=== PATIENT | female | born 1960 | race Caucasian/White ===

== ENCOUNTER → 2016-09-04 | Outpatient (CLI) | payer BC, MEDICARE ==
[2016-09-04 11:37] LABS: Blood Urea Nitrogen 16 mg/dL (7-17); Non-African American GFR(MDRD) >60 (>60 ml/min/1.73 sqM)
--- NOTE | 2016-09-04 12:42 | CT ---
EXAMINATION TYPE: CT abdomen wo/w con DATE OF EXAM: 09/04/2016 12:28 PM HISTORY: Epigastric pain and nausea per brewing technician. Acute pancreatitis per order. CT DLP: 1607.8mGycm Automated Exposure Control for Dose Reduction was Utilized. CONTRAST: CT scan of the abdomen is performed with oral and without and with IV Contrast, patient injected with 100 mL of Omnipaque 300. COMPARISON: CT abdomen pelvis January 27, 2016.. FINDINGS: LUNG BASES: No significant abnormality is appreciated. LIVER/GB: No significant abnormality is appreciated. PANCREAS: Pancreas is normal in size. No ductal dilatation is seen. No suspicious solid or cystic mas ses identified. No calcifications are noted. Homogeneous postcontrast enhancement is present without surrounding fat stranding seen. SPLEEN: No significant abnormality is seen. ADRENALS: No significant abnormality is seen. KIDNEYS: No renal calculi identified on today's noncontrast study. BOWEL: Sutures from appendectomy are seen at base of cecum. There is no suspicious small or large bow el dilatation. LYMPH NODES: No greater than 1cm abdominal lymph nodes are appreciated. Some scattered subcentimeter retroperitoneal lymph nodes along course of aorta and IVC are identified. OSSEOUS STRUCTURES: Some spurring in the lower thoracic spine is present. OTHER: There is fairly moderate aftereffect change of distal abdominal aorta and iliac branch vessels . Small caliber vessels distally are noted. IMPRESSION: No CT finding for complication related to acute pancreatitis. Pancreas appears unremarkab le. No bowel obstruction is seen. No significant finding is seen to account for patient's symptoms on this exam.
== END | disposition home or self-care (01) ==
LOC: RADCTMAIN 10:56
PROVIDERS: ATTEND Family Medicine
DX: K85.90 Acute pancreatitis without necrosis or infection, unspecified (principal)
CPT/HCPCS: 82565; 84520; 74170; 36415; Q9967

== ENCOUNTER 2016-10-11 19:58 | Emergency (ER) | payer BC, MEDICARE ==
[2016-10-11] MEDS ORDERED: PANTOPRAZOLE 40 MG/10 ML VIAL IVP STA (20:43)
[2016-10-11] MEDS ORDERED: SODIUM CHLORIDE 0.9% 1,000 ML IV STA (20:43)
--- NOTE | 2016-10-11 20:49 | ED ---
General Adult HPI - General Source: patient, family, RN notes reviewed, old records reviewed Mode of arrival: ambulatory Limitations: no limitations <Sandeep Magdaleno - Last Filed: 10/11/16 20:44> <Rafael Cervantes - Last Filed: 10/11/16 23:45> - General Chief complaint: Abdominal Pain Stated complaint: Abd Pain Time Seen by Provider: 10/11/16 20:28 - History of Present Illness Initial comments: Chief complaint history of present illness this is a 56-year-old female here with family. The patient reports for the past 2 weeks she been having epigastric radiating around to the right upper quadrant around to the right flank area. Everything causes pain even drinking water. Patient had this pain several different times over the past several years no specific diagnosis made though on old chart does speak of pancreatitis at one time. Patient denies any change in the color of her stool or urine. (Sandeep Magdaleno) - Related Data Home Medications Medication Instructions Recorded Confirmed Aspirin 325 mg PO HS 09/26/14 10/11/16 Atorvastatin [Lipitor] 80 mg PO HS 09/26/14 10/11/16 Gabapentin [Neurontin] 100 mg PO HS 09/26/14 10/11/16 Gemfibrozil [Lopid] 600 mg PO AC-BID 09/26/14 10/11/16 Ipratropium/Albuterol Sulfate 1 puff INHALATION RT-QID PRN 09/26/14 10/11/16 [Combivent Respimat Inhaler] Nitroglycerin 1 spray SL ONCE PRN 09/26/14 10/11/16 Omeprazole 40 mg PO DAILY 09/26/14 10/11/16 metFORMIN HCL [Metformin HCl ER] 500 mg PO DAILY 09/26/14 10/11/16 Ranitidine HCl [Zantac] 150 mg PO BID 03/05/15 10/11/16 Insulin Aspart [NovoLOG] See Protocol SQ CONTINUOUS 03/06/15 10/11/16 Liraglutide [Victoza 3-Alexandro] 1.8 mg SQ DAILY 01/27/16 10/11/16 Metoclopramide [Reglan] 10 mg PO ACHS 01/27/16 10/11/16 Previous Rx's Medication Instructions Recorded Atenolol [Tenormin] 25 mg PO DAILY #0 tab 01/29/16 Docusate [Colace] 100 mg PO BID cap 01/29/16 Lisinopril [Zestril] 40 mg PO DAILY #60 tab 01/29/16 Hydrocodone/Acetaminophen [Marblemount 1 each PO Q6HR PRN #20 tab 10/11/16 5-325] Allergies Allergy/AdvReac Type Severity Reaction Status Date / Time No Known Allergies Allergy Verified 10/11/16 20:18 Review of Systems ROS Other: All systems not noted in ROS Statement are negative. <Sandeep Magdaleno - Last Filed: 10/11/16 20:44> ROS Other: All systems not noted in ROS Statement are negative. <Rafael Cervantes - Last Filed: 10/11/16 23:45> ROS Statement: Those systems with pertinent positive or pertinent negative responses have been documented in the HPI. Review of systems no visual acuity changes no headache no stiff neck no chest pain or shortness of breath the patient's pain radiates from the epigastric region to the right upper quadrant to the right flank area. No nausea no vomiting. Anything she eats or drinks causes pain. No problems, no neuro deficits. All systems are reviewed. Past medical problems significant for angina and chest pain with an [place]. Insulin-dependent diabetes mellitus she has a pump. Patient also history of pancreatitis. Surgeries carpal tunnel, bilateral. Open-heart surgery approximately 10 years ago. And previous appendectomy. Family history no cancers. Patient denies any ALLERGIES. She does smoke strongly encouraged to stop denies alcohol use. (Sandeep Magdaleno) Past Medical History Past Medical History: Chest Pain / Angina, Diabetes Mellitus, Myocardial Infarction ([place]) Additional Past Medical History / Comment(s): Pancreatitis Last Myocardial Infarction Date:: 2002 History of Any Multi-Drug Resistant Organisms: None Reported Past Surgical History: Appendectomy Additional Past Surgical History / Comment(s): Open heart in 2002. bilateral carpal tunnel sx Past Anesthesia/Blood Transfusion Reactions: No Reported Reaction Past Psychological History: No Psychological Hx Reported Smoking Status: Current every day smoker Past Alcohol Use History: None Reported Past Drug Use History: None Reported - Past Family History Mother History Unknown: Yes <Sandeep Magdaleno - Last Filed: 10/11/16 20:44> General Exam Limitations: no limitations <Sandeep Magdaleno - Last Filed: 10/11/16 20:44> <Rafael Cervantes - Last Filed: 10/11/16 23:45> - General Exam Comments Initial Comments: General: The patient is awake and alert, complains of a two-week history of pain from the epigastric region to the right upper quadrant. Anything I would think she eats or drinks increases the pain. Vital signs show temperature 98.2 pulse 88 respiratory rate 20 pulse ox 96% room air initial blood pressure 181/80. This be repeated. A she will be following up with her family physician this week. Eye: Pupils are equal, round and reactive to light, extra-ocular movements are intact ; there is normal conjunctiva bilaterally. No signs of icterus. Ears, nose, mouth and throat: There are moist mucous membranes and no oral lesions. The patient's edentulous Neck: The neck is supple, there is no tenderness , no anterior cervical lymphadenopathy. Cardiovascular: There is a regular rate and rhythm. No murmur, rub or gallop is appreciated. Respiratory: Lungs are clear to auscultation, respirations are non-labored, breath sounds are equal. No wheezes, stridor, rales, or rhonchi. Gastrointestinal: Pain with even mild palpation from the epigastric region to the right upper quadrant. Positive Carbajal sign. No organomegaly. Patient states she feels bloated. Back: The pain starts in the epigastric to right upper quadrant goes sometimes into the right flank and the right shoulder area. Musculoskeletal: Normal ROM, no tenderness, There is no pedal edema. There is no calf tenderness or swelling. Sensation intact. Pulses equal bilaterally 2+. Neurological: No evidence of a neuro deficits. No complaints of weakness or balance problems. Skin: Skin is warm and dry and no rashes or lesions are noted. Dry skin wrists feet. (Sandeep Magdaleno) Medical Decision Making <Sandeep Magdaleno - Last Filed: 10/11/16 20:44> - Lab Data Result diagrams: 10/11/16 21:08 10/11/16 21:08 <Rafael Cervantes - Last Filed: 10/11/16 23:45> - Medical Decision Making I receive this patient has a sign out, pending the lab studies. Following the medications and the studies I reevaluated the patient. She is feeling much better and requests to go home. We discussed appropriate further care and follow-up for pancreatitis as well as return criteria. I did review her computed tomography scan from last year which does not show any concerning mass. I did discuss recommendation to have GI follow-up and discuss possibility of ERCP versus MRCP, though she has had previous pancreatitis and it sounds like this may be related to hyperlipidemia. Again the patient did decline admission (Rafael Cervantes) - Lab Data Lab Results 10/11/16 10/11/16 10/11/16 Range/Units 21:08 21:08 21:08 WBC 9.3 (3.8-10.6) k/uL RBC 4.70 (3.80-5.40) m/uL Hgb 14.1 (11.4-16.0) gm/dL Hct 42.6 (34.0-46.0) % MCV 90.6 (80.0-100.0) fL MCH 30.0 (25.0-35.0) pg MCHC 33.1 (31.0-37.0) g/dL RDW 13.2 (11.5-15.5) % Plt Count 234 (150-450) k/uL Neutrophils % 52 % Lymphocytes % 38 % Monocytes % 5 % Eosinophils % 2 % Basophils % 1 % Neutrophils # 4.8 (1.3-7.7) k/uL Lymphocytes # 3.5 (1.0-4.8) k/uL Monocytes # 0.5 (0-1.0) k/uL Eosinophils # 0.2 (0-0.7) k/uL Basophils # 0.1 (0-0.2) k/uL Sodium 140 (137-145) mmol/L Potassium 4.3 (3.5-5.1) mmol/L Chloride 103 (98-107) mmol/L Carbon Dioxide 25 (22-30) mmol/L Anion Gap 12 mmol/L BUN 15 (7-17) mg/dL Creatinine 0.55 (0.52-1.04) mg/dL Est GFR (MDRD) Af Amer >60 (>60 ml/min/1.73 sqM) Est GFR (MDRD) Non-Af >60 (>60 ml/min/1.73 sqM) Glucose 317 H (74-99) mg/dL Plasma Lactic Acid Fabrizio 1.8 (0.7-2.0) mmol/L Calcium 9.4 (8.4-10.2) mg/dL Total Bilirubin 0.5 (0.2-1.3) mg/dL AST 18 (14-36) U/L ALT 27 (9-52) U/L Alkaline Phosphatase 148 H (38-126) U/L Total Protein 7.2 (6.3-8.2) g/dL Albumin 4.2 (3.5-5.0) g/dL Amylase 255 H (30-110) U/L Lipase 3281 H (23-300) U/L Urine Color Urine Appearance (Clear) Urine pH (5.0-8.0) Ur Specific Lane (1.001-1.035) Urine Protein (Negative) Urine Glucose (UA) (Negative) Urine Ketones (Negative) Urine Blood (Negative) Urine Nitrite (Negative) Urine Bilirubin (Negative) Urine Urobilinogen (<2.0) mg/dL Ur Leukocyte Esterase (Negative) 10/11/16 Range/Units 21:08 WBC (3.8-10.6) k/uL RBC (3.80-5.40) m/uL Hgb (11.4-16.0) gm/dL Hct (34.0-46.0) % MCV (80.0-100.0) fL MCH (25.0-35.0) pg MCHC (31.0-37.0) g/dL RDW (11.5-15.5) % Plt Count (150-450) k/uL Neutrophils % % Lymphocytes % % Monocytes % % Eosinophils % % Basophils % % Neutrophils # (1.3-7.7) k/uL Lymphocytes # (1.0-4.8) k/uL Monocytes # (0-1.0) k/uL Eosinophils # (0-0.7) k/uL Basophils # (0-0.2) k/uL Sodium (137-145) mmol/L Potassium (3.5-5.1) mmol/L Chloride (98-107) mmol/L Carbon Dioxide (22-30) mmol/L Anion Gap mmol/L BUN (7-17) mg/dL Creatinine (0.52-1.04) mg/dL Est GFR (MDRD) Af Amer (>60 ml/min/1.73 sqM) Est GFR (MDRD) Non-Af (>60 ml/min/1.73 sqM) Glucose (74-99) mg/dL Plasma Lactic Acid Fabrizio (0.7-2.0) mmol/L Calcium (8.4-10.2) mg/dL Total Bilirubin (0.2-1.3) mg/dL AST (14-36) U/L ALT (9-52) U/L Alkaline Phosphatase (38-126) U/L Total Protein (6.3-8.2) g/dL Albumin (3.5-5.0) g/dL Amylase (30-110) U/L Lipase (23-300) U/L Urine Color Yellow Urine Appearance Clear (Clear) Urine pH 6.0 (5.0-8.0) Ur Specific Lane 1.013 (1.001-1.035) Urine Protein Negative (Negative) Urine Glucose (UA) 3+ H (Negative) Urine Ketones Negative (Negative) Urine Blood Negative (Negative) Urine Nitrite Negative (Negative) Urine Bilirubin Negative (Negative) Urine Urobilinogen <2.0 (<2.0) mg/dL Ur Leukocyte Esterase Negative (Negative) Disposition <Sandeep Magdaleno - Last Filed: 10/11/16 20:44> <Rafael Cervantes - Last Filed: 10/11/16 23:45> Clinical Impression: Acute pancreatitis Disposition: HOME SELF-CARE Condition: Good Instructions: Pancreatitis (ED) Additional Instructions: As we discussed, follow-up with the combat systems operator mine warfare to discuss having a possible ERCP versus MRCP. As we discussed if things are worsening return to be admitted to the hospital. Prescriptions: Hydrocodone/Acetaminophen [Marblemount 5-325] 1 each PO Q6HR PRN #20 tab PRN Reason: Pain Referrals: Cedrick Flores MD [Primary Care Provider] - 1-2 days Alex Martinez MD [STAFF PHYSICIAN] - 1-2 days
[2016-10-11 21:23] LABS: Appearance,Urine Clear (Clear); Bilirubin,Urine Negative (Negative); Glucose,Urine (UA) 3+ (Negative); Ketones,Urine Negative (Negative); Leukocyte Esterase,Urine Negative (Negative); Nitrite,Urine Negative (Negative); Protein,Urine Negative (Negative); Specific Gravity,Urine 1.013 (1.001-1.035); UA Billing (MACRO vs. MICRO) CHEM; Urobilinogen,Urine <2.0 mg/dL (<2.0)
[2016-10-11 21:27] LABS: Basophils # (A) 0.1 k/uL (0-0.2); Basophils % (A) 1 %; CH 29.9; CHCM 33.1; Eosinophils # (A) 0.2 k/uL (0-0.7); Eosinophils % (A) 2 %; HCT 42.6 % (34.0-46.0); HDW 2.52; HGB 14.1 gm/dL (11.4-16.0); Luc # (Auto) 0.24; Luc % (Auto) 3; Lymphocytes # (A) 3.5 k/uL (1.0-4.8); Lymphocytes % (A) 38 %; MCHC 33.1 g/dL (31.0-37.0); MCV 90.6 fL (80.0-100.0); Mean Platelet Volume 7.3; Monocytes # (A) 0.5 k/uL (0-1.0); Monocytes % (A) 5 %; Neutrophils # (A) 4.8 k/uL (1.3-7.7); Neutrophils % (A) 52 %; RDW 13.2 % (11.5-15.5); WBC 9.3 k/uL (3.8-10.6); WBC (Perox) 9.44
[2016-10-11 21:32] LABS: ALT 27 U/L (9-52); AST 18 U/L (14-36); Alkaline Phosphatase 148 U/L (38-126); Amylase 255 U/L (30-110); Anion Gap 12 mmol/L; Blood Urea Nitrogen 15 mg/dL (7-17); Calcium 9.4 mg/dL (8.4-10.2); Carbon Dioxide 25 mmol/L (22-30); Chloride 103 mmol/L (98-107); Glucose 317 mg/dL (74-99); Non-African American GFR(MDRD) >60 (>60 ml/min/1.73 sqM); Potassium 4.3 mmol/L (3.5-5.1); Sodium 140 mmol/L (137-145); Total Bilirubin 0.5 mg/dL (0.2-1.3); Total Protein 7.2 g/dL (6.3-8.2)
[2016-10-11] MEDS ORDERED: MAG HYDROX/AL HYDROX/SIMETH 30 ML, HYOSCYAMINE ELIXIR 10 ML, CIMETIDINE HCL 300 MG, LID... PO STA ×4 (21:39)
--- NOTE | 2016-10-11 21:39 | XR ---
EXAMINATION TYPE: XR abdomen 2V DATE OF EXAM: 10/11/2016 9:19 PM COMPARISON: CT abdomen dated 09/04/2016. HISTORY: Abdominal pain with history of pancreatitis. TECHNIQUE: Supine and upright abdominal radiographs were obtained. FINDINGS: Partially visualized sternotomy wires are evident within the lower thorax. Bowel gas patter n is nonobstructive. No dilated loops of bowel are seen. No abnormal calcifications are seen within t he abdomen or pelvis. Multiple phleboliths are seen within the low true pelvis. No evidence of organo megaly. Soft tissues are grossly unremarkable. IMPRESSION: Nonobstructive bowel gas pattern. No acute intra-abdominal process.
[2016-10-11 21:54] VITALS: RESP 17
[2016-10-11] MEDS ORDERED: HYDROmorphone 1 MG/ML 1 ML SYRINGE IVP STA (22:38)
[2016-10-11 23:57] VITALS: BP 162/76; PULSE 84; TEMP 98.7
== END 2016-10-11 23:56 | disposition home or self-care (01) ==
LOC: EC 19:58
DX: K85.90 Acute pancreatitis without necrosis or infection, unspecified (principal); E11.9 Type 2 diabetes mellitus without complications; I25.2 Old myocardial infarction; F17.200 Nicotine dependence, unspecified, uncomplicated; Z90.49 Acquired absence of other specified parts of digestive tract; Z79.4 Long term (current) use of insulin; Z79.82 Long term (current) use of aspirin; Z79.899 Other long term (current) drug therapy
CPT/HCPCS: 99284 ×2; 96374 ×2; 96375 ×2; 96361 ×4; 36415; 80053; 82150; 83605; 83690; 85025; 81003; 87086; 74020; J1170; C9113

== ENCOUNTER → 2017-11-13 | Outpatient (CLI) | payer BC, MEDICARE ==
[2017-11-13 06:58] LABS: Blood Urea Nitrogen 15 mg/dL (7-17)
--- NOTE | 2017-11-13 08:40 | CT ---
EXAMINATION TYPE: CT abdomen w con DATE OF EXAM: 11/13/2017 COMPARISON: September 04, 2016 HISTORY: Epigastric pain CT DLP: 1111.9 mGycm Automated exposure control for dose reduction was used. TECHNIQUE: Helical acquisition of images was performed from the lung bases through the top of iliac crest to include entire abdomen. CONTRAST: Performed with Oral Contrast and with IV Contrast, patient injected with 100 mL of Isovue 300. FINDINGS: LUNG BASES: No significant abnormality is appreciated. LIVER/GB: No significant abnormality is appreciated. Minimal hepatic steatosis. Gallbladder is unrema rkable. PANCREAS: No significant abnormality is seen. SPLEEN: No significant abnormality is seen. ADRENALS: No significant abnormality is seen. No solid masses seen. No evidence for hydronephrosis or nephrolithiasis. KIDNEYS: No significant abnormality is seen. BOWEL: No significant abnormality is seen. LYMPH NODES: No significant abnormality is seen. OSSEOUS STRUCTURES: No significant abnormality is seen. FREE AIR: No free air is visualized. OTHER: IMPRESSION: No significant abnormality to account for the patient's symptoms.
== END | disposition home or self-care (01) ==
LOC: RADCTMAIN 06:22
DX: R10.13 Epigastric pain (principal)
CPT/HCPCS: 82565; 84520; 74160; 36415; Q9967

== ENCOUNTER → 2018-07-16 | Outpatient (CLI) | payer BC, MEDICARE ==
--- NOTE | 2018-07-16 12:37 | US ---
EXAMINATION TYPE: US venous doppler duplex LE LT DATE OF EXAM: 07/16/2018 12:12 PM COMPARISON: NONE CLINICAL HISTORY: I82.402 ACUTE EMBOLISM AND THROMBOSIS OF DEEP VEINS. Vein stripping for heart. Ant erior calf pain. Aspirin. SIDE PERFORMED: Left TECHNIQUE: The lower extremity deep venous system is examined utilizing real time linear array sonog epi with graded compression, doppler sonography and color-flow sonography. VESSELS IMAGED: External Iliac Vein (EIV) Common Femoral Vein Deep Femoral Vein Greater Saphenous Vein * Femoral Vein Popliteal Vein Small Saphenous Vein *--limited visualization Proximal Calf Veins (* superficial vessels) Left Leg: Negative for DVT IMPRESSION: No evidence for DVT.
== END ==
LOC: RADUSWWP 11:40
PROVIDERS: ATTEND Family Medicine
DX: I82.402 Acute embolism and thrombosis of unspecified deep veins of left lower extremity (principal)

== ENCOUNTER → 2018-12-13 | Outpatient (CLI) | payer BC, MEDICARE ==
--- NOTE | 2018-12-14 11:49 | MM ---
Reason for exam: additional evaluation requested from prior study. Last mammogram was performed 2 years and 6 months ago. History: Patient is postmenopausal. Physical Findings: Nurse did not find any significant physical abnormalities on exam. MG Diagnostic Mammo w CAD FORREST Bilateral CC and MLO view(s) were taken. Prior study comparison: June 19, 2016, bilateral MG screening mammo w CAD. July 31, 2014, bilateral MG diagnostic mammo w CAD FORREST. The breast tissue is heterogeneously dense. This may lower the sensitivity of mammography. No suspicious abnormality. These results were verbally communicated with the patient and result sheet given to the patient on 12/13/18. ASSESSMENT: Incomplete: need additional imaging evaluation, BI-RAD 0 RECOMMENDATION: Ultrasound of the left breast. (pain)
--- NOTE | 2018-12-14 11:51 | USB ---
Reason for exam: additional evaluation requested from abnormal screening. History: Patient is postmenopausal. US Breast Limited LT Left limited breast ultrasound including focal area of concern, retroareolar and axilla demonstrates no cystic or solid lesion seen. No suspicious finding. These results were verbally communicated with the patient and result sheet given to the patient on 12/13/18. ASSESSMENT: Negative, BI-RAD 1 RECOMMENDATION: Routine screening mammogram of both breasts in 1 year.
== END | disposition home or self-care (01) ==
LOC: RADMAMWWP 07:02
PROVIDERS: ATTEND Family Medicine
DX: N63.0 Unspecified lump in unspecified breast (principal); R92.8 Other abnormal and inconclusive findings on diagnostic imaging of breast
CPT/HCPCS: 77066

== ENCOUNTER → 2020-03-16 | Outpatient (CLI) | payer BC, MEDICARE ==
--- NOTE | 2020-03-16 12:51 | US ---
EXAMINATION TYPE: US pelvis complete transvag DATE OF EXAM: 03/16/2020 COMPARISON: 06/18/2016 CLINICAL HISTORY: 52-year-old female R10.12 pelvic pain. Intermittent pelvic pain, 2, para 2, post menopausal TECHNIQUE: Transabdominal sonographic images of the pelvis were acquired. Transvaginal sonographic i mages were medically necessary to better assess the following anatomy: ovaries Date of LMP: 23 years ago FINDINGS: EXAM MEASUREMENTS: Uterus: 6.6 x 3.4 x 4.4 cm Endometrial Stripe: 0.6 cm Right Ovary: 1.2 x 0.7 x 1.1 cm Left Ovary: not seen 1. Uterus: anteverted, heterogeneous, tiny 0.3cm anechoic area in NIMO, unchanged from 06/18/2016 2. Endometrium: Borderline for a postmenopausal female without bleeding. 3. Right Ovary: 0.9cm cystic area 4. Left Ovary: not seen 5. Bilateral Adnexa: wnl 6. Posterior cul-de-sac: wnl IMPRESSION: 1. Endometrial stripe is borderline in thickness at 6 mm for a postmenopausal female. Consider follow -up in 3-6 months to reassess. 2. A 9 mm cystic area of the right ovary. This should also be reassessed at the patient's follow-up g iven postmenopausal status. 3. The left ovary could not be visualized.
== END | disposition home or self-care (01) ==
LOC: RADUSWWP 09:26
PROVIDERS: ATTEND Family Medicine
DX: N85.8 Other specified noninflammatory disorders of uterus (principal); N83.201 Unspecified ovarian cyst, right side; Z78.0 Asymptomatic menopausal state
CPT/HCPCS: 76830; 76856

== ENCOUNTER → 2020-03-30 | Outpatient (CLI) | payer BC, MEDICARE ==
--- NOTE | 2020-04-02 11:54 | MM ---
Reason for exam: screening (asymptomatic). Last mammogram was performed 1 year and 3 months ago. History: Patient is postmenopausal. Physical Findings: A clinical breast exam by your physician is recommended on an annual basis and results should be correlated with mammographic findings. MG Screening Mammo w CAD Bilateral CC and MLO view(s) were taken. Prior study comparison: December 13, 2018, bilateral MG diagnostic mammo w CAD FORREST. June 19, 2016, bilateral MG screening mammo w CAD. There are scattered fibroglandular densities. No significant changes when compared with prior studies. ASSESSMENT: Benign, BI-RAD 2 RECOMMENDATION: Routine screening mammogram of both breasts in 1 year.
== END | disposition home or self-care (01) ==
LOC: RADMAMWWP 08:22
PROVIDERS: ATTEND Family Medicine
DX: Z12.31 Encounter for screening mammogram for malignant neoplasm of breast (principal)
CPT/HCPCS: 77067

== ENCOUNTER 2021-05-15 11:05 | Inpatient (IN) | payer BC, MEDICARE ==
[2021-05-15] MEDS ORDERED: SODIUM CHLORIDE 0.9% 1,000 ML IV STA ×3 (11:16→13:44)
[2021-05-15] MEDS ORDERED: ASPIRIN 81 MG PO STA (11:16)
[2021-05-15] MEDS ORDERED: ONDANSETRON 4 MG/2 ML VIAL IVP STA (11:17)
--- NOTE | 2021-05-15 11:44 | ED ---
Chest Pain HPI - General Chief Complaint: Chest Pain Stated Complaint: Chest Pain Time Seen by Provider: 05/15/21 11:05 Source: patient, EMS, RN notes reviewed Mode of arrival: EMS Limitations: no limitations - History of Present Illness Initial Comments: 61-year-old female who states for past several weeks to having intermittent chest pain sharp stabbing pain in the right mid chest radiating around to the left right side. Also complains of shortness of breath exertional dyspnea. She was brought in by EMS she was found to be hypotensive 71/60 was the best pressure-like again and she did receive a 500 mL normal saline bolus. She also had been eating and drinking much she's been eating soup mainly. She also found have a high blood sugar per paramedics. No fevers or chills she has been nauseated. She was given aspirin but she threw up in the ambulance. She finally decided to call 911 can she wasn't get better. MD Complaint: chest pain, other - Related Data Home Medications Medication Instructions Recorded Confirmed Aspirin 325 mg PO HS 09/26/14 05/15/21 Atorvastatin [Lipitor] 80 mg PO HS 09/26/14 05/15/21 Gabapentin [Neurontin] 100 mg PO HS 09/26/14 05/15/21 Ipratropium/Albuterol Sulfate 1 puff INHALATION RT-QID PRN 09/26/14 05/15/21 [Combivent Respimat Inhaler] gemfibroziL [Lopid] 600 mg PO AC-BID 09/26/14 05/15/21 metFORMIN HCL [Metformin HCl ER] 500 mg PO DAILY 09/26/14 05/15/21 Enalapril Maleate 10 mg PO DAILY 05/15/21 05/15/21 Escitalopram [Lexapro] 10 mg PO DAILY 05/15/21 05/15/21 Insulin Aspart [NovoLOG] 20 units SQ AC-TID 05/15/21 05/15/21 Insulin Detemir [Levemir Flextouch 80 units SQ HS 05/15/21 05/15/21 Pen] Isosorbide Mononitrate ER [Imdur] 30 mg PO DAILY 05/15/21 05/15/21 Ondansetron Odt [Zofran Odt] 4 mg PO Q12HR PRN 05/15/21 05/15/21 Previous Rx's Medication Instructions Recorded atenoloL [Tenormin] 25 mg PO DAILY #0 tab 01/29/16 Allergies Allergy/AdvReac Type Severity Reaction Status Date / Time No Known Allergies Allergy Verified 05/15/21 12:23 Review of Systems ROS Statement: Those systems with pertinent positive or pertinent negative responses have been documented in the HPI. ROS Other: All systems not noted in ROS Statement are negative. EKG Findings - EKG Results: EKG: interpreted by SONIDO, sinus rhythm (Sinus rhythm with sinus arrhythmia rate 64 ME interval 156 QRS 86 QT/ QTC of 466/480 right word axis nonspecific ST-T wave configuration) Past Medical History Past Medical History: Chest Pain / Angina, Diabetes Mellitus, GERD/Reflux, Myocardial Infarction ([place]) Additional Past Medical History / Comment(s): Pancreatitis Last Myocardial Infarction Date:: 2002 History of Any Multi-Drug Resistant Organisms: None Reported Past Surgical History: Appendectomy Additional Past Surgical History / Comment(s): Open heart in 2002. bilateral carpal tunnel sx Past Anesthesia/Blood Transfusion Reactions: No Reported Reaction Past Psychological History: No Psychological Hx Reported Smoking Status: Current every day smoker Past Alcohol Use History: None Reported Past Drug Use History: None Reported - Past Family History Mother History Unknown: Yes General Exam - General Exam Comments Initial Comments: This is a well-developed well-nourished awake alert oriented 3 female Limitations: no limitations General appearance: alert, anxious Head exam: Present: atraumatic, normocephalic, normal inspection Eye exam: Present: normal appearance, PERRL, EOMI. Absent: scleral icterus, conjunctival injection, periorbital swelling ENT exam: Present: mucous membranes dry Neck exam: Present: normal inspection. Absent: tenderness, meningismus, lymphadenopathy Respiratory exam: Present: chest wall tenderness (Tenderness palpation of the right side of the chest wall with diminished breath sounds more so on the right than the left no step-off or crepitation no rashes or bruising seen), decreased breath sounds. Absent: respiratory distress, wheezes, rales, rhonchi, stridor Cardiovascular Exam: Present: regular rate, normal rhythm, normal heart sounds. Absent: systolic murmur, diastolic murmur, rubs, gallop, clicks GI/Abdominal exam: Present: soft, normal bowel sounds. Absent: distended, tenderness, guarding, rebound, rigid Extremities exam: Present: normal inspection, full ROM, normal capillary refill. Absent: tenderness, pedal edema, joint swelling, calf tenderness Back exam: Present: normal inspection Neurological exam: Present: alert, oriented X3, CN II-XII intact Psychiatric exam: Present: normal affect, normal mood Skin exam: Present: warm, dry, intact, normal color. Absent: rash Course Vital Signs 05/15/21 05/15/21 05/15/21 11:15 13:40 14:16 Temperature 97.8 F Pulse Rate 71 73 74 Respiratory 18 18 18 Rate Blood Pressure 85/48 75/46 76/46 O2 Sat by Pulse 100 98 99 Oximetry 05/15/21 05/15/21 14:21 15:11 Temperature Pulse Rate 75 76 Respiratory 18 18 Rate Blood Pressure 90/42 84/41 O2 Sat by Pulse 98 Oximetry - Reevaluation(s) Reevaluation #1: 05/15/21 15:32 I did reevaluate the patient multiple occasions her blood pressure does show evidence of improvement and trending upward. This is after IV fluids. Chest Pain MDM - MDM Imaging reviewed evidence of a right lower lobe infiltrate. I did discuss findings with the patient as well as with Dr. Carmona who did come the emergency department see the patient as well as with Dr. Capps for intensive care management patient be admitted for inpatient evaluation treatment of DKA pancreatitis and pneumonia as well as dehydration and hypotensive episode Critical Care Time Critical Care Time: Yes Total Critical Care Time: 39 Critical Care Time: Critical care time includes initial presentation with history physical labs x- rays multiple reevaluation patient responsive therapy discuss with the beta physician and weigh box tender initial orders documentation of the above Disposition Clinical Impression: Diabetic ketoacidosis, Hypotensive episode, Right lower lobe pneumonia, Dehydration, Pancreatitis Disposition: ADMITTED IP TO THIS [facility] Condition: Serious Referrals: Cedrick Flores MD [Primary Care Provider] - 1-2 days
--- NOTE | 2021-05-15 12:15 | XR ---
EXAMINATION TYPE: XR chest 2V DATE OF EXAM: 05/15/2021 COMPARISON: Chest x-ray 01/27/2016 HISTORY: Chest pain TECHNIQUE: Frontal and lateral views of the chest are obtained. FINDINGS: Patient is post median sternotomy, superior sternal wire is fractured as on prior exam. Ca rdiac mediastinal silhouette shows a similar appearance, heart is enlarged. No evident pneumothorax o r pleural effusion. There are overlying leads. Some minimal patchy densities questioned at the right lung base, right lower lobe. Exam somewhat compromised by patient body habitus. IMPRESSION: Correlate for possible right lower lobe pneumonia. Stable cardiomegaly.
[2021-05-15 12:18] LABS: ALT 14 U/L (4-34); African American GFR (CKD) 78 (>60 ml/min/1.73 sqM); Albumin 3.7 g/dL (3.5-5.0); Anion Gap 22 mmol/L; Blood Urea Nitrogen 26 mg/dL (7-17); Chloride 98 mmol/L (98-107); Lipase 1951 U/L (23-300); Non-African American GFR(CKD) 68 (>60 ml/min/1.73 sqM); Sodium 127 mmol/L (137-145); Total Bilirubin 0.7 mg/dL (0.2-1.3); Total Protein 6.5 g/dL (6.3-8.2)
[2021-05-15 12:22] LABS: Basophils % (A) 0 %; Eosinophils % (A) 0 %; HCT 44.8 % (34.0-46.0); HGB 14.2 gm/dL (11.4-16.0); Lymphocytes # (A) 2.5 k/uL (1.0-4.8); Lymphocytes % (A) 15 %; MCH 32.5 pg (25.0-35.0); MCHC 31.7 g/dL (31.0-37.0); MCV 102.2 fL (80.0-100.0); Macrocytosis Slight; Mean Platelet Volume 10.6; Monocytes # (A) 0.9 k/uL (0-1.0); Monocytes % (A) 6 %; Neutrophils # (A) 12.7 k/uL (1.3-7.7); Neutrophils % (A) 77 %; Platelet Count 219 k/uL (150-450); RBC 4.38 m/uL (3.80-5.40); RDW 12.8 % (11.5-15.5); WBC 16.5 k/uL (3.8-10.6)
[2021-05-15 12:26] LABS: AST 18 U/L (14-36); Alkaline Phosphatase 83 U/L (38-126); Carbon Dioxide 7 mmol/L (22-30); Glucose 620 mg/dL (74-99); Magnesium 1.9 mg/dL (1.6-2.3); Potassium 5.5 mmol/L (3.5-5.1)
[2021-05-15 12:27] LABS: INR 1.1 (<1.2); Partial Thromboplastin Time 23.8 sec (22.0-30.0); Prothrombin Time 11.6 sec (9.0-12.0)
[2021-05-15] MEDS ORDERED: cefTRIAXone IN SWFI 1,000 MG/10 ML SYRINGE IVP STA (12:47)
[2021-05-15] MEDS ORDERED: INSULIN REGULAR BOLUS (FROM DRIP BAG) IV ONE (13:15)
[2021-05-15] MEDS ORDERED: Potassium Replacement Protocol 1 EACH MISC MISCELLANE PRN (13:15)
[2021-05-15] MEDS ORDERED: Magnesium Replacement Protocol 1 EACH MISC MISCELLANE PRN (13:15)
[2021-05-15 14:06] LABS: VBG PH 7.12 (7.31-7.41)
[2021-05-15] MEDS: SODIUM CHLORIDE 0.9% 1,000 ML IV SCH ×3 (14:24→23:03)
[2021-05-15] MEDS: INSULIN REGULAR 100 UNIT in SODIUM CHLORIDE 0.9% 100 ML IV SCH (14:48)
[2021-05-15 14:58] LABS: Glucose,Whole Blood >600 mg/dL (75-99)
[2021-05-15] MEDS ORDERED: fentaNYL (PF) 50 MCG/ML 2 ML AMP IVP PRN (15:34)
[2021-05-15] MEDS ORDERED: ACETAMINOPHEN TAB 325 MG TAB PO PRN (15:35)
[2021-05-15] MEDS ORDERED: NALOXONE 0.4 MG/ML 1 ML VIAL IV PRN (15:35)
[2021-05-15] MEDS ORDERED: AZITHROMYCIN 500 MG in SODIUM CHLORIDE 0.9% 250 ML IVPB STA (15:38)
[2021-05-15 15:53] LABS: Glucose,Whole Blood 505 mg/dL (75-99)
[2021-05-15 16:19] LABS: Chloride 108 mmol/L (98-107)
[2021-05-15 16:22] LABS: African American GFR (CKD) >90 (>60 ml/min/1.73 sqM); Anion Gap 16 mmol/L; Blood Urea Nitrogen 29 mg/dL (7-17); Glucose 495 mg/dL (74-99); Non-African American GFR(CKD) 79 (>60 ml/min/1.73 sqM); Phosphorus 3.5 mg/dL (2.5-4.5); Potassium 4.1 mmol/L (3.5-5.1); Sodium 132 mmol/L (137-145)
[2021-05-15 16:25] LABS: Carbon Dioxide 8 mmol/L (22-30)
[2021-05-15 16:54] LABS: Glucose,Whole Blood 491 mg/dL (75-99)
[2021-05-15] MEDS ORDERED: ALPRAZolam 0.25 MG TAB PO PRN (16:56)
[2021-05-15] MEDS ORDERED: ONDANSETRON 4 MG/2 ML VIAL IVP PRN (16:56)
--- NOTE | 2021-05-15 16:58 | CT ---
CT CHEST FOR PULMONARY EMBOLISM. EXAMINATION TYPE: CT chest angio for PE DATE OF EXAM: 05/15/2021 INDICATION: Patient poor historian. CT DLP: 1329.7 mGycm, Automated exposure control for dose reduction was used. CONTRAST: Patient injected with 100 mL of Isovue 300. COMPARISON: None TECHNIQUE: CT of the chest is performed on a spiral scan at 2 mm thick sections. Study is performed with intravenous contrast timed for evaluation for pulmonary embolism. This will limit additional po rtions of the evaluation. 3-D MIP images reconstructed by the technologist are reviewed on the compu ter in the coronal and sagittal planes. FINDINGS: No persistent filling defects are evident to suggest an acute pulmonary embolism. No mediastinal or hilar adenopathy enlarged by CT criteria is evident. The ascending aorta diameter at the level of the main pulmonary artery is 3.0 cm. The main pulmonary artery diameter at the bifur cation is 2.6 cm. There is a posterior right consolidation at the lung base. This measures approximately 6.9 x 3.8 cm t hey correlate for pneumonia. Underlying mass is not excluded and this should be followed to clearing. Small right pleural effusion appears to be present. IMPRESSIONS: 1. No acute pulmonary embolism. 2. Consolidation costing manager lateral right lung base. Correlate for pneumonia. This should be followed to clearing. Underlying mass is not excluded
--- NOTE | 2021-05-15 17:02 | CT ---
EXAMINATION TYPE: CT abdomen pelvis w con DATE OF EXAM: 05/15/2021 COMPARISON: 11/13/2017, CTA chest same date INDICATION: Patient poor historian. DLP: 1329.7 mGycm, Automated exposure control for dose reduction was used. CONTRAST: 100 mL of Isovue 370. Study performed without Oral Contrast TECHNIQUE: Axial images were obtained from above the diaphragm to the pubic rami in the axial plane a t 5 mm thick sections. Reconstructed images are reviewed on the computer in the coronal plane. FINDINGS: Limited CT sections are obtained the lung bases. Consolidation at the posterior lateral right lung b ase is again evident. This should be followed to clearing. Pneumonia should be considered. Underlying mass is not excluded and follow-up is recommended. Small right pleural effusion is present. Note is made of a nodular density within the major fissure on the right measuring 0.5 cm. Series [address] ABDOMEN: Liver: Normal Spleen: Normal Pancreas: Normal Adrenal glands: The adrenal glands are normal. Gallbladder: Normal Kidneys: No masses are evident. No hydronephrosis is present. No cysts are present. Delayed images were obtained through the kidneys. Note is made of a couple of punctate high density areas within th e upper pole right kidney may represent some tiny nonobstructing renal stones. Aorta: Vascular calcification is within the aorta. Inferior vena cava: Normal. CT PELVIS: Loops of bowel within the abdomen and pelvis are normal. Study is lateral contrast limiting bowel evaluation. Appendix: Surgical clips are present. There may be prior appendectomy. Correlate with surgical histor y. No suspicious dilated tubular structure or inflammatory changes are. Urinary bladder: Normal. Genitourinary structures: Uterus and adnexa appear normal Osseous structures: No suspicious lytic or sclerotic lesions. IMPRESSIONS: 1. Right lower lobe pneumonia or mass. Follow-up to clearing is recommended. 2. 0.5 cm nodule within the major fissure near the lung base. This can be followed. 3. Small right pleural effusion. 4. Nonobstructing punctate right renal stones.
[2021-05-15] MEDS ORDERED: NOREPINEPHRIN 4 MG-0.9% NS PMX 4 MG/250 ML ML IV ONE (17:51)
[2021-05-15 18:00] LABS: Glucose,Whole Blood 380 mg/dL (75-99)
[2021-05-15] MEDS: NOREPINEPHRINE 4 MG in SODIUM CHLORIDE 0.9% 250 ML IV SCH (18:00)
[2021-05-15 18:09] LABS: Appearance,Urine Cloudy (Clear); Bacteria,Urine Rare /hpf; Bilirubin,Urine Negative (Negative); Blood,Urine Trace (Negative); Color,Urine Yellow; Glucose,Urine (UA) 4+ (Negative); Hyaline Casts,Urine 26 /lpf (0-2); Leukocyte Esterase,Urine Negative (Negative); Mucus,Urine Few /hpf; Nitrite,Urine Negative (Negative); PH, Urine 5.5 (5.0-8.0); Protein,Urine 1+ (Negative); RBC,Urine 2 /hpf (0-5); Specific Gravity,Urine 1.043 (1.001-1.035); Squamous Epithelial Cell,Urine 1 /hpf (0-4); Urobilinogen,Urine <2.0 mg/dL (<2.0); WBC,Urine 3 /hpf (0-5)
[2021-05-15 18:15] LABS: Ketones,Urine 2+ (Negative)
[2021-05-15 19:00] LABS: Glucose,Whole Blood 388 mg/dL (75-99)
[2021-05-15 19:56] LABS: Glucose,Whole Blood 354 mg/dL (75-99)
[2021-05-15 21:13] LABS: Glucose,Whole Blood 288 mg/dL (75-99)
[2021-05-15 21:21] LABS: African American GFR (CKD) >90 (>60 ml/min/1.73 sqM); Anion Gap 8 mmol/L; Blood Urea Nitrogen 27 mg/dL (7-17); Carbon Dioxide 10 mmol/L (22-30); Chloride 118 mmol/L (98-107); Glucose 327 mg/dL (74-99); Non-African American GFR(CKD) >90 (>60 ml/min/1.73 sqM); Phosphorus 2.8 mg/dL (2.5-4.5); Sodium 136 mmol/L (137-145)
[2021-05-15 21:28] LABS: Potassium 5.3 mmol/L (3.5-5.1)
[2021-05-15 22:02] LABS: Glucose,Whole Blood 306 mg/dL (75-99)
[2021-05-15] MEDS: D5-0.45% NACL WITH KCL 20MEQ/L 1,000 ML IV SCH (22:10)
--- NOTE | 2021-05-15 22:22 | P.HPIM ---
History of Present Illness H&P Date: 05/15/21 Patient is a 61-year-old female with a history of insulin-dependent diabetes, angina, coronary artery disease, and GERD who presented with intermittent start stabbing chest pain and shortness of breath. In the ER she underwent extensive evaluation. She was found to have pancreatitis, DKA, and hypotension. She was started on IV fluids and made nothing by mouth. She underwent a chest x-ray showed which showed right lower lobe pneumonia and she was subsequently started on Rocephin and Zithromax. Arrangements were made for admission she was started on DKA protocol. Patient seen and examined in the ED. SHe complains fo pain everywhere her bones and her chest (yet gestures to upper abdomen).Pain started 3 weeks ago. Tried edifferent things that did not help and has been getting more frequent. No n/v, no diarrhea, no problem urinating, + SOB, no cough, + stuffy nose, No fevers. Has been laying around a lot at home and has not been very active. No sick contacts. Has been check BS 4 times daily and taking all of her insulin. Unsure why her blood sugars are high. Has been running high for a few days at home. weakness in both legs and numbness in her legs. Sees Dr. Flores once monthly. Pertinent positives and negatives as discussed in HPI, a complete review of systems was performed and all other systems are negative. General: ill appearing, no distress, appears at stated age Derm: warm, dry Head: atraumatic, normocephalic, symmetric Eyes: EOMI, no lid lag, anicteric sclera, pupils equal round reactive to light ENT: Nose and ears atraumatic, no thrush, no pharyngeal erythema Neck: No thyromegaly, no cervical lymphadenopathy, trachea midline, supple Mouth: no lip lesion, mucus membranes dry Cardiovascular: S1S2 reg, no murmur, positive posterior tibial pulse bilateral, no edema, capillary refill less than 2 seconds Lungs: decreased bs bilateral, no ronchi, no rales, no wheeze, no accessory muscle use Abdominal: soft, +tender to palpation LUQ, + guarding, no appreciable organomegaly, normal bowel sounds Ext: no gross muscle atrophy, muscle strength muscle strength 5 out of 5 in all 4 extremities, no contractures Neuro: CN II-XI grossly intact, light touch intact all 4 extremities, finger to nose within normal limits, Psych: Alert, oriented, appropriate affect Severe DKA Dehydration - insulin gtt - Accucheck q1 h - Check A1V -IV fluids - Lytes q4 h - ICU consult Pancreatitis - CT abd/pelvis to confirm - NPO - pain control - IV fluids Elevated d-dimer - aptient has been sediatiary chat CT PE Right lower lobe pneumonia - Rocephin and zithromax - IVF - sputum cultures - needs follow-up till resolution - pulm consult Pseudohyponatremia Hyperkalemia, due to extracellular shift - IVF fluids - treatment of DKA Tobacco abuse 1/2 ppd - tobcco cessation CHronic: HTN HLD CAD s/p CABG Asthma The patient is admitted with an anticipated greater than 2 midnight stay for evaluation of []. Surrogate decision-maker: Daughter in law CODE STATUS:full DVT prophylaxis: lovenox Discussed with: patient, ed physician, nursing Anticipated discharge date: 4-[address]: home A total of 35 minutes was spent on the care of this complex patient more than 50% of the time was spent in counseling and care coordination. Past Medical History Past Medical History: Chest Pain / Angina, Diabetes Mellitus, GERD/Reflux, Myocardial Infarction ([place]) Additional Past Medical History / Comment(s): Pancreatitis Last Myocardial Infarction Date:: 2002 History of Any Multi-Drug Resistant Organisms: None Reported Past Surgical History: Appendectomy Additional Past Surgical History / Comment(s): Open heart in 2002. bilateral carpal tunnel sx Past Anesthesia/Blood Transfusion Reactions: No Reported Reaction Past Psychological History: No Psychological Hx Reported Smoking Status: Current every day smoker Past Alcohol Use History: None Reported Past Drug Use History: None Reported - Past Family History Mother History Unknown: Yes Medications and Allergies Home Medications Medication Instructions Recorded Confirmed Type Aspirin 325 mg PO HS 09/26/14 05/15/21 History Atorvastatin [Lipitor] 80 mg PO HS 09/26/14 05/15/21 History Gabapentin [Neurontin] 100 mg PO HS 09/26/14 05/15/21 History Ipratropium/Albuterol Sulfate 1 puff INHALATION RT-QID PRN 09/26/14 05/15/21 Hi story [Combivent Respimat Inhaler] gemfibroziL [Lopid] 600 mg PO AC-BID 09/26/14 05/15/21 History metFORMIN HCL [Metformin HCl ER] 500 mg PO DAILY 09/26/14 05/15/21 History atenoloL [Tenormin] 25 mg PO DAILY #0 tab 01/29/16 05/15/21 Rx Enalapril Maleate 10 mg PO DAILY 05/15/21 05/15/21 History Escitalopram [Lexapro] 10 mg PO DAILY 05/15/21 05/15/21 History Insulin Aspart [NovoLOG] 20 units SQ AC-TID 05/15/21 05/15/21 History Insulin Detemir [Levemir Flextouch 80 units SQ HS 05/15/21 05/15/21 History Pen] Isosorbide Mononitrate ER [Imdur] 30 mg PO DAILY 05/15/21 05/15/21 History Ondansetron Odt [Zofran Odt] 4 mg PO Q12HR PRN 05/15/21 05/15/21 History Allergies Allergy/AdvReac Type Severity Reaction Status Date / Time No Known Allergies Allergy Verified 05/15/21 12:23 Physical Exam Osteopathic Statement: *. No significant issues noted on an osteopathic structural exam other than those noted in the History and Physical/Consult. Vitals: Vital Signs Temp Pulse Resp BP Pulse Ox 05/15/21 15:44 77 18 86/44 98 05/15/21 15:11 76 18 84/41 05/15/21 14:21 75 18 90/42 98 05/15/21 14:16 74 18 76/46 99 05/15/21 13:40 73 18 75/46 98 05/15/21 11:15 97.8 F 71 18 85/48 100 Intake and Output 05/15/21 05/15/21 05/15/21 06:59 14:59 22:59 Other: Weight 63.503 kg Results CBC & Chem 7: 05/15/21 11:27 05/15/21 20:54 Labs: Abnormal Lab Results - Last 24 Hours (Table) 05/15/21 05/15/21 05/15/21 Range/Units 11:27 11: 11: WBC 16.5 H (3.8-10.6) k/uL MCV 102.2 H (80.0-100.0) fL Neutrophils # 12.7 H (1.3-7.7) k/uL D-Dimer 0.97 H (<0.60) mg/L FEU VBG pH (7.31-7.41) VBG pCO2 (37-51) mmHg VBG HCO3 (24-28) mmol/L Sodium 127 L (137-145) mmol/L Potassium 5.5 H (3.5-5.1) mmol/L Carbon Dioxide 7 L* (22-30) mmol/L BUN 26 H (7-17) mg/dL Glucose 620 H* (74-99) mg/dL POC Glucose (mg/dL) (75-99) mg/dL Lipase 1951 H (23-300) U/L 05/15/21 05/15/21 Range/Units 13:40 14:51 WBC (3.8-10.6) k/uL MCV (80.0-100.0) fL Neutrophils # (1.3-7.7) k/uL D-Dimer (<0.60) mg/L FEU VBG pH 7.12 L* (7.31-7.41) VBG pCO2 23 L (37-51) mmHg VBG HCO3 7 L* (24-28) mmol/L Sodium (137-145) mmol/L Potassium (3.5-5.1) mmol/L Carbon Dioxide (22-30) mmol/L BUN (7-17) mg/dL Glucose (74-99) mg/dL POC Glucose (mg/dL) >600 H (75-99) mg/dL Lipase (23-300) U/L
[2021-05-15 22:56] LABS: Glucose,Whole Blood 265 mg/dL (75-99)
[2021-05-16 00:06] LABS: Glucose,Whole Blood 263 mg/dL (75-99)
[2021-05-16 00:50] LABS: African American GFR (CKD) >90 (>60 ml/min/1.73 sqM); Anion Gap 5 mmol/L; Blood Urea Nitrogen 20 mg/dL (7-17); Carbon Dioxide 15 mmol/L (22-30); Chloride 113 mmol/L (98-107); Glucose 273 mg/dL (74-99); Non-African American GFR(CKD) >90 (>60 ml/min/1.73 sqM); Potassium 3.4 mmol/L (3.5-5.1); Sodium 133 mmol/L (137-145)
[2021-05-16 01:03] LABS: Glucose,Whole Blood 247 mg/dL (75-99)
[2021-05-16 02:01] LABS: Glucose,Whole Blood 235 mg/dL (75-99)
[2021-05-16] MEDS: INSULIN REGULAR 100 UNIT in SODIUM CHLORIDE 0.9% 100 ML IV SCH (02:02)
[2021-05-16 03:04] LABS: Glucose,Whole Blood 235 mg/dL (75-99)
[2021-05-16 03:57] LABS: Glucose,Whole Blood 228 mg/dL (75-99)
[2021-05-16] MEDS: D5-0.45% NACL WITH KCL 20MEQ/L 1,000 ML IV SCH (03:59)
[2021-05-16 05:12] LABS: Glucose,Whole Blood 224 mg/dL (75-99)
[2021-05-16 05:41] LABS: HCT 36.3 % (34.0-46.0); HGB 12.3 gm/dL (11.4-16.0); MCH 32.1 pg (25.0-35.0); Mean Platelet Volume 8.4; Platelet Count 169 k/uL (150-450); RBC 3.83 m/uL (3.80-5.40); RDW 13.1 % (11.5-15.5); WBC 9.2 k/uL (3.8-10.6)
[2021-05-16 05:48] LABS: MCV 94.6 fL (80.0-100.0)
[2021-05-16 05:59] LABS: African American GFR (CKD) >90 (>60 ml/min/1.73 sqM); Anion Gap 5 mmol/L; Blood Urea Nitrogen 14 mg/dL (7-17); Calcium 7.7 mg/dL (8.4-10.2); Carbon Dioxide 16 mmol/L (22-30); Chloride 113 mmol/L (98-107); Glucose 234 mg/dL (74-99); Non-African American GFR(CKD) >90 (>60 ml/min/1.73 sqM); Potassium 3.2 mmol/L (3.5-5.1); Sodium 134 mmol/L (137-145)
[2021-05-16 06:13] LABS: Glucose,Whole Blood 212 mg/dL (75-99)
[2021-05-16] MEDS: POTASSIUM CHLORIDE 10 MEQ in WATER FOR INJECTION 1 100ML.BAG IVPB SCH ×4 (06:15→12:47)
[2021-05-16 06:59] LABS: Glucose,Whole Blood 214 mg/dL (75-99)
[2021-05-16] MEDS ORDERED: cefTRIAXone IN SWFI 1,000 MG/10 ML SYRINGE IVP SCH (09:00)
[2021-05-16] MEDS ORDERED: INSULIN DETEMIR (LEVEMIR) 100 UNIT/ML SYR SQ SCH ×4 (09:00→21:00)
[2021-05-16] MEDS: ISOSORBIDE MONONITRATE ER 30 MG TAB.ER.24H PO SCH (09:46)
[2021-05-16] MEDS: LACTATED RINGERS 1,000 ML IV SCH ×2 (09:46→22:30)
[2021-05-16] MEDS: ESCITALOPRAM 10 MG TAB PO SCH (09:47)
[2021-05-16] MEDS: FENOFIBRATE 160 MG TAB PO SCH (09:47)
[2021-05-16] MEDS: AZITHROMYCIN 500 MG TAB PO SCH (09:50)
--- NOTE | 2021-05-16 10:50 | P.CNPUL ---
History of Present Illness Consult date: 05/16/21 Requesting physician: Yvette Pereira Reason for consult: pneumonia, other Chief complaint: DKA History of present illness: Pulmonary/critical care consultation dated 05/16/2021. 61-year-old female, who was seen in the emergency room yesterday by Dr. Robinson Hopkins. The patient presented with a number of complaints, and was found to be in diabetic ketoacidosis, had a low blood pressure, and had pneumonia, as well as pancreatitis. The patient apparently told Dr. Hopkins that she was having sharp chest pain. In addition, she apparently had shortness of breath on exertion. Her blood pressure in the emergency department was 71/60. She received some saline fluid. Also, she not been eating particularly well. I was called by him, and the patient was a good candidate for the intensive care unit. The patient was given fluid administration, vasopressors, insulin, and other medications. In addition, the patient received some antibiotics in the form of Rocephin, and azithromycin. Currently, the patient's on 2 L nasal cannula. The patient is no longer on norepinephrine. The patient's getting D5.45 with 20 mg a potassium at 50 mL an hour. Insulin drip is running at 8.4 units an hour. The chest x-ray shows a patchy infiltrate in the right lower lobe. The patient is not a particularly good historian at this time. White count 9.2, hemoglobin 12.3, hematocrit 36.3, platelet count 169,000. D-dimer was 0.97. A venous blood gas showed a pH is 7.12. Sodium 134, potassium 3.2, chlorides 113, CO2 16, anion gap 5, BUN 14, creatinine 0.41, and most recent glucose 214. Phosphorus is 1.7. Urine is cloudy. Leukocyte esterase and nitrite were both negative. Testing for felix virus was negative. Chest x-ray shows a patchy infiltrate right lower lobe, which is better seen on the computed tomography scan. The computed tomography scan was negative for pulmonary embolism. Review of Systems REVIEW OF SYSTEMS: CONSTITUTIONAL: Weakness. NEUROLOGIC: [ Negative.] HEENT: [ Negative.] CARDIAC: Chest pain. PULMONARY: Shortness of breath. GI: Abdominal discomfort. : [Negative.] RHEUMATOLOGIC: [ Negative.] IMMUNOLOGIC: [ Negative.] ENDOCRINE: [Negative. ] DERMATOLOGIC: [Negative.] Past Medical History Past Medical History: Chest Pain / Angina, Diabetes Mellitus, GERD/Reflux, Myocardial Infarction ([place]) Additional Past Medical History / Comment(s): Pancreatitis Last Myocardial Infarction Date:: 2002 History of Any Multi-Drug Resistant Organisms: None Reported Past Surgical History: Appendectomy Additional Past Surgical History / Comment(s): Open heart in 2002. bilateral carpal tunnel sx Past Anesthesia/Blood Transfusion Reactions: No Reported Reaction Past Psychological History: No Psychological Hx Reported Smoking Status: Current every day smoker Past Alcohol Use History: None Reported Past Drug Use History: None Reported - Past Family History Mother History Unknown: Yes Medications and Allergies Home Medications Medication Instructions Recorded Confirmed Type Aspirin 325 mg PO HS 09/26/14 05/15/21 History Atorvastatin [Lipitor] 80 mg PO HS 09/26/14 05/15/21 History Gabapentin [Neurontin] 100 mg PO HS 09/26/14 05/15/21 History Ipratropium/Albuterol Sulfate 1 puff INHALATION RT-QID PRN 09/26/14 05/15/21 History [Combivent Respimat Inhaler] gemfibroziL [Lopid] 600 mg PO AC-BID 09/26/14 05/15/21 History metFORMIN HCL [Metformin HCl ER] 500 mg PO DAILY 09/26/14 05/15/21 History atenoloL [Tenormin] 25 mg PO DAILY #0 tab 01/29/16 05/15/21 Rx Enalapril Maleate 10 mg PO DAILY 05/15/21 05/15/21 History Escitalopram [Lexapro] 10 mg PO DAILY 05/15/21 05/15/21 History Insulin Aspart [NovoLOG] 20 units SQ AC-TID 05/15/21 05/15/21 History Insulin Detemir [Levemir Flextouch 80 units SQ HS 05/15/21 05/15/21 History Pen] Isosorbide Mononitrate ER [Imdur] 30 mg PO DAILY 05/15/21 05/15/21 History Ondansetron Odt [Zofran Odt] 4 mg PO Q12HR PRN 05/15/21 05/15/21 History Allergies Allergy/AdvReac Type Severity Reaction Status Date / Time No Known Allergies Allergy Verified 05/15/21 12:23 Physical Exam Osteopathic Statement: *. No significant issues noted on an osteopathic structural exam other than those noted in the History and Physical/Consult. Vitals: Vital Signs Temp Pulse Resp BP Pulse Ox 05/16/21 10:00 82 20 105/60 05/16/21 09:30 82 25 H 116/61 95 05/16/21 09:00 80 35 H 106/60 05/16/21 08:30 82 39 H 109/47 95 05/16/21 08:00 80 20 115/57 98 05/16/21 07:30 80 14 111/60 05/16/21 07:00 78 30 H 105/56 93 L 05/16/21 06:30 76 28 H 107/59 94 L 05/16/21 06:00 83 24 113/58 94 L 05/16/21 05:30 83 28 H 103/49 92 L 05/16/21 05:00 79 26 H 105/53 05/16/21 04:30 80 24 103/51 94 L 05/16/21 04:00 98.8 F 80 32 H 104/50 94 L 05/16/21 03:30 78 36 H 103/51 05/16/21 03:00 79 37 H 106/53 05/16/21 02:30 79 35 H 96/48 05/16/21 02:00 69 30 H 101/55 05/16/21 01:30 75 28 H 97/52 05/16/21 01:00 79 35 H 106/57 92 L 05/16/21 00:30 73 25 H 114/53 05/16/21 00:00 98.2 F 78 22 93/50 93 L 05/15/21 23:30 72 24 109/50 05/15/21 23:00 75 33 H 112/52 05/15/21 22:30 71 24 116/56 05/15/21 22:00 67 24 109/43 94 L 05/15/21 21:30 77 28 H 103/55 95 05/15/21 21:00 70 20 111/54 94 L 05/15/21 20:30 82 22 105/52 95 05/15/21 20:00 97.9 F 70 20 89/44 94 L 05/15/21 19:29 94 L 05/15/21 19:00 70 17 83/36 94 L 05/15/21 18:45 53 L 14 86/39 94 L 05/15/21 18:30 71 19 90/43 93 L 05/15/21 18:15 71 16 75/38 90 L 05/15/21 18:00 71 18 68/37 91 L 05/15/21 17:50 62 23 68/37 92 L 05/15/21 17:40 72 14 83/40 94 L 05/15/21 17:35 70 19 75/41 95 05/15/21 16:56 77 18 82/44 99 05/15/21 16:26 78 18 81/48 98 05/15/21 15:44 77 18 86/44 98 05/15/21 15:11 76 18 84/41 05/15/21 14:21 75 18 90/42 98 05/15/21 14:16 74 18 76/46 99 05/15/21 13:40 73 18 75/46 98 05/15/21 11:15 97.8 F 71 18 85/48 100 Intake and Output 05/15/21 05/16/21 05/16/21 22:59 06:59 14:59 Intake Total 1510.147 7174.991 625 Output Total 900 1025 575 Balance 815.975 721.991 50 Intake: IV 550 1710 550 Azithromycin 500 mg In 250 Sodium Chloride 0.9% 250 ml @ 250 mls/hr IVPB ONCE STA Rx#:[id number] D5-0.45% NaCl with KCl 150 1200 300 20Meq/l 1,000 ml @ 150 mls/hr IV .[id number] [facility] Rx# :[id number] Potassium Chloride 10 meq 100 200 In Water For Injection 1 100ml.bag @ 100 mls/hr IVPB Q1HR [facility] Rx#: [id number] Sodium Chloride 0.9% 1, 400 160 50 000 ml @ 200 mls/hr IV . Q5H [facility] Rx#:[id number] Intake, IV Titration 1165.975 36.991 75 Amount Insulin Regular 100 unit 48.105 29.612 In Sodium Chloride 0.9% 100 ml @ 0.1 UNITS/KG/HR 6.414 mls/hr IV .[id number] [facility] Rx#:[id number] Lactated Ringers 1,000 ml 75 @ 75 mls/hr IV .[id number] [facility] Rx#:[id number] Norepinephrine 4 mg In 117.870 7.379 Sodium Chloride 0.9% 250 ml @ 0.05 MCG/KG/MIN 12. 097 mls/hr IV .Q21H [facility] Rx#:[id number] Sodium Chloride 0.9% 1, 1000 000 ml @ 999 mls/hr IV . Q1H1M [facility] Rx#:[id number] Output: Urine 900 1025 575 Other: Voiding Method Indwelling Catheter Indwelling Catheter Indwelling Catheter Weight 63.503 kg 68 kg No acute distress, oriented 3. 2 L saturation is 98%. HEENT examination is grossly unremarkable. Neck supple. Full range of motion. No adenopathy thyromegaly or neck vein distention. Cardiovascular examination reveals regular rhythm rate. S1-S2 normal. No S3 or S4. No discernible murmur noted. Heart rate 82 bpm. Lungs reveal clear breath sounds. Breath sounds are equal bilaterally. No adventitious lung sounds including wheezes rhonchi or crackles. Abdomen soft bowel sounds are heard. No masses or tenderness. Extremities are intact. No cyanosis clubbing or edema. Skin is without rash or lesion. Neurologic examination is brief but nonfocal. Results - Laboratory Findings CBC and BMP: 05/16/21 05:13 05/16/21 05:13 PT/INR, D-dimer PT 11.6 sec (9.0-12.0) 05/15/21 11:27 INR 1.1 (<1.2) 05/15/21 11:27 D-Dimer 0.97 mg/L FEU (<0.60) H 05/15/21 11:27 Abnormal lab findings: Abnormal Labs 05/15/21 05/15/21 05/15/21 11:27 11:27 11:27 WBC 16.5 H MCV 102.2 H Neutrophils # 12.7 H D-Dimer 0.97 H VBG pH VBG pCO2 VBG HCO3 Sodium 127 L Potassium 5.5 H Chloride Carbon Dioxide 7 L* BUN 26 H Creatinine Glucose 620 H* POC Glucose (mg/dL) Calcium Phosphorus Lipase 1951 H Urine Appearance Ur Specific [place] Urine Protein Urine Glucose (UA) Urine Ketones Urine Blood Urine Bacteria Hyaline Casts Urine Mucus 05/15/21 05/15/21 05/15/21 13:40 14:51 15:51 WBC MCV Neutrophils # D-Dimer VBG pH 7.12 L* VBG pCO2 23 L VBG HCO3 7 L* Sodium Potassium Chloride Carbon Dioxide BUN Creatinine Glucose POC Glucose (mg/dL) >600 H 505 H Calcium Phosphorus Lipase Urine Appearance Ur Specific [place] Urine Protein Urine Glucose (UA) Urine Ketones Urine Blood Urine Bacteria Hyaline Casts Urine Mucus 05/15/21 05/15/21 05/15/21 15:56 16:53 17:58 WBC MCV Neutrophils # D-Dimer VBG pH VBG pCO2 VBG HCO3 Sodium 132 L Potassium Chloride 108 H Carbon Dioxide 8 L* BUN 29 H Creatinine Glucose 495 H POC Glucose (mg/dL) 491 H 380 H Calcium Phosphorus Lipase Urine Appearance Ur Specific [place] Urine Protein Urine Glucose (UA) Urine Ketones Urine Blood Urine Bacteria Hyaline Casts Urine Mucus 05/15/21 05/15/21 05/15/21 18:00 18:59 19:55 WBC MCV Neutrophils # D-Dimer VBG pH VBG pCO2 VBG HCO3 Sodium Potassium Chloride Carbon Dioxide BUN Creatinine Glucose POC Glucose (mg/dL) 388 H 354 H Calcium Phosphorus Lipase Urine Appearance Cloudy H Ur Specific [place] 1.043 H Urine Protein 1+ H Urine Glucose (UA) 4+ H Urine Ketones 2+ H Urine Blood Trace H Urine Bacteria Rare H Hyaline Casts 26 H Urine Mucus Few H 05/15/21 05/15/21 05/15/21 20:54 21:12 22:01 WBC MCV Neutrophils # D-Dimer VBG pH VBG pCO2 VBG HCO3 Sodium 136 L Potassium 5.3 H Chloride 118 H Carbon Dioxide 10 L BUN 27 H Creatinine Glucose 327 H POC Glucose (mg/dL) 288 H 306 H Calcium Phosphorus Lipase Urine Appearance Ur Specific [place] Urine Protein Urine Glucose (UA) Urine Ketones Urine Blood Urine Bacteria Hyaline Casts Urine Mucus 05/15/21 05/16/21 05/16/21 22:55 00:05 00:19 WBC MCV Neutrophils # D-Dimer VBG pH VBG pCO2 VBG HCO3 Sodium Potassium Chloride Carbon Dioxide BUN Creatinine Glucose POC Glucose (mg/dL) 265 H 263 H Calcium Phosphorus 1.7 L Lipase Urine Appearance Ur Specific [place] Urine Protein Urine Glucose (UA) Urine Ketones Urine Blood Urine Bacteria Hyaline Casts Urine Mucus 05/16/21 05/16/21 05/16/21 00:19 01:01 02:00 WBC MCV Neutrophils # D-Dimer VBG pH VBG pCO2 VBG HCO3 Sodium 133 L Potassium 3.4 L Chloride 113 H Carbon Dioxide 15 L BUN 20 H Creatinine Glucose 273 H POC Glucose (mg/dL) 247 H 235 H Calcium Phosphorus Lipase Urine Appearance Ur Specific [place] Urine Protein Urine Glucose (UA) Urine Ketones Urine Blood Urine Bacteria Hyaline Casts Urine Mucus 05/16/21 05/16/21 05/16/21 03:03 03:55 05:10 WBC MCV Neutrophils # D-Dimer VBG pH VBG pCO2 VBG HCO3 Sodium Potassium Chloride Carbon Dioxide BUN Creatinine Glucose POC Glucose (mg/dL) 235 H 228 H 224 H Calcium Phosphorus Lipase Urine Appearance Ur Specific [place] Urine Protein Urine Glucose (UA) Urine Ketones Urine Blood Urine Bacteria Hyaline Casts Urine Mucus 05/16/21 05/16/21 05/16/21 05:13 06:11 06:58 WBC MCV Neutrophils # D-Dimer VBG pH VBG pCO2 VBG HCO3 Sodium 134 L Potassium 3.2 L Chloride 113 H Carbon Dioxide 16 L BUN Creatinine 0.41 L Glucose 234 H POC Glucose (mg/dL) 212 H 214 H Calcium 7.7 L Phosphorus Lipase Urine Appearance Ur Specific [place] Urine Protein Urine Glucose (UA) Urine Ketones Urine Blood Urine Bacteria Hyaline Casts Urine Mucus - Diagnostic Findings Chest x-ray: image reviewed CT scan - chest: image reviewed Assessment and Plan Assessment: Acute diabetic ketoacidosis. Acute right lower lobe pneumonia. Hypotension, likely multifactorial, and related to underlying hypovolemia/dehyd ration, as well as possible sepsis. History of pancreatitis. History of hyperlipidemia. History of angina pectoris. Prior history of myocardial infarction. History of gastroesophageal reflux disease. Status post open heart surgery, 2002. Ongoing tobacco use/nicotine addiction. Plan: Plan dated 05/16/2021. The patient is given azithromycin and ceftriaxone for pneumonia, right lower lobe. The patient's on 2 L nasal cannula. Her respiratory status is stable. Computed tomography scan did not reveal pulmonary embolism but did show a pneumonic infiltrate in the right lower lobe. It was also seen on chest x-ray. Additional recommendations and suggestions are forthcoming. Prognosis is guarded. We'll continue to follow make recommendations where appropriate. The patient is possibly a candidate to move out of the ICU, later today. Time with Patient: Greater than 30
[2021-05-16 11:27] LABS: Glucose,Whole Blood 80 mg/dL (75-99)
[2021-05-16 12:21] LABS: African American GFR (CKD) >90 (>60 ml/min/1.73 sqM); Anion Gap 6 mmol/L; Blood Urea Nitrogen 8 mg/dL (7-17); Calcium 8.3 mg/dL (8.4-10.2); Carbon Dioxide 19 mmol/L (22-30); Chloride 110 mmol/L (98-107); Glucose 77 mg/dL (74-99); Non-African American GFR(CKD) >90 (>60 ml/min/1.73 sqM); Potassium 3.5 mmol/L (3.5-5.1); Sodium 135 mmol/L (137-145)
[2021-05-16] MEDS: INSULIN ASPART (NovoLOG) 100 UNIT/ML VIAL SQ SCH ×3 (12:47→20:19)
[2021-05-16 13:21] VITALS: BMI 30.2
[2021-05-16] MEDS: NOREPINEPHRINE 4 MG in SODIUM CHLORIDE 0.9% 250 ML IV SCH (16:15)
[2021-05-16 17:33] LABS: Glucose,Whole Blood 220 mg/dL (75-99)
[2021-05-16 20:15] LABS: Glucose,Whole Blood 338 mg/dL (75-99)
--- NOTE | 2021-05-16 20:47 | P.PN ---
Subjective Progress Note Date: 05/16/21 (delayed charting seen at 1530) Patient is a 61-year-old female with a history of insulin-dependent diabetes, angina, coronary artery disease, and GERD who presented with intermittent start stabbing chest pain and shortness of breath. In the ER she underwent extensive evaluation. She was found to have pancreatitis, DKA, and hypotension. She was started on IV fluids and made nothing by mouth. She underwent a chest x-ray showed which showed right lower lobe pneumonia and she was subsequently started on Rocephin and Zithromax. Arrangements were made for admission she was started on DKA protocol. She had elevated d-dimer and computed tomography scan of the chest which is negative for PE but did redemonstrated right-sided pneumonia. Her DKA resolved and she was transitioned to sliding scale insulin and fixed dose Levemir. She was seen by pulmonary who agreed with continuing antibiotics. 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 Patient seen and examined at bedside. She reports that her pain all over is better, her nausea has resolved. She is feeling very tired but better than yesterday. She reports that she is having issues obtaining her insulin pump supplies, when I state that she has not had her insulin pump supplies filled quite some time she becomes defensive. We discussed that we'll send her home on injectable insulin. I highly suspect that she is not following up appropriately. General: non toxic, no distress, appears older than stated age Derm: warm, dry Head: atraumatic, normocephalic, symmetric Eyes: EOMI, no lid lag, anicteric sclera Mouth: no lip lesion, mucus membranes moist Cardiovascular: S1S2 reg, no murmur, positive posterior tibial pulse bilateral, Lungs: Decreased breath sounds bilateral, no rhonchi, no rales , no accessory muscle use Abdominal: soft, nontender to palpation, no guarding, no appreciable organomegaly Ext: no gross muscle atrophy, no edema, no contractures Neuro: CN II-XI grossly intact, no focal neuro deficits Psych: Alert, oriented, appropriate affect Severe DKA Dehydration - insulin gtt discontinued and transitioned to sc insulin - Accucheck - A1C 14 - CM called PCP patient has been missing appointment and is supposed to follow wtih their chronic disease CM and does not. Pancreatitis - CT abd/pelvis to confirm without signs of inflammation but meets 2/3 diagnositic criteria - pain control - regular diet ordered by CC - IVF Right lower lobe pneumonia with probable hypotension - Rocephin and zithromax - IVF - sputum culture if able - needs follow-up till resolution - pulm recs apprecaited Tobacco abuse 1/2 ppd - tobcco cessation Pseudohyponatremia, resolved Hyperkalemia, due to extracellular shift, resolved CHronic: HTN HLD CAD s/p CABG Asthma DVT prophylaxis: lovenox Discussed with: patient nursing Anticipated discharge date: 1-[address]: home A total of 37 minutes was spent on the care of this complex patient more than 50% of the time was spent in counseling and care coordination. Objective - Vital Signs Vital signs: Vital Signs Temp 98.6 F 05/16/21 20:00 Pulse 98 05/16/21 20:00 Resp 14 05/16/21 20:00 BP 105/63 05/16/21 20:00 Pulse Ox 92 L 05/16/21 20:00 Intake & Output 05/16/21 05/16/21 05/17/21 06:59 18:59 06:59 Intake Total 3450.264 1755 150 Output Total 1925 1975 350 Balance 1525.264 -220 -200 Weight 68 kg 68 kg Intake: IV 2260 720 Azithromycin 500 mg In 250 Sodium Chloride 0.9% 250 ml @ 250 mls/hr IVPB ONCE [facility] Rx#:[id number] D5-0.45% NaCl with KCl 1350 300 20Meq/l 1,000 ml @ 150 mls/hr IV .Q6H40M [facility] Rx# :[id number] Potassium Chloride 10 meq 100 300 In Water For Injection 1 100ml.bag @ 100 mls/hr IVPB Q1HR [facility] Rx#: [id number] Sodium Chloride 0.9% 1, 560 120 000 ml @ 200 mls/hr IV . Q5H [facility] Rx#:[id number] Intake, IV Titration 1190.264 675 150 Amount Insulin Regular 100 unit 77.717 In Sodium Chloride 0.9% 100 ml @ 0.1 UNITS/KG/HR 6.414 mls/hr IV .[id number] [facility] Rx#:[id number] Lactated Ringers 1,000 ml 675 150 @ 75 mls/hr IV .[id number] [facility] Rx#:[id number] Norepinephrine 4 mg In 112.547 Sodium Chloride 0.9% 250 ml @ 0.05 MCG/KG/MIN 12. 097 mls/hr IV .Q21H [facility] Rx#:[id number] Sodium Chloride 0.9% 1, 1000 000 ml @ 999 mls/hr IV . Q1H1M [facility] Rx#:[id number] Oral 360 Output: Urine 1925 1975 350 Other: Voiding Method Indwelling Catheter Indwelling Catheter Bedside Commode - Labs CBC & Chem 7: 05/16/21 05:13 05/16/21 11:32 Labs: Abnormal Lab Results - Last 24 Hours (Table) 05/15/21 05/15/21 05/15/21 Range/Units 20:54 21:12 22:01 Sodium 136 L (137-145) mmol/L Potassium 5.3 H (3.5-5.1) mmol/L Chloride 118 H (98-107) mmol/L Carbon Dioxide 10 L (22-30) mmol/L BUN 27 H (7-17) mg/dL Creatinine (0.52-1.04) mg/dL Glucose 327 H (74-99) mg/dL POC Glucose (mg/dL) 288 H 306 H (75-99) mg/dL Hemoglobin A1c (4.0-6.0) % Calcium (8.4-10.2) mg/dL Phosphorus (2.5-4.5) mg/dL 05/15/21 05/16/21 05/16/21 Range/Units 22:55 00:05 00:19 Sodium (137-145) mmol/L Potassium (3.5-5.1) mmol/L Chloride (98-107) mmol/L Carbon Dioxide (22-30) mmol/L BUN (7-17) mg/dL Creatinine (0.52-1.04) mg/dL Glucose (74-99) mg/dL POC Glucose (mg/dL) 265 H 263 H (75-99) mg/dL Hemoglobin A1c (4.0-6.0) % Calcium (8.4-10.2) mg/dL Phosphorus 1.7 L (2.5-4.5) mg/dL 05/16/21 05/16/21 05/16/21 Range/Units 00:19 01:01 02:00 Sodium 133 L (137-145) mmol/L Potassium 3.4 L (3.5-5.1) mmol/L Chloride 113 H (98-107) mmol/L Carbon Dioxide 15 L (22-30) mmol/L BUN 20 H (7-17) mg/dL Creatinine (0.52-1.04) mg/dL Glucose 273 H (74-99) mg/dL POC Glucose (mg/dL) 247 H 235 H (75-99) mg/dL Hemoglobin A1c (4.0-6.0) % Calcium (8.4-10.2) mg/dL Phosphorus (2.5-4.5) mg/dL 05/16/21 05/16/21 05/16/21 Range/Units 03:03 03:55 05:10 Sodium (137-145) mmol/L Potassium (3.5-5.1) mmol/L Chloride (98-107) mmol/L Carbon Dioxide (22-30) mmol/L BUN (7-17) mg/dL Creatinine (0.52-1.04) mg/dL Glucose (74-99) mg/dL POC Glucose (mg/dL) 235 H 228 H 224 H (75-99) mg/dL Hemoglobin A1c (4.0-6.0) % Calcium (8.4-10.2) mg/dL Phosphorus (2.5-4.5) mg/dL 05/16/21 05/16/21 05/16/21 Range/Units 05:13 05:13 06:11 Sodium 134 L (137-145) mmol/L Potassium 3.2 L (3.5-5.1) mmol/L Chloride 113 H (98-107) mmol/L Carbon Dioxide 16 L (22-30) mmol/L BUN (7-17) mg/dL Creatinine 0.41 L (0.52-1.04) mg/dL Glucose 234 H (74-99) mg/dL POC Glucose (mg/dL) 212 H (75-99) mg/dL Hemoglobin A1c 14.4 H (4.0-6.0) % Calcium 7.7 L (8.4-10.2) mg/dL Phosphorus (2.5-4.5) mg/dL 05/16/21 05/16/21 05/16/21 Range/Units 06:58 11:32 17:31 Sodium 135 L (137-145) mmol/L Potassium (3.5-5.1) mmol/L Chloride 110 H (98-107) mmol/L Carbon Dioxide 19 L (22-30) mmol/L BUN (7-17) mg/dL Creatinine 0.34 L (0.52-1.04) mg/dL Glucose (74-99) mg/dL POC Glucose (mg/dL) 214 H 220 H (75-99) mg/dL Hemoglobin A1c (4.0-6.0) % Calcium 8.3 L (8.4-10.2) mg/dL Phosphorus (2.5-4.5) mg/dL 05/16/21 Range/Units 20:13 Sodium (137-145) mmol/L Potassium (3.5-5.1) mmol/L Chloride (98-107) mmol/L Carbon Dioxide (22-30) mmol/L BUN (7-17) mg/dL Creatinine (0.52-1.04) mg/dL Glucose (74-99) mg/dL POC Glucose (mg/dL) 338 H (75-99) mg/dL Hemoglobin A1c (4.0-6.0) % Calcium (8.4-10.2) mg/dL Phosphorus (2.5-4.5) mg/dL Microbiology - Last 24 Hours (Table) 05/15/21 13:23 Blood Culture - Preliminary Blood No Growth after 24 hours 05/15/21 13:40 Blood Culture - Preliminary Blood No Growth after 24 hours
[2021-05-16] MEDS ORDERED: GABAPENTIN 100 MG CAP PO SCH (21:00)
[2021-05-16] MEDS ORDERED: ATORVASTATIN 80 MG TAB PO SCH (21:00)
[2021-05-16 23:20] LABS: Glucose,Whole Blood 256 mg/dL (75-99)
[2021-05-17 02:05] LABS: Glucose,Whole Blood 171 mg/dL (75-99)
[2021-05-17 06:13] LABS: HCT 37.9 % (34.0-46.0); HGB 13.2 gm/dL (11.4-16.0); MCH 31.7 pg (25.0-35.0); MCHC 34.7 g/dL (31.0-37.0); MCV 91.5 fL (80.0-100.0); Mean Platelet Volume 8.2; Platelet Count 154 k/uL (150-450); RBC 4.15 m/uL (3.80-5.40); RDW 12.7 % (11.5-15.5); WBC 7.8 k/uL (3.8-10.6)
[2021-05-17 06:29] LABS: African American GFR (CKD) >90 (>60 ml/min/1.73 sqM); Anion Gap 6 mmol/L; Blood Urea Nitrogen 3 mg/dL (7-17); Calcium 8.8 mg/dL (8.4-10.2); Carbon Dioxide 27 mmol/L (22-30); Chloride 104 mmol/L (98-107); Glucose 104 mg/dL (74-99); Magnesium 1.7 mg/dL (1.6-2.3); Non-African American GFR(CKD) >90 (>60 ml/min/1.73 sqM); Potassium 2.8 mmol/L (3.5-5.1); Sodium 137 mmol/L (137-145)
[2021-05-17] MEDS: POTASSIUM CHLORIDE ER 20 MEQ TAB.ER PO SCH ×3 (06:44→09:25)
[2021-05-17] MEDS: INSULIN DETEMIR (LEVEMIR) 100 UNIT/ML SYR SQ SCH ×2 (06:44→07:59)
[2021-05-17 06:50] LABS: Glucose,Whole Blood 85 mg/dL (75-99)
[2021-05-17] MEDS: INSULIN ASPART (NovoLOG) 100 UNIT/ML VIAL SQ SCH ×2 (06:50→12:14)
[2021-05-17] MEDS ORDERED: INSULIN DETEMIR (LEVEMIR) 100 UNIT/ML SYR SQ SCH ×2 (07:00→21:00)
[2021-05-17] MEDS: ESCITALOPRAM 10 MG TAB PO SCH (07:59)
[2021-05-17] MEDS: AZITHROMYCIN 500 MG TAB PO SCH (07:59)
[2021-05-17] MEDS: ISOSORBIDE MONONITRATE ER 30 MG TAB.ER.24H PO SCH (07:59)
[2021-05-17] MEDS: FENOFIBRATE 160 MG TAB PO SCH (07:59)
[2021-05-17 10:07] VITALS: BP 127/57; PULSE 96; RESP 41; TEMP 98
--- NOTE | 2021-05-17 10:38 | P.PN ---
Subjective Progress Note Date: 05/17/21 Principal diagnosis: Diabetic ketoacidosis, pneumonia. Pulmonary/critical care consultation dated 05/16/2021. 61-year-old female, who was seen in the emergency room yesterday by Dr. Robinson Hopkins. The patient presented with a number of complaints, and was found to be in diabetic ketoacidosis, had a low blood pressure, and had pneumonia, as well as pancreatitis. The patient apparently told Dr. Hopkins that she was having sharp chest pain. In addition, she apparently had shortness of breath on exertion. Her blood pressure in the emergency department was 71/60. She received some saline fluid. Also, she not been eating particularly well. I was called by him, and the patient was a good candidate for the intensive care unit. The patient was given fluid administration, vasopressors, insulin, and other medications. In addition, the patient received some antibiotics in the form of Rocephin, and azithromycin. Currently, the patient's on 2 L nasal cannula. The patient is no longer on norepinephrine. The patient's getting D5.45 with 20 mg a potassium at 50 mL an hour. Insulin drip is running at 8.4 units an hour. The chest x-ray shows a patchy infiltrate in the right lower lobe. The patient is not a particularly good historian at this time. White count 9.2, hemoglobin 12.3, hematocrit 36.3, platelet count 169,000. D-dimer was 0.97. A venous blood gas showed a pH is 7.12. Sodium 134, potassium 3.2, chlorides 113, CO2 16, anion gap 5, BUN 14, creatinine 0.41, and most recent glucose 214. Phosphorus is 1.7. Urine is cloudy. Leukocyte esterase and nitrite were both negative. Testing for felix virus was negative. Chest x-ray shows a patchy infiltrate right lower lobe, which is better seen on the computed tomography scan. The computed tomography scan was negative for pulmonary embolism. Progress note dated 05/17/2021. 61-year-old female seen in the emergency room initially, who presented with complaints of shortness of breath, low blood pressure, pneumonia, and diabetic ketoacidosis. She came in complaining of sharp chest pain, but currently is doing much better. She's currently on room air. Her lactated Ringer's is running at 75 mL an hour. She is no longer on an insulin drip. She has been getting antibiotics for possible right lower lobe pneumonia. Labs include a white count 7.8, hemoglobin 13.2, hematocrit 37.9, and platelet count 154,000. Sodium 137, potassium 2.8, chlorides 104, CO2 27, anion gap 6, BUN 3, creatinine 0.28. Chest x-ray and CAT scan dated May 15, have been reviewed. Objective - Vital Signs Vital signs: Vital Signs Temp 98.0 F 05/17/21 08:00 Pulse 96 05/17/21 10:00 Resp 41 H 05/17/21 10:00 BP 127/57 05/17/21 10:00 Pulse Ox 92 L 05/17/21 08:00 Intake & Output 05/16/21 05/17/21 05/17/21 18:59 06:59 18:59 Intake Total 1755 750 460 Output Total 1974 1025 Balance -220 -275 460 Weight 68 kg 68.2 kg Intake: IV 720 D5-0.45% NaCl with KCl 300 20Meq/l 1,000 ml @ 150 mls/hr IV .Q6H40M [facility] Rx# :[id number] Potassium Chloride 10 meq 300 In Water For Injection 1 100ml.bag @ 100 mls/hr IVPB Q1HR [facility] Rx#: [id number] Sodium Chloride 0.9% 1, 120 000 ml @ 200 mls/hr IV . Q5H [facility] Rx#:[id number] Intake, IV Titration 675 750 100 Amount Lactated Ringers 1,000 ml 675 750 100 @ 75 mls/hr IV .[id number] [facility] Rx#:[id number] Oral 360 360 Output: Urine 19745 Other: Voiding Method Indwelling Catheter Bedside Commode Bedside Commode # Voids 1 1 - Exam No acute distress, oriented 3. Room air saturation is 92-94%. HEENT examination is grossly unremarkable. Neck supple. Full range of motion. No adenopathy thyromegaly or neck vein distention. Cardiovascular examination reveals regular rhythm rate. S1-S2 normal. No S3 or S4. No discernible murmur noted. Heart rate 96 bpm. Lungs reveal minimal rhonchi throughout. No wheezes or crackles. Breath sounds equal bilaterally. Abdomen soft bowel sounds are heard. No masses or tenderness. Extremities are intact. No cyanosis clubbing or edema. Skin is without rash or lesion. Neurologic examination is brief but nonfocal. - Labs CBC & Chem 7: 05/17/21 05:36 05/17/21 05:36 Labs: Abnormal Lab Results - Last 24 Hours (Table) 05/16/21 05/16/21 05/16/21 Range/Units 05:13 11:32 17:31 Sodium 135 L (137-145) mmol/L Potassium (3.5-5.1) mmol/L Chloride 110 H (98-107) mmol/L Carbon Dioxide 19 L (22-30) mmol/L BUN (7-17) mg/dL Creatinine 0.34 L (0.52-1.04) mg/dL Glucose (74-99) mg/dL POC Glucose (mg/dL) 220 H (75-99) mg/dL Hemoglobin A1c 14.4 H (4.0-6.0) % Calcium 8.3 L (8.4-10.2) mg/dL 05/16/21 05/16/21 05/17/21 Range/Units 20:13 23:17 02:04 Sodium (137-145) mmol/L Potassium (3.5-5.1) mmol/L Chloride (98-107) mmol/L Carbon Dioxide (22-30) mmol/L BUN (7-17) mg/dL Creatinine (0.52-1.04) mg/dL Glucose (74-99) mg/dL POC Glucose (mg/dL) 338 H 256 H 171 H (75-99) mg/dL Hemoglobin A1c (4.0-6.0) % Calcium (8.4-10.2) mg/dL 05/17/21 Range/Units 05:36 Sodium (137-145) mmol/L Potassium 2.8 L (3.5-5.1) mmol/L Chloride (98-107) mmol/L Carbon Dioxide (22-30) mmol/L BUN 3 L (7-17) mg/dL Creatinine 0.28 L (0.52-1.04) mg/dL Glucose 104 H (74-99) mg/dL POC Glucose (mg/dL) (75-99) mg/dL Hemoglobin A1c (4.0-6.0) % Calcium (8.4-10.2) mg/dL Microbiology - Last 24 Hours (Table) 05/15/21 13:23 Blood Culture - Preliminary Blood No Growth after 24 hours 05/15/21 13:40 Blood Culture - Preliminary Blood No Growth after 24 hours Assessment and Plan Assessment: Acute diabetic ketoacidosis, resolved. Acute right lower lobe pneumonia. Hypotension, likely multifactorial, and related to underlying hypovolemia/dehydration, as well as possible sepsis. History of pancreatitis. History of hyperlipidemia. History of angina pectoris. Prior history of myocardial infarction. History of gastroesophageal reflux disease. Status post open heart surgery, 2002. Ongoing tobacco use/nicotine addiction. Plan: Plan dated 05/16/2021. The patient is given azithromycin and ceftriaxone for pneumonia, right lower lobe. The patient's on 2 L nasal cannula. Her respiratory status is stable. Computed tomography scan did not reveal pulmonary embolism but did show a pneumonic infiltrate in the right lower lobe. It was also seen on chest x-ray. Additional recommendations and suggestions are forthcoming. Prognosis is gu arded. We'll continue to follow make recommendations where appropriate. The patient is possibly a candidate to move out of the ICU, later today. Plan dated 05/17/2021. Currently, the patient's doing much better. The patient has been weaned off the insulin drip. Blood sugars, bicarbonate concentration, and anion gap are much more normal. Patient remains on antibiotics. Additional recommendations and suggestions are forthcoming. The patient could be discharged from the ICU. Currently, the patient's on lactated Ringer's at 75 mL an hour, and currently, she is not receiving any supplemental oxygen. She remains on azithromycin and ceftriaxone for being acquired pneumonia. Time with Patient: Less than 30
[2021-05-17 11:25] LABS: Glucose,Whole Blood 236 mg/dL (75-99)
--- NOTE | 2021-05-17 22:05 | P.DS ---
Providers Date of admission: 05/15/21 15:35 Expected date of discharge: 05/17/21 Attending physician: Yvette Pereira DO Consults: 05/15/21 15:35 Consult Physician Stat Consulting Provider: Robinson Capps Reason/Comments: Intensive care management Do you want consulting provider notified?: Already Contacted Primary care physician: Cedrick Flores Hospital Course: Discharge Diagnosis: Severe DKA Dehydration Pancreatitis Right lower lobe pneumonia with probable hypotension Tobacco abuse Pseudohyponatremia, resolved Hyperkalemia, due to extracellular shift, resolved HTN HLD CAD s/p CABG Asthma Hospital Course: Patient is a 61-year-old female with a history of insulin-dependent diabetes, angina, coronary artery disease, and GERD who presented with intermittent start stabbing chest pain and shortness of breath. In the ER she underwent extensive evaluation. She was found to have pancreatitis, DKA, and hypotension. She was started on IV fluids and made nothing by mouth. She underwent a chest x-ray showed which showed right lower lobe pneumonia and she was subsequently started on Rocephin and Zithromax. Arrangements were made for admission she was started on DKA protocol. She had elevated d-dimer and computed tomography scan of the chest which is negative for PE but did redem onstrated right-sided pneumonia. Her DKA resolved and she was transitioned to sliding scale insulin and fixed dose Levemir. She was seen by pulmonary who agreed with continuing antibiotics. 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 Her sugars continue to improve, her abdominal pain resolved to her baseline, and she was eating and drinking well. She was determined stable for discharge home. Follow-up: Dr. Flores on 05/20 at 10:45 AM, begin home care Discontinue metformin, and it and enalapril His blood sugars were controlled minimal amounts of insulin. Recommended Levemir 20 units twice daily, cefdinir 300 mg every 12 hours for 2 additional days, and Zithromax for 2 additional days. Blood sugars three times daily at home Long acting Levemir in AM and at night Continue with your continuous glucose monitor Patient seen and examined at bedside. Patient wants to go home. States her abdominal pain is at her home baseline. Denies any nausea or vomiting. Tolerating diet well. We discussed that she'll be on both long and short-acting insulin and is important to continue to take them. She is in agreement. Vital signs reviewed and stable. General: non toxic, no distress, appears at stated age Derm: warm, dry Head: atraumatic, normocephalic, symmetric Eyes: EOMI, no lid lag, anicteric sclera Mouth: no lip lesion, mucus membranes moist Cardiovascular: S1S2 reg, no murmur, positive posterior tibial pulse bilateral, Lungs: CTA bilateral, no rhonchi, no rales , no accessory muscle use Abdominal: soft, tender to palpation diffusely, no guarding, no appreciable organomegaly Ext: no gross muscle atrophy, no edema, no contractures Neuro: CN II-XI grossly intact, no focal neuro deficits Psych: Alert, oriented, appropriate affect A total of 45 minutes of time were spent preparing this complex discharge summary . Patient Condition at Discharge: Serious Plan - Discharge Summary Discharge Rx Participant: Yes New Discharge Prescriptions: New Insulin Detemir (Levemir) [Levemir] 20 unit SQ DAILY@0700 ml Insulin Detemir (Levemir) [Levemir] 20 unit SQ HS ml Cefdinir [Omnicef] 300 mg PO Q12HR #4 capsule Azithromycin [Zithromax] 500 mg PO DAILY #2 tab Continue Atorvastatin [Lipitor] 80 mg PO HS gemfibroziL [Lopid] 600 mg PO AC-BID Gabapentin [Neurontin] 100 mg PO HS Ipratropium/Albuterol Sulfate [Combivent Respimat Inhaler] 1 puff INHALATION RT-QID PRN PRN Reason: Shortness Of Breath Aspirin 325 mg PO HS atenoloL [Tenormin] 25 mg PO DAILY #0 tab Isosorbide Mononitrate ER [Imdur] 30 mg PO DAILY Escitalopram [Lexapro] 10 mg PO DAILY Ondansetron Odt [Zofran ODT] 4 mg PO Q12HR PRN PRN Reason: Nausea Changed Insulin Aspart [NovoLOG] 10 units SQ AC-TID #0 Discontinued metFORMIN HCL [Metformin HCl ER] 500 mg PO DAILY Enalapril Maleate 10 mg PO DAILY Insulin Detemir [Levemir Flextouch Pen] 80 units SQ HS Discharge Medication List Aspirin 325 mg PO HS 09/26/14 [History] Atorvastatin [Lipitor] 80 mg PO HS 09/26/14 [History] Gabapentin [Neurontin] 100 mg PO HS 09/26/14 [History] Ipratropium/Albuterol Sulfate [Combivent Respimat Inhaler] 1 puff INHALATION RT- QID PRN 09/26/14 [History] gemfibroziL [Lopid] 600 mg PO AC-BID 09/26/14 [History] atenoloL [Tenormin] 25 mg PO DAILY #0 tab 01/29/16 [Rx] Escitalopram [Lexapro] 10 mg PO DAILY 05/15/21 [History] Isosorbide Mononitrate ER [Imdur] 30 mg PO DAILY 05/15/21 [History] Ondansetron Odt [Zofran ODT] 4 mg PO Q12HR PRN 05/15/21 [History] Azithromycin [Zithromax] 500 mg PO DAILY #2 tab 05/17/21 [Rx] Cefdinir [Omnicef] 300 mg PO Q12HR #4 capsule 05/17/21 [Rx] Insulin Aspart [NovoLOG] 10 units SQ AC-TID #0 05/17/21 [Rx] Insulin Detemir (Levemir) [Levemir] 20 unit SQ DAILY@0700 ml 05/17/21 [Rx] Insulin Detemir (Levemir) [Levemir] 20 unit SQ HS ml 05/17/21 [Rx] Follow up Appointment(s)/Referral(s): [facility], [NON-STAFF] - 1-2 Days Cedrick Flores MD [Primary Care Provider] - 05/20/21 10:45 am Patient Instructions/Handouts: Diabetic Ketoacidosis (DC), How to Give an Insulin Injection (DC), Meal Planning with Diabetes Exchanges (DC) Activity/Diet/Wound Care/Special Instructions: Activity: as tolerated Diet: carb consistent Special Instructions: Blood sugars three times daily at home Long acting Levemir in AM and at night Continue with your continuous glucose monitor [employer] is [phone] can be contacted to obtain your insulin pump supplies and to update your insurance with them to ensure the best coverage for your supplies. 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
[2021-05-18] MEDS ORDERED: INSULIN DETEMIR (LEVEMIR) 100 UNIT/ML SYR SQ SCH (07:00)
== END 2021-05-17 14:45 | disposition home or self-care (01) | DRG 637 ==
LOC: EC 11:05 → 2SICU 15:35
PROVIDERS: ADMIT Internal Medicine; ATTEND Internal Medicine
DX: E11.10 Type 2 diabetes mellitus with ketoacidosis without coma (principal); J18.9 Pneumonia, unspecified organism; K85.90 Acute pancreatitis without necrosis or infection, unspecified; Z20.822 Contact with and (suspected) exposure to COVID-19; J45.909 Unspecified asthma, uncomplicated; E78.5 Hyperlipidemia, unspecified; E86.0 Dehydration; E86.1 Hypovolemia; E87.5 Hyperkalemia; F17.210 Nicotine dependence, cigarettes, uncomplicated; Z71.6 Tobacco abuse counseling; I10 Essential (primary) hypertension; I25.10 Atherosclerotic heart disease of native coronary artery without angina pectoris; I25.2 Old myocardial infarction; Z79.4 Long term (current) use of insulin; Z79.82 Long term (current) use of aspirin; Z79.84 Long term (current) use of oral hypoglycemic drugs; Z79.899 Other long term (current) drug therapy; Z95.1 Presence of aortocoronary bypass graft; K21.9 Gastro-esophageal reflux disease without esophagitis; I95.9 Hypotension, unspecified; R79.89 Other specified abnormal findings of blood chemistry
CPT/HCPCS: 36415; 71046; 71275; 74177; 80048; 80051; 80053; 81001; 82009; 82565; 82803; 82947; 83036; 83690; 83735; 83880; 84100; 84132; 84478; 84484; 84520; 85025; 85027; 85379; 85610; 85730; 87040; 87635; 93005; 96361; 96374; 96375; 99291

== ENCOUNTER 2021-06-21 17:19 | Emergency (ER) | payer BC, MEDICARE ==
[2021-06-21 17:55] VITALS: TEMP 98.9
[2021-06-21 18:37] LABS: ALT 21 U/L (4-34); AST 20 U/L (14-36); African American GFR (CKD) >90 (>60 ml/min/1.73 sqM); Albumin 4.5 g/dL (3.5-5.0); Alkaline Phosphatase 109 U/L (38-126); Amylase 73 U/L (30-110); Anion Gap 14 mmol/L; Blood Urea Nitrogen 17 mg/dL (7-17); Calcium 9.9 mg/dL (8.4-10.2); Carbon Dioxide 24 mmol/L (22-30); Chloride 101 mmol/L (98-107); Glucose 216 mg/dL (74-99); Lipase 342 U/L (23-300); Non-African American GFR(CKD) >90 (>60 ml/min/1.73 sqM); Potassium 4.3 mmol/L (3.5-5.1); Sodium 139 mmol/L (137-145); Total Bilirubin 0.4 mg/dL (0.2-1.3); Total Protein 7.5 g/dL (6.3-8.2)
[2021-06-21 18:40] LABS: Basophils # (A) 0.1 k/uL (0-0.2); Basophils % (A) 1 %; Eosinophils # (A) 0.1 k/uL (0-0.7); Eosinophils % (A) 1 %; HCT 43.1 % (34.0-46.0); Lymphocytes # (A) 3.6 k/uL (1.0-4.8); Lymphocytes % (A) 43 %; MCH 31.4 pg (25.0-35.0); MCHC 32.6 g/dL (31.0-37.0); MCV 96.3 fL (80.0-100.0); Mean Platelet Volume 8.2; Monocytes # (A) 0.4 k/uL (0-1.0); Monocytes % (A) 5 %; Neutrophils % (A) 48 %; Platelet Count 230 k/uL (150-450); RBC 4.47 m/uL (3.80-5.40); RDW 12.9 % (11.5-15.5); WBC 8.3 k/uL (3.8-10.6)
[2021-06-21] MEDS ORDERED: ONDANSETRON 4 MG/2 ML VIAL IVP STA (20:21)
[2021-06-21] MEDS ORDERED: SODIUM CHLORIDE 0.9% 500 ML 500 ML IV ONE (20:21)
[2021-06-21] MEDS ORDERED: MORPHINE SULFATE 4 MG/ML SYRINGE IVP STA ×2 (20:21→22:49)
--- NOTE | 2021-06-21 20:56 | XR ---
EXAMINATION TYPE: XR chest 2V DATE OF EXAM: 06/21/2021 COMPARISON: 05/15/2021 HISTORY: Right side chest pain right upper quadrant pain. TECHNIQUE: 2 views FINDINGS: Heart is borderline enlarged. There are sternal wires. There is no gross heart failure. The re is no pleural effusion. Lungs are clear of consolidation. IMPRESSION: Borderline cardiomegaly. No acute lung disease. There is clearing of the small infiltrate right lung base compared to old exam.
--- NOTE | 2021-06-21 21:01 | ED ---
Abdominal Pain HPI - General Chief Complaint: Abdominal Pain Stated Complaint: rt sided abd pain Time Seen by Provider: 06/21/21 20:07 Source: patient Mode of arrival: wheelchair Limitations: no limitations - History of Present Illness Initial Comments: 61 year-old female patient presents for evaluation of right upper quadrant abdominal pain. Patient and family states she has had increased pain for the last couple of weeks. She has had this pain intermittently in the past. She states she has been nauseated and is having dry heaves but no vomiting. Denies any constipation or diarrhea. States that she has had open heart surgery and appendectomy but no other abdominal surgeries. Does have history of pancreatitis. Denies alcohol use. She is diabetic. Denies any dark, black, bloody stools. Denies any hematuria, dysuria, urinary frequency, urinary urgency. Patient denies any recent rash, fever, chills, cough, shortness of breath, back pain, numbness, tingling, dizziness, weakness, hematuria, dysuria, urinary urgency, urinary frequency, headache, visual changes, or any other complaints. - Related Data Home Medications Medication Instructions Recorded Confirmed Aspirin 325 mg PO HS 09/26/14 05/15/21 Atorvastatin [Lipitor] 80 mg PO HS 09/26/14 05/15/21 Gabapentin [Neurontin] 100 mg PO HS 09/26/14 05/15/21 Ipratropium/Albuterol Sulfate 1 puff INHALATION RT-QID PRN 09/26/14 05/15/21 [Combivent Respimat Inhaler] gemfibroziL [Lopid] 600 mg PO AC-BID 09/26/14 05/15/21 Escitalopram [Lexapro] 10 mg PO DAILY 05/15/21 05/15/21 Isosorbide Mononitrate ER [Imdur] 30 mg PO DAILY 05/15/21 05/15/21 Ondansetron Odt [Zofran ODT] 4 mg PO Q12HR PRN 05/15/21 05/15/21 Previous Rx's Medication Instructions Recorded atenoloL [Tenormin] 25 mg PO DAILY #0 tab 01/29/16 Azithromycin [Zithromax] 500 mg PO DAILY #2 tab 05/17/21 Cefdinir [Omnicef] 300 mg PO Q12HR #4 capsule 05/17/21 Insulin Aspart [NovoLOG] 10 units SQ AC-TID #0 05/17/21 Insulin Detemir (Levemir) [Levemir] 20 unit SQ DAILY@0700 ml 05/17/21 Insulin Detemir (Levemir) [Levemir] 20 unit SQ HS ml 05/17/21 Allergies Allergy/AdvReac Type Severity Reaction Status Date / Time No Known Allergies Allergy Verified 06/21/21 17:52 Review of Systems ROS Statement: Those systems with pertinent positive or pertinent negative responses have been documented in the HPI. ROS Other: All systems not noted in ROS Statement are negative. Past Medical History Past Medical History: Chest Pain / Angina, Diabetes Mellitus, GERD/Reflux, Myocardial Infarction ([place]) Additional Past Medical History / Comment(s): Pancreatitis Last Myocardial Infarction Date:: 2002 History of Any Multi-Drug Resistant Organisms: None Reported Past Surgical History: Appendectomy Additional Past Surgical History / Comment(s): Open heart in 2002. bilateral carpal tunnel sx Past Anesthesia/Blood Transfusion Reactions: No Reported Reaction Past Psychological History: No Psychological Hx Reported Smoking Status: Current every day smoker Past Alcohol Use History: None Reported Past Drug Use History: None Reported - Past Family History Mother History Unknown: Yes General Exam Limitations: no limitations General appearance: alert, in no apparent distress, other (Physical well- developed, well-nourished adult female patient in no acute distress. ) ENT exam: Present: normal exam, normal oropharynx, mucous membranes moist Respiratory exam: Present: normal lung sounds bilaterally. Absent: respiratory distress, wheezes, rales, rhonchi, stridor Cardiovascular Exam: Present: regular rate, normal rhythm, normal heart sounds. Absent: systolic murmur, diastolic murmur, rubs, gallop, clicks GI/Abdominal exam: Present: soft, tenderness (Midepigastric right upper quadrant), normal bowel sounds. Absent: distended, guarding, rebound, rigid Neurological exam: Present: alert, oriented X3, CN II-XII intact Psychiatric exam: Present: normal affect, normal mood Skin exam: Present: warm, dry, intact, normal color. Absent: rash Course Vital Signs 06/21/21 06/21/21 17:52 23:12 Temperature 98.9 F Pulse Rate 74 71 Respiratory 20 17 Rate Blood Pressure 150/76 115/68 O2 Sat by Pulse 97 99 Oximetry Medical Decision Making - Medical Decision Making 61 year-old female patient presents for evaluation of upper abdominal pain, nausea, and dry heaves. Physical examination did reveal midepigastric and right upper quadrant tenderness. Labs revealed elevated lipase at 342. She has had pancreatitis multiple times in the past. Ultrasound was unremarkable. No evidence for gallstones. Upon re-evaluation she is resting comfortably in bed. States pain medication helped. States she has had this similar pain many times in the past. We did discuss the possibility of chronic pancreatitis. She is given pain medication for home. Instructed to follow low fat diet. She has appointment with her primary care physician in the morning. She is instructed to follow up with GI specialist. Return parameters are discussed in detail. She verbalizes understanding and agrees with this plan. My attending is Dr. iY. - Lab Data Result diagrams: 06/21/21 18:22 06/21/21 18:22 Lab Results 06/21/21 06/21/21 06/21/21 Range/Units 18:22 18:22 18:22 WBC 8.3 (3.8-10.6) k/uL RBC 4.47 (3.80-5.40) m/uL Hgb 14.0 (11.4-16.0) gm/dL Hct 43.1 (34.0-46.0) % MCV 96.3 (80.0-100.0) fL MCH 31.4 (25.0-35.0) pg MCHC 32.6 (31.0-37.0) g/dL RDW 12.9 (11.5-15.5) % Plt Count 230 (150-450) k/uL MPV 8.2 Neutrophils % 48 % Lymphocytes % 43 % Monocytes % 5 % Eosinophils % 1 % Basophils % 1 % Neutrophils # 4.0 (1.3-7.7) k/uL Lymphocytes # 3.6 (1.0-4.8) k/uL Monocytes # 0.4 (0-1.0) k/uL Eosinophils # 0.1 (0-0.7) k/uL Basophils # 0.1 (0-0.2) k/uL Sodium 139 (137-145) mmol/L Potassium 4.3 (3.5-5.1) mmol/L Chloride 101 (98-107) mmol/L Carbon Dioxide 24 (22-30) mmol/L Anion Gap 14 mmol/L BUN 17 (7-17) mg/dL Creatinine 0.50 L (0.52-1.04) mg/dL Est GFR (CKD-EPI)AfAm >90 (>60 ml/min/1.73 sqM) Est GFR (CKD-EPI)NonAf >90 (>60 ml/min/1.73 sqM) Glucose 216 H (74-99) mg/dL Calcium 9.9 (8.4-10.2) mg/dL Total Bilirubin 0.4 (0.2-1.3) mg/dL AST 20 (14-36) U/L ALT 21 (4-34) U/L Alkaline Phosphatase 109 (38-126) U/L Total Protein 7.5 (6.3-8.2) g/dL Albumin 4.5 (3.5-5.0) g/dL Amylase 73 (30-110) U/L Lipase 342 H (23-300) U/L Urine Color Yellow Urine Appearance Clear (Clear) Urine pH 6.0 (5.0-8.0) Ur Specific [place] 1.028 (1.001-1.035) Urine Protein Trace H (Negative) Urine Glucose (UA) Negative (Negative) Urine Ketones Negative (Negative) Urine Blood Negative (Negative) Urine Nitrite Negative (Negative) Urine Bilirubin Negative (Negative) Urine Urobilinogen 2.0 (<2.0) mg/dL Ur Leukocyte Esterase Negative (Negative) - Radiology Data Radiology results: report reviewed Ultrasound of the right upper quadrant abdomen shows no acute abnormalities. Disposition Clinical Impression: Abdominal pain Disposition: HOME SELF-CARE Condition: Good Instructions (If sedation given, give patient instructions): Low Fat Diet (ED), Abdominal Pain (ED) Additional Instructions: Follow low-fat diet. Follow up with GI specialist for further evaluation as soon as possible. Return for any new, worsening, or concerning symptoms. Is patient prescribed a controlled substance at d/c from ED?: No Referrals: Cedrick Flores MD [Primary Care Provider] - 1-2 days Karrie Artis MD [STAFF PHYSICIAN] - 1-2 days Time of Disposition: 22:45
--- NOTE | 2021-06-21 21:51 | US ---
EXAMINATION TYPE: US abdomen limited DATE OF EXAM: 06/21/2021 COMPARISON: NONE CLINICAL HISTORY: Right upper quadrant pain. epigastric pain ongoing for years EXAM MEASUREMENTS: Liver Length: 18.8 cm Gallbladder Wall: 0.2 cm CBD: 0.6 cm Right Kidney: 10.9 x 4.5 x 5.0 cm Pancreas: wnl Liver: difficult to penetrate, upper limits of normal for size Gallbladder: fold seen, wnl Evidence for sonographic Carbajal's sign: yes CBD: wnl Right Kidney: wnl IMPRESSION: No gallstones or dilated ducts. No free fluid.
[2021-06-21 22:10] LABS: Appearance,Urine Clear (Clear); Bilirubin,Urine Negative (Negative); Blood,Urine Negative (Negative); Color,Urine Yellow; Glucose,Urine (UA) Negative (Negative); Ketones,Urine Negative (Negative); Leukocyte Esterase,Urine Negative (Negative); Nitrite,Urine Negative (Negative); Protein,Urine Trace (Negative); Specific Gravity,Urine 1.028 (1.001-1.035)
[2021-06-21] MEDS ORDERED: ACET/COD 300 MG/30 MG STARTER PACK 6 TAB BTL PO STA (22:45)
[2021-06-21 23:17] VITALS: BP 115/68; PULSE 71; RESP 17
== END 2021-06-21 23:12 | disposition home or self-care (01) ==
LOC: EC 17:19
DX: R10.11 Right upper quadrant pain (principal); E11.9 Type 2 diabetes mellitus without complications; K21.9 Gastro-esophageal reflux disease without esophagitis; I25.2 Old myocardial infarction; F17.200 Nicotine dependence, unspecified, uncomplicated; Z79.82 Long term (current) use of aspirin; Z79.4 Long term (current) use of insulin; Z90.49 Acquired absence of other specified parts of digestive tract
CPT/HCPCS: 99284; 96374; 96375; 96376; 36415; 80053; 82150; 83690; 85025; 81003; 71046; 76705; J2270; J2405

== ENCOUNTER 2021-08-29 12:50 | Observation (INO) | payer BC, MEDICARE ==
[2021-08-29] MEDS ORDERED: HYDROmorphone 1 MG/ML 1 ML SYRINGE IVP STA (13:16)
--- NOTE | 2021-08-29 13:33 | ED ---
General Adult HPI - General Chief complaint: Chest Pain Stated complaint: chest pain Time Seen by Provider: 08/29/21 12:57 Source: patient, RN notes reviewed, old records reviewed Mode of arrival: ambulatory Limitations: no limitations - History of Present Illness Initial comments: 61-year-old female presenting for evaluation of lower chest pain and epigastric pain. Patient states she's had these symptoms ongoing for the past 3 years. She states over the past 3 days this has been worse. Urdu is not her first language but she is able to give further detailed history. No dyspnea. She's had several episodes of vomiting. - Related Data Home Medications Medication Instructions Recorded Confirmed Aspirin 325 mg PO HS 09/26/14 08/29/21 Atorvastatin [Lipitor] 80 mg PO HS 09/26/14 08/29/21 Escitalopram [Lexapro] 10 mg PO HS 05/15/21 08/29/21 Isosorbide Mononitrate ER [Imdur] 30 mg PO HS 05/15/21 08/29/21 Enalapril [Vasotec] 10 mg PO HS 08/29/21 08/29/21 Furosemide [Lasix] 20 mg PO DAILY PRN 08/29/21 08/29/21 Insulin Aspart [NovoLOG Flexpen] See Protocol SQ TID-W/MEALS 08/29/21 08/29/21 Insulin Detemir (Levemir) [Levemir] 40 unit SQ HS 08/29/21 08/29/21 Nitroglycerin Sl Tabs [Nitrostat] 0.4 mg SUBLINGUAL Q5M PRN 08/29/21 08/29/21 atenoloL [Tenormin] 50 mg PO HS 08/29/21 08/29/21 Allergies Allergy/AdvReac Type Severity Reaction Status Date / Time No Known Allergies Allergy Verified 08/29/21 14:41 Review of Systems ROS Statement: Those systems with pertinent positive or pertinent negative responses have been documented in the HPI. ROS Other: All systems not noted in ROS Statement are negative. Past Medical History Past Medical History: Chest Pain / Angina, Diabetes Mellitus, GERD/Reflux, Myocardial Infarction ([place]) Additional Past Medical History / Comment(s): Pancreatitis Last Myocardial Infarction Date:: 2002 History of Any Multi-Drug Resistant Organisms: None Reported Past Surgical History: Appendectomy Additional Past Surgical History / Comment(s): Open heart in 2002. bilateral carpal tunnel sx Past Anesthesia/Blood Transfusion Reactions: No Reported Reaction Past Psychological History: No Psychological Hx Reported Smoking Status: Current every day smoker Past Alcohol Use History: None Reported Past Drug Use History: None Reported - Past Family History Mother History Unknown: Yes General Exam Limitations: no limitations General appearance: alert, in no apparent distress Head exam: Present: atraumatic, normocephalic Eye exam: Present: normal appearance, PERRL ENT exam: Present: normal exam Neck exam: Present: normal inspection, tenderness Respiratory exam: Present: normal lung sounds bilaterally. Absent: respiratory distress, wheezes Cardiovascular Exam: Present: regular rate, normal rhythm GI/Abdominal exam: Present: tenderness (Epigastric) Extremities exam: Present: normal inspection, normal capillary refill. Absent: pedal edema, calf tenderness Neurological exam: Present: alert, oriented X3, CN II-XII intact. Absent: motor sensory deficit Psychiatric exam: Present: normal affect, normal mood Skin exam: Present: warm, dry, intact. Absent: cyanosis, diaphoretic Course Vital Signs 08/29/21 08/29/21 12:52 15:19 Temperature 98.5 F Pulse Rate 73 58 L Respiratory 20 16 Rate Blood Pressure 138/64 127/57 O2 Sat by Pulse 99 97 Oximetry EKG Findings - EKG Comments: EKG Findings:: EKG: Sinus rhythm, incomplete right bundle-branch block, rate of 63, MD interval 132, QRS duration 100, QTC [address] segment elevation, T-wave inversion in the lateral precordial leads. Medical Decision Making - Medical Decision Making 61-year-old female presenting for reevaluation of chest pain and epigastric pain. Patient does have previous history of both pancreatitis as well as CAD. Workup is initiated. She has EKG showing sinus rhythm without ST segment elevation. Chest x-ray is negative. She has a mildly elevated lipase at 500. Also her blood sugar is elevated at 500. She has a negative initial troponin. She will be admitted for further evaluation treatment of both chest pain and epigastric pain as well as pancreatitis. Case discussed with [facility]. - Lab Data Result diagrams: 08/29/21 13:20 08/29/21 13:20 Lab Results 08/29/21 08/29/21 08/29/21 Range/Units 13:20 13:20 13:20 WBC 8.3 (3.8-10.6) k/uL RBC 4.57 (3.80-5.40) m/uL Hgb 14.6 (11.4-16.0) gm/dL Hct 44.5 (34.0-46.0) % MCV 97.5 (80.0-100.0) fL MCH 32.0 (25.0-35.0) pg MCHC 32.8 (31.0-37.0) g/dL RDW 12.6 (11.5-15.5) % Plt Count 225 (150-450) k/uL MPV 8.4 Neutrophils % 55 % Lymphocytes % 37 % Monocytes % 5 % Eosinophils % 2 % Basophils % 0 % Neutrophils # 4.6 (1.3-7.7) k/uL Lymphocytes # 3.0 (1.0-4.8) k/uL Monocytes # 0.4 (0-1.0) k/uL Eosinophils # 0.2 (0-0.7) k/uL Basophils # 0.0 (0-0.2) k/uL PT 11.6 (9.0-12.0) sec INR 1.1 (<1.2) APTT 24.7 (22.0-30.0) sec Sodium 134 L (137-145) mmol/L Potassium 5.1 (3.5-5.1) mmol/L Chloride 97 L (98-107) mmol/L Carbon Dioxide 25 (22-30) mmol/L Anion Gap 12 mmol/L BUN 15 (7-17) mg/dL Creatinine 0.85 (0.52-1.04) mg/dL Est GFR (CKD-EPI)AfAm 87 (>60 ml/min/1.73 sqM) Est GFR (CKD-EPI)NonAf 76 (>60 ml/min/1.73 sqM) Glucose 507 H* (74-99) mg/dL POC Glucose (mg/dL) (75-99) mg/dL POC Glu Shot Core Drill Operator ID Calcium 9.8 (8.4-10.2) mg/dL Magnesium 1.4 L (1.6-2.3) mg/dL Total Bilirubin 0.6 (0.2-1.3) mg/dL AST 18 (14-36) U/L ALT 20 (4-34) U/L Alkaline Phosphatase 113 (38-126) U/L Troponin I (0.000-0.034) ng/mL Total Protein 7.1 (6.3-8.2) g/dL Albumin 4.3 (3.5-5.0) g/dL Lipase 470 H (23-300) U/L Urine Color Urine Appearance (Clear) Urine pH (5.0-8.0) Ur Specific [place] (1.001-1.035) Urine Protein (Negative) Urine Glucose (UA) (Negative) Urine Ketones (Negative) Urine Blood (Negative) Urine Nitrite (Negative) Urine Bilirubin (Negative) Urine Urobilinogen (<2.0) mg/dL Ur Leukocyte Esterase (Negative) Acetone, Qual (Negative) Coronavirus (PCR) (Not Detectd) 08/29/21 08/29/21 08/29/21 Range/Units 13:20 13:20 15:12 WBC (3.8-10.6) k/uL RBC (3.80-5.40) m/uL Hgb (11.4-16.0) gm/dL Hct (34.0-46.0) % MCV (80.0-100.0) fL MCH (25.0-35.0) pg MCHC (31.0-37.0) g/dL RDW (11.5-15.5) % Plt Count (150-450) k/uL MPV Neutrophils % % Lymphocytes % % Monocytes % % Eosinophils % % Basophils % % Neutrophils # (1.3-7.7) k/uL Lymphocytes # (1.0-4.8) k/uL Monocytes # (0-1.0) k/uL Eosinophils # (0-0.7) k/uL Basophils # (0-0.2) k/uL PT (9.0-12.0) sec INR (<1.2) APTT (22.0-30.0) sec Sodium (137-145) mmol/L Potassium (3.5-5.1) mmol/L Chloride (98-107) mmol/L Carbon Dioxide (22-30) mmol/L Anion Gap mmol/L BUN (7-17) mg/dL Creatinine (0.52-1.04) mg/dL Est GFR (CKD-EPI)AfAm (>60 ml/min/1.73 sqM) Est GFR (CKD-EPI)NonAf (>60 ml/min/1.73 sqM) Glucose (74-99) mg/dL POC Glucose (mg/dL) 461 H (75-99) mg/dL POC Glu Shot Core Drill Operator Helena Dietrich Calcium (8.4-10.2) mg/dL Magnesium (1.6-2.3) mg/dL Total Bilirubin (0.2-1.3) mg/dL AST (14-36) U/L ALT (4-34) U/L Alkaline Phosphatase (38-126) U/L Troponin I <0.012 (0.000-0.034) ng/mL Total Protein (6.3-8.2) g/dL Albumin (3.5-5.0) g/dL Lipase (23-300) U/L Urine Color Urine Appearance (Clear) Urine pH (5.0-8.0) Ur Specific [place] (1.001-1.035) Urine Protein (Negative) Urine Glucose (UA) (Negative) Urine Ketones (Negative) Urine Blood (Negative) Urine Nitrite (Negative) Urine Bilirubin (Negative) Urine Urobilinogen (<2.0) mg/dL Ur Leukocyte Esterase (Negative) Acetone, Qual Negative (Negative) Coronavirus (PCR) (Not Detectd) 08/29/21 08/29/21 Range/Units 15:19 16:15 WBC (3.8-10.6) k/uL RBC (3.80-5.40) m/uL Hgb (11.4-16.0) gm/dL Hct (34.0-46.0) % MCV (80.0-100.0) fL MCH (25.0-35.0) pg MCHC (31.0-37.0) g/dL RDW (11.5-15.5) % Plt Count (150-450) k/uL MPV Neutrophils % % Lymphocytes % % Monocytes % % Eosinophils % % Basophils % % Neutrophils # (1.3-7.7) k/uL Lymphocytes # (1.0-4.8) k/uL Monocytes # (0-1.0) k/uL Eosinophils # (0-0.7) k/uL Basophils # (0-0.2) k/uL PT (9.0-12.0) sec INR (<1.2) APTT (22.0-30.0) sec Sodium (137-145) mmol/L Potassium (3.5-5.1) mmol/L Chloride (98-107) mmol/L Carbon Dioxide (22-30) mmol/L Anion Gap mmol/L BUN (7-17) mg/dL Creatinine (0.52-1.04) mg/dL Est GFR (CKD-EPI)AfAm (>60 ml/min/1.73 sqM) Est GFR (CKD-EPI)NonAf (>60 ml/min/1.73 sqM) Glucose (74-99) mg/dL POC Glucose (mg/dL) (75-99) mg/dL POC Glu Shot Core Drill Operator ID Calcium (8.4-10.2) mg/dL Magnesium (1.6-2.3) mg/dL Total Bilirubin (0.2-1.3) mg/dL AST (14-36) U/L ALT (4-34) U/L Alkaline Phosphatase (38-126) U/L Troponin I (0.000-0.034) ng/mL Total Protein (6.3-8.2) g/dL Albumin (3.5-5.0) g/dL Lipase (23-300) U/L Urine Color Yellow Urine Appearance Clear (Clear) Urine pH 6.0 (5.0-8.0) Ur Specific [place] 1.026 (1.001-1.035) Urine Protein Negative (Negative) Urine Glucose (UA) 4+ H (Negative) Urine Ketones Negative (Negative) Urine Blood Negative (Negative) Urine Nitrite Negative (Negative) Urine Bilirubin Negative (Negative) Urine Urobilinogen <2.0 (<2.0) mg/dL Ur Leukocyte Esterase Negative (Negative) Acetone, Qual (Negative) Coronavirus (PCR) Not Detected (Not Detectd) Disposition Clinical Impression: Pancreatitis, Epigastric pain, Chest pain Disposition: ADMITTED IP TO THIS [facility] Condition: Stable Is patient prescribed a controlled substance at d/c from ED?: No Referrals: Cedrick Flores MD [Primary Care Provider] - 1-2 days Decision to Admit Reason: Admit from EC Decision Date: 08/29/21 Decision Time: 16:49
[2021-08-29 13:42] LABS: Basophils % (A) 0 %; Eosinophils # (A) 0.2 k/uL (0-0.7); Eosinophils % (A) 2 %; HCT 44.5 % (34.0-46.0); HGB 14.6 gm/dL (11.4-16.0); Lymphocytes % (A) 37 %; MCHC 32.8 g/dL (31.0-37.0); MCV 97.5 fL (80.0-100.0); Mean Platelet Volume 8.4; Monocytes # (A) 0.4 k/uL (0-1.0); Monocytes % (A) 5 %; Neutrophils # (A) 4.6 k/uL (1.3-7.7); Neutrophils % (A) 55 %; Platelet Count 225 k/uL (150-450); RBC 4.57 m/uL (3.80-5.40); RDW 12.6 % (11.5-15.5); WBC 8.3 k/uL (3.8-10.6)
--- NOTE | 2021-08-29 13:46 | XR ---
EXAMINATION TYPE: XR chest 2V DATE OF EXAM: 08/29/2021 COMPARISON: 06/21/2021 TECHNIQUE: PA and lateral views submitted. HISTORY: Chest pain FINDINGS: The lungs are clear and there is no pneumothorax, pleural effusion, or focal pneumonia. Heart enlar ged and there is postoperative change. No overt failure. IMPRESSION: 1. Cardiomegaly.
[2021-08-29 13:53] LABS: Albumin 4.3 g/dL (3.5-5.0); Calcium 9.8 mg/dL (8.4-10.2); INR 1.1 (<1.2); Magnesium 1.4 mg/dL (1.6-2.3); Partial Thromboplastin Time 24.7 sec (22.0-30.0); Potassium 5.1 mmol/L (3.5-5.1); Prothrombin Time 11.6 sec (9.0-12.0); Total Bilirubin 0.6 mg/dL (0.2-1.3); Total Protein 7.1 g/dL (6.3-8.2)
[2021-08-29] MEDS ORDERED: SODIUM CHLORIDE 0.9% 500 ML 500 ML IV ONE (14:26)
[2021-08-29] MEDS ORDERED: HYDROmorphone 0.5 MG/0.5 ML SYRINGE IVP STA (15:04)
[2021-08-29] MEDS ORDERED: INSULIN REGULAR 100 UNIT/ML VIAL (IV) IV ONE (15:04)
[2021-08-29] MEDS ORDERED: MAG HYDROX/AL HYDROX/SIMETH 30 ML, HYOSCYAMINE ELIXIR 10 ML PO STA ×2 (15:05)
[2021-08-29 15:21] LABS: Glucose,Whole Blood 461 mg/dL (75-99)
[2021-08-29 15:42] LABS: Appearance,Urine Clear (Clear); Bilirubin,Urine Negative (Negative); Blood,Urine Negative (Negative); Color,Urine Yellow; Glucose,Urine (UA) 4+ (Negative); Ketones,Urine Negative (Negative); Leukocyte Esterase,Urine Negative (Negative); Nitrite,Urine Negative (Negative); Protein,Urine Negative (Negative); Specific Gravity,Urine 1.026 (1.001-1.035); Urobilinogen,Urine <2.0 mg/dL (<2.0)
[2021-08-29] MEDS ORDERED: ACETAMINOPHEN TAB 325 MG TAB PO PRN (16:31)
[2021-08-29] MEDS ORDERED: NALOXONE 0.4 MG/ML 1 ML VIAL IV PRN ×2 (16:31→16:46)
[2021-08-29] MEDS ORDERED: HYDROcodone/APAP 5-325MG 1 EACH TAB PO PRN (16:31)
[2021-08-29] MEDS ORDERED: ONDANSETRON 4 MG/2 ML VIAL IVP PRN (16:31)
[2021-08-29] MEDS ORDERED: MAG HYDROX/AL HYDROX/SIMETH 30 ML CUP PO PRN (16:31)
[2021-08-29] MEDS ORDERED: SODIUM CHLORIDE 0.9% 1,000 ML IV STA (16:40)
[2021-08-29] MEDS ORDERED: FUROSEMIDE 20 MG TAB PO PRN (16:41)
[2021-08-29] MEDS ORDERED: IOPAMIDOL CONTRAST (ORAL USE) VIAL PO PRN (16:43)
--- NOTE | 2021-08-29 16:47 | P.HPIM ---
History of Present Illness H&P Date: 08/29/21 61-year-old female with past medical history of hypertension diabetes admitted to the hospital with epigastric pain and chest pain according the patient this has been going for a few years but has been getting worse over the last few weeks patient states that she went to multiple hospitals before for this and she still doesn't know exactly what she is having abdominal pain but states that in the last few days has been getting worse Review of systems and systems has been reviewed all negative and positive findings as per history of present illness Constitutional: No acute distress, conversant, pleasant Eyes: Anicteric sclerae, moist conjunctiva, no lid-lag PERRLA ENMT: NC/AT Oropharynx clear, no erythema, exudates Neck: Supple, FROM, no masses, or JVD No carotid bruits No thyromegaly Lungs: Clear to auscultation Clear to percussion Normal respiratory effort, no accessory muscle use Cardiovascular: Heart regular in rate and rhythm, No murmurs, gallops, or rubs No peripheral edema Abdominal: Soft Nontender, no guarding, rebound or rigidity Abdomen moving with respiration Normoactive bowel sounds No hepatomegaly, No splenomegaly No palpable mass No abdominal wall hernia noted epigastric tenderness Skin: Normal temperature, tone, texture, turgor No induration No subcutaneous nodules No rash, lesions No ulcers Extremities: No digital cyanosis No clubbing Pedal pulses intact and symmetrical Radial pulses intact and symmetrical Normal gait and station No calf tenderness Psychiatric:Alert and oriented to person, place and time Appropriate affect Intact judgement Neuro: Muscles Strength 5/5 in all 4 extremities Sensation to light touch grossly present throughout Cranial nerves II-XII grossly intact No focal sensory deficits Epigastric pain exact etiology not clear with some elevation lipase likely mild pancreatitis the patient denies drinking at this time We'll check computed tomography scan of the abdomen and pelvis Question about chest pain we'll check cardiac enzymes will consult cardiology Diabetes uncontrolled but the patient on sliding scale insulin Obesity Past Medical History Past Medical History: Chest Pain / Angina, Diabetes Mellitus, GERD/Reflux, Myocardial Infarction ([place]) Additional Past Medical History / Comment(s): Pancreatitis Last Myocardial Infarction Date:: 2002 History of Any Multi-Drug Resistant Organisms: None Reported Past Surgical History: Appendectomy Additional Past Surgical History / Comment(s): Open heart in 2002. bilateral carpal tunnel sx Past Anesthesia/Blood Transfusion Reactions: No Reported Reaction Past Psychological History: No Psychological Hx Reported Smoking Status: Current every day smoker Past Alcohol Use History: None Reported Past Drug Use History: None Reported - Past Family History Mother History Unknown: Yes Medications and Allergies Home Medications Medication Instructions Recorded Confirmed Type Aspirin 325 mg PO HS 09/26/14 08/29/21 History Atorvastatin [Lipitor] 80 mg PO HS 09/26/14 08/29/21 History Escitalopram [Lexapro] 10 mg PO HS 05/15/21 08/29/21 History Isosorbide Mononitrate ER [Imdur] 30 mg PO HS 05/15/21 08/29/21 History Enalapril [Vasotec] 10 mg PO HS 08/29/21 08/29/21 History Furosemide [Lasix] 20 mg PO DAILY PRN 08/29/21 08/29/21 History Insulin Aspart [NovoLOG Flexpen] See Protocol SQ TID-W/MEALS 08/29/21 08/29/21 History Insulin Detemir (Levemir) [Levemir] 40 unit SQ HS 08/29/21 08/29/21 History Nitroglycerin Sl Tabs [Nitrostat] 0.4 mg SUBLINGUAL Q5M PRN 08/29/21 08/29/21 History atenoloL [Tenormin] 50 mg PO HS 08/29/21 08/29/21 History Allergies Allergy/AdvReac Type Severity Reaction Status Date / Time No Known Allergies Allergy Verified 08/29/21 14:41 Physical Exam Vitals: Vital Signs Temp Pulse Resp BP Pulse Ox 08/29/21 15:19 58 L 16 127/57 97 08/29/21 12:52 98.5 F 73 20 138/64 99 Intake and Output 08/29/21 08/29/21 08/29/21 06:59 14:59 22:59 Other: Weight 68.039 kg Results CBC & Chem 7: 08/29/21 13:20 08/29/21 13:20 Labs: Abnormal Lab Results - Last 24 Hours (Table) 08/29/21 08/29/21 08/29/21 Range/Units 13:20 15:12 15:19 Sodium 134 L (137-145) mmol/L Chloride 97 L (98-107) mmol/L Glucose 507 H* (74-99) mg/dL POC Glucose (mg/dL) 461 H (75-99) mg/dL Magnesium 1.4 L (1.6-2.3) mg/dL Lipase 470 H (23-300) U/L Urine Glucose (UA) 4+ H (Negative)
[2021-08-29 16:52] LABS: Glucose,Whole Blood 416 mg/dL (75-99)
[2021-08-29] MEDS: INSULIN ASPART (NovoLOG) 100 UNIT/ML VIAL SQ SCH ×2 (17:57→22:28)
[2021-08-29 18:09] LABS: Glucose,Whole Blood 371 mg/dL (75-99)
--- NOTE | 2021-08-29 20:06 | CT ---
EXAMINATION TYPE: CT abdomen pelvis wo/w con CT DLP: 1585 mGycm, Automated exposure control for dose reduction was used. DATE OF EXAM: 08/29/2021 6:52 PM COMPARISON: CT abdomen pelvis most recent from 05/15/2021. CLINICAL INDICATION:Female, 61 years old with history of abdominal pain; TECHNIQUE: Standard CT of the abdomen and pelvis without and following the administration of 100 cc of Isovue 300 IV contrast material. Coronal and sagittal reformats were performed. FINDINGS: LOWER CHEST: Right intrafissural lymph node in 4 mm, stable from prior. Lower lobe streaky opacity li guera representing scarring prior infection. ABDOMEN LIVER: Focal fatty infiltration adjacent to the falciform ligament in segment IVb GALLBLADDER AND BILE DUCTS: Unremarkable. PANCREAS: Unremarkable. SPLEEN: Unremarkable. ADRENAL GLANDS: Unremarkable. KIDNEYS AND URETERS: No evidence of hydronephrosis. 2 mm nonobstructing renal calculus. The ureters a re unremarkable. PELVIS BLADDER: Distended measuring up to 11.8 x 10.5 x 13.1 cm. REPRODUCTIVE: Unremarkable. ABDOMEN & PELVIS STOMACH AND BOWEL: There is a large stool burden throughout the colon. Scattered clonic diverticula a re present. No evidence of bowel obstruction. PERITONEUM: No evidence of pneumoperitoneum or free fluid. VASCULATURE: Moderate atherosclerotic calcifications are present throughout the abdominal aorta and i ts branches. MUSCULOSKELETAL: Mild disc degeneration changes are present throughout the thoracolumbar spine. LYMPH NODES: No gross evidence for lymphadenopathy. Stable prominent lay hepatis lymph node 12 mm i n short axis. SOFT TISSUE/ABDOMINAL WALL: Unremarkable IMPRESSION: 1. Large stool burden throughout the colon without evidence for acute intraluminal process. 2. Markedly distended urinary bladder. 3. Scattered clonic diverticula 4. Non obstructing right renal calculus.
[2021-08-29] MEDS ORDERED: ISOSORBIDE MONONITRATE ER 30 MG TAB.ER.24H PO SCH (21:00)
[2021-08-29] MEDS ORDERED: INSULIN DETEMIR (LEVEMIR) 100 UNIT/ML SYR SQ SCH (21:00)
[2021-08-29] MEDS ORDERED: NON FORMULARY DRUG (Enalapril 10 MG Tab) PO SCH (21:00)
[2021-08-29] MEDS ORDERED: ASPIRIN 325 MG TAB PO SCH (21:00)
[2021-08-29] MEDS ORDERED: ATORVASTATIN 80 MG TAB PO SCH (21:00)
[2021-08-29] MEDS ORDERED: atenoloL 50 MG TAB PO SCH (21:00)
[2021-08-29] MEDS ORDERED: ESCITALOPRAM 10 MG TAB PO SCH (21:00)
[2021-08-29 21:41] LABS: Glucose,Whole Blood 335 mg/dL (75-99)
[2021-08-30] MEDS ORDERED: CAFFEINE CITRATE 60 MG/3 ML VIAL IV PRN (06:59)
[2021-08-30] MEDS ORDERED: AMINOPHYLLINE 500 MG/20 ML VIAL IV PRN (06:59)
[2021-08-30] MEDS ORDERED: REGADENOSON 0.4 MG/5 ML SYRINGE IV PRN (06:59)
--- NOTE | 2021-08-30 07:08 | P.CRDCN ---
History of Present Illness Consult date: 08/30/21 History of present illness: The patient is a 61-year-old female with a known history of hypertension, hyperlipidemia and history of diabetes mellitus as well as smoking who presents with symptoms of chest discomfort. She has been having the discomfort for a while worse over the last few weeks. The discomfort is in the lower chest and epigastric, worse with deep breathing and palpation. She has a known history of coronary artery disease, status post CABG in 2011. She has been followed by Dr. Artis on a regular basis. She denies any prior history of myocardial infarction or congestive heart failure. She denies any PND or orthopnea but she has occasional peripheral edema. She is not very active physically and has some dyspnea on exertion. She denies any dizziness, palpitations or syncope. She has no recent cardiac workup. Her coronary risk factors are positive for hypertension, hyperlipidemia, diabetes and smoking. Her medication at home include Tenormin 50 mg daily, isosorbide mononitrate 30 mg daily, Lipitor 80 mg daily, aspirin once a day, Vasotec 10 mg daily, insulin. Review of system: Respiratory: No history of asthma, bronchitis or recent cough. She has a history of chronic tobacco use and chronic dyspnea on exertion GI: No nausea, vomiting. No history of peptic ulcer disease. No recent GI bleed. : No hematuria or dysuria. Nervous System: No stroke or seizure. Physical examination: 61-year-old female, alert oriented no apparent distress, blood pressure 104/60 with a heart rate in the 50s Head: Normocephalic. Eyes: Sclerae nonicteric. Neck: Good carotid upstroke, no bruit, no jugular venous distention. Lungs: Clear to auscultation. Heart: Regular rate and rhythm, S1-S2, no S3, no murmur or rub. Chest wall tenderness reproducing the pain Abdomen: Soft nontender, positive bowel sounds no organomegaly. Extremities: No edema, intact distal pulses. Lab: Troponin less than 0.012. Blood sugar 507, BUN 15, creatinine 0.85. D-dimer 0.63. Lipase 470. PCI negative. EKG shows sinus mechanism with nonspecific ST-T wave changes. Chest x-ray with no acute infiltrates, computed tomography scan of the abdomen showed atherosclerosis. Impression: 1. Chest discomfort, atypical for ischemic heart disease, and a patient with known history of CAD status post CABG. Her symptoms appears to be musculoskeletal in etiology and have been chronic 2. Uncontrolled diabetes mellitus 3. History of hypertension 4. Hyperlipidemia 5. Chronic tobacco use Plan: 1. Continue present medical therapy 2. Obtain an echocardiogram with Doppler 3. Obtain Lexiscan Cardiolite 4. Treatment of diabetes per primary care 5. Smoking cessation. Thank you for this consult we will follow with you. Past Medical History Past Medical History: Chest Pain / Angina, Diabetes Mellitus, GERD/Reflux, Myocardial Infarction ([place]) Additional Past Medical History / Comment(s): Pancreatitis Last Myocardial Infarction Date:: 2002 History of Any Multi-Drug Resistant Organisms: None Reported Past Surgical History: Appendectomy Additional Past Surgical History / Comment(s): Open heart in 2002. bilateral carpal tunnel sx Past Anesthesia/Blood Transfusion Reactions: No Reported Reaction Past Psychological History: No Psychological Hx Reported Smoking Status: Current every day smoker Past Alcohol Use History: None Reported Past Drug Use History: None Reported - Past Family History Mother History Unknown: Yes Medications and Allergies Home Medications Medication Instructions Recorded Confirmed Type Aspirin 325 mg PO HS 09/26/14 08/29/21 History Atorvastatin [Lipitor] 80 mg PO HS 09/26/14 08/29/21 History Escitalopram [Lexapro] 10 mg PO HS 05/15/21 08/29/21 History Isosorbide Mononitrate ER [Imdur] 30 mg PO HS 05/15/21 08/29/21 History Enalapril [Vasotec] 10 mg PO HS 08/29/21 08/29/21 History Furosemide [Lasix] 20 mg PO DAILY PRN 08/29/21 08/29/21 History Insulin Aspart [NovoLOG Flexpen] See Protocol SQ TID-W/MEALS 08/29/21 08/29/21 History Insulin Detemir (Levemir) [Levemir] 40 unit SQ HS 08/29/21 08/29/21 History Nitroglycerin Sl Tabs [Nitrostat] 0.4 mg SUBLINGUAL Q5M PRN 08/29/21 08/29/21 History atenoloL [Tenormin] 50 mg PO HS 08/29/21 08/29/21 History Allergies Allergy/AdvReac Type Severity Reaction Status Date / Time No Known Allergies Allergy Verified 08/29/21 14:41 Physical Exam Vitals: Vital Signs Temp Pulse Pulse Resp BP BP Pulse Ox 08/30/21 02:49 98.2 F 49 L 14 104/64 94 L 08/29/21 20:03 98.6 F 55 L 16 143/66 97 08/29/21 19:29 97.8 F 57 L 18 138/75 94 L 08/29/21 16:46 56 L 16 124/90 95 08/29/21 15:19 58 L 16 127/57 97 08/29/21 12:52 98.5 F 73 20 138/64 99 Intake and Output 08/29/21 08/30/21 08/30/21 22:59 06:59 14:59 Other: # Voids 1 Weight 68.039 kg Results 08/29/21 13:20 08/29/21 13:20 Cardiac Enzymes 08/29/21 08/29/21 08/29/21 Range/Units 13:20 13:20 17:28 AST 18 (14-36) U/L Troponin I <0.012 <0.012 (0.000-0.034) ng/mL 08/29/21 Range/Units 21:06 AST (14-36) U/L Troponin I <0.012 (0.000-0.034) ng/mL Coagulation 08/29/21 Range/Units 13:20 PT 11.6 (9.0-12.0) sec APTT 24.7 (22.0-30.0) sec CBC 08/29/21 Range/Units 13:20 WBC 8.3 (3.8-10.6) k/uL RBC 4.57 (3.80-5.40) m/uL Hgb 14.6 (11.4-16.0) gm/dL Hct 44.5 (34.0-46.0) % Plt Count 225 (150-450) k/uL Comprehensive Metabolic Panel 08/29/21 Range/Units 13:20 Sodium 134 L (137-145) mmol/L Potassium 5.1 (3.5-5.1) mmol/L Chloride 97 L (98-107) mmol/L Carbon Dioxide 25 (22-30) mmol/L BUN 15 (7-17) mg/dL Creatinine 0.85 (0.52-1.04) mg/dL Glucose 507 H* (74-99) mg/dL Calcium 9.8 (8.4-10.2) mg/dL AST 18 (14-36) U/L ALT 20 (4-34) U/L Alkaline Phosphatase 113 (38-126) U/L Total Protein 7.1 (6.3-8.2) g/dL Albumin 4.3 (3.5-5.0) g/dL Current Medications Generic Name Dose Route Start Last Admin Trade Name Freq PRN Reason Stop Dose Admin Acetaminophen 650 mg 08/29/21 16:31 08/29/21 22:28 Acetaminophen Tab 325 Mg Tab PO 650 mg Q6HR PRN Administration Mild Pain or Fever > 100.5 Hydrocodone Bitart/Acetaminophen 1 each 08/29/21 16:31 Hydrocodone/Apap 5-325mg 1 Each Tab PO Q4HR PRN Moderate Pain Al Hydroxide/Mg Hydroxide 15 ml 08/29/21 16:31 Mag Hydrox/Al Hydrox/Simeth 30 Ml Cup PO Q6HR PRN Indigestion Aspirin 325 mg 08/29/21 21:00 08/29/21 22:29 Aspirin 325 Mg Tab PO 325 mg HS ZAY Administration Atenolol 50 mg 08/29/21 21:00 08/29/21 22:29 Atenolol 50 Mg Tab PO 50 mg HS ZAY Administration Atorvastatin Calcium 80 mg 08/29/21 21:00 08/29/21 22:29 Atorvastatin 80 Mg Tab PO 80 mg HS ZAY Administration Escitalopram Oxalate 10 mg 08/29/21 21:00 08/29/21 22:28 Escitalopram 10 Mg Tab PO 10 mg HS ZAY Administration Furosemide 20 mg 08/29/21 16:41 Furosemide 20 Mg Tab PO DAILY PRN Edema Insulin Aspart 0 unit 08/29/21 17:30 08/29/21 22:28 Insulin Aspart (Novolog) 100 Unit/Ml Vial SQ 6 unit ACHS ZAY Administration Protocol Insulin Detemir 20 unit 08/29/21 21:00 08/29/21 22:28 Insulin Detemir (Levemir) 100 Unit/Ml Syr SQ 20 unit HS ZAY Administration Iopamidol 30 ml 08/29/21 16:43 Iopamidol Contrast (Oral Use) Vial PO 08/30/21 16:[address] Scan Isosorbide Mononitrate 30 mg 08/29/21 21:00 08/29/21 22:29 Isosorbide Mononitrate Er 30 Mg Tab.Er.24h PO 30 mg HS ZAY Administration Naloxone HCl 0.2 mg 08/29/21 16:31 Naloxone 0.4 Mg/Ml 1 Ml Vial IV Q2M PRN Opioid Reversal Ondansetron HCl 4 mg 08/29/21 16:31 Ondansetron 4 Mg/2 Ml Vial IVP Q8HR PRN Nausea And Vomiting Intake and Output 08/29/21 08/30/21 08/30/21 22:59 06:59 14:59 Other: # Voids 1 Weight 68.039 kg 08/29/21 13:20 08/29/21 13:20
[2021-08-30 07:30] LABS: Glucose,Whole Blood 185 mg/dL (75-99)
[2021-08-30] MEDS: INSULIN ASPART (NovoLOG) 100 UNIT/ML VIAL SQ SCH ×2 (07:41→12:13)
[2021-08-30 10:57] LABS: Basophils # (A) 0.04 X 10*3/uL (0.00-0.10); Basophils % (A) 0.5 %; Eosinophils # (A) 0.19 X 10*3/uL (0.04-0.35); Eosinophils % (A) 2.3 %; HCT 41.6 % (37.2-46.3); HGB 13.5 g/dL (12.0-15.0); Immature Grans, Automated 0.4 %; Lymphocytes # (A) 3.98 X 10*3/uL (0.90-5.00); Lymphocytes % (A) 48.1 %; MCH 30.5 pg (27.0-32.0); MCHC 32.5 g/dL (32.0-37.0); MCV 93.9 fL (80.0-97.0); Mean Platelet Volume 11.1 fL (9.5-12.2); Monocytes # (A) 0.57 X 10*3/uL (0.20-1.00); Monocytes % (A) 6.9 %; NRBC Per 100 WBC 0 /100 WBCS (0.0-0.0); Neutrophils # (A) 3.46 X 10*3/uL (1.80-7.70); Neutrophils % (A) 41.8 %; Platelet Count 246 X 10*3/uL (140-440); RBC 4.43 X 10*6/uL (4.10-5.20); RDW 12.4 % (11.5-14.5); WBC 8.27 X 10*3/uL (4.50-10.00)
[2021-08-30 11:00] LABS: African American GFR (CKD) 122.8 (60.0-200.0); Albumin 4.1 g/dL (3.8-4.9); Albumin/Globulin Ratio 1.86 (1.60-3.17); Anion Gap 12.2 mmol/L (10.00-18.00); BUN/Creat Ratio 22.2 Ratio (12.00-20.00); Blood Urea Nitrogen 11.1 mg/dL (9.0-27.0); Calcium 9.2 mg/dL (8.7-10.3); Carbon Dioxide 22.8 mmol/L (20.0-27.5); Globulin 2.2 g/dL (1.6-3.3); Non-African American GFR(CKD) 105.9 (60.0-200.0); Potassium 4.6 mmol/L (3.5-5.5); Total Bilirubin 0.3 mg/dL (0.30-1.20); Total Protein 6.3 g/dL (6.2-8.2)
[2021-08-30 11:37] LABS: Glucose,Whole Blood 389 mg/dL (75-99)
--- NOTE | 2021-08-30 11:40 | NM ---
EXAMINATION TYPE: NM stress lexiscan cardiolite DATE OF EXAM: 08/30/2021 COMPARISON: NONE HISTORY: Chest pain TECHNIQUE: After the intravenous administration of 9.8 mCi Tc 99m Sestamibi - Cardiolite resting SPE CT images acquired 65 minutes post injection. The patient received 0.4mg Lexiscan, 25.6 mCi Tc 99m Sestamibi - Stress images obtained [address] injection FINDINGS: Review of stress and rest SPECT images demonstrates small fixed defect involving the inferior apical portion of the myocardium. Tiny area of inferior lateral reversible ischemia not excluded.. Gated an alysis shows normal wall motion with an estimated left ventricular ejection fraction of 69 %. IMPRESSION: 1. Small fixed defect involving the apex. Suggestion of a tiny area of reversibility ischemia involvi ng the inferolateral myocardium which may be artifactual correlate clinically. 2. Ejection fraction 69%..
--- NOTE | 2021-08-30 12:23 | ECHOF ---
Referral Reason:cad MEASUREMENTS -------- HEIGHT: 149.9 cm WEIGHT: 68.0 kg BP: 104/64 RVIDd: 3.1 cm (< 3.3) IVSd: 1.1 cm (0.6 - 1.1) LVIDd: 4.4 cm (3.9 - 5.3) LVPWd: 1.0 cm (0.6 - 1.1) IVSs: 1.6 cm LVIDs: 2.7 cm LVPWs: 1.5 cm LA Diam: 2.8 cm (2.7 - 3.8) LAESV Index (A-L): 23.25 ml/m Ao Diam: 2.7 cm (2.0 - 3.7) AV Cusp: 1.8 cm (1.5 - 2.6) MV EXCURSION: 14.577 mm (> 18.000) MV EF SLOPE: 132 mm/s (70 - 150) EPSS: 0.4 cm MV E Az: 1.08 m/s MV DecT: 209 ms MV A Az: 0.41 m/s MV E/A Ratio: 2.66 RAP: 5.00 mmHg RVSP: 19.65 mmHg FINDINGS -------- Sinus rhythm. This was a technically adequate study. The left ventricular size is normal. There is borderline concentric left ventricular hypertrophy. Overall left ventricular systolic function is normal with, an EF between 55 - 60 %. The diastolic filling pattern is normal for the age of the patient 15.01. The right ventricle is normal in size. Normal LA size by volume 22+/-6 ml/m2. The right atrial size is normal. Interatrial and interventricular septum intact. The aortic valve is trileaflet, and appears structurally normal. No aortic stenosis or regurgitation. The mitral valve is normal. Mild mitral regurgitation is present. The tricuspid valve appears structurally normal. Mild tricuspid regurgitation present. Right vent ricular systolic pressure is normal at < 35 mmHg. The right ventricular systolic pressure, as measu red by Doppler, is 19.65mmHg. Trace/mild (physiologic) pulmonic regurgitation. The aortic root size is normal. IVC Not well visulized. There is no pericardial effusion. CONCLUSIONS -------- 1. There is borderline concentric left ventricular hypertrophy. 2. Overall left ventricular systolic function is normal with, an EF between 55 - 60 %. 3. Normal LA size by volume 22+/-6 ml/m2. 4. The aortic valve is trileaflet, and appears structurally normal. No aortic stenosis or regurgitati on. 5. Mild mitral regurgitation is present. 6. Mild tricuspid regurgitation present. 7. Trace/mild (physiologic) pulmonic regurgitation. 8. There is no pericardial effusion. WIRED MUSIC OPERATOR: Jennie Sanchez RDCS
--- NOTE | 2021-08-30 13:21 | P.PN ---
Subjective Progress Note Date: 08/30/21 Principal diagnosis: Patient continues to have epigastric pain and tenderness 61-year-old female with past medical history of hypertension diabetes admitted to the hospital with epigastric pain and chest pain according the patient this has been going for a few years but has been getting worse over the last few weeks patient states that she went to multiple hospitals before for this and she still doesn't know exactly what she is having abdominal pain but states that in the last few days has been getting worse Review of systems and systems has been reviewed all negative and positive findings as per history of present illness Constitutional: No acute distress, conversant, pleasant Eyes: Anicteric sclerae, moist conjunctiva, no lid-lag PERRLA ENMT: NC/AT Oropharynx clear, no erythema, exudates Neck: Supple, FROM, no masses, or JVD No carotid bruits No thyromegaly Lungs: Clear to auscultation Clear to percussion Normal respiratory effort, no accessory muscle use Cardiovascular: Heart regular in rate and rhythm, No murmurs, gallops, or rubs No peripheral edema Abdominal: Soft Nontender, no guarding, rebound or rigidity Abdomen moving with respiration Normoactive bowel sounds No hepatomegaly, No splenomegaly No palpable mass No abdominal wall hernia noted epigastric tenderness Skin: Normal temperature, tone, texture, turgor No induration No subcutaneous nodules No rash, lesions No ulcers Extremities: No digital cyanosis No clubbing Pedal pulses intact and symmetrical Radial pulses intact and symmetrical Normal gait and station No calf tenderness Psychiatric:Alert and oriented to person, place and time Appropriate affect Intact judgement Neuro: Muscles Strength 5/5 in all 4 extremities Sensation to light touch grossly present throughout Cranial nerves II-XII grossly intact No focal sensory deficits Epigastric pain exact etiology not clear with some elevation lipase likely mild pancreatitis the patient denies drinking at this time We'll check computed tomography scan of the abdomen and pelvis Question about chest pain we'll check cardiac enzymes will consult cardiology Diabetes uncontrolled but the patient on sliding scale insulin Obesity Pending stress test today We'll also continue to monitor overnight Objective - Vital Signs Vital signs: Vital Signs Temp 97.6 F 08/30/21 07:00 Pulse 65 08/30/21 07:00 Resp 16 08/30/21 07:00 BP 111/64 08/30/21 07:00 Pulse Ox 96 08/30/21 07:00 Intake & Output 08/29/21 08/30/21 08/30/21 18:59 06:59 18:59 Intake Total 118 Balance 118 Weight 68.039 kg 68.04 kg Intake: Oral 118 Other: Voiding Method Toilet # Voids 1 - Labs CBC & Chem 7: 08/30/21 06:06 08/30/21 06:06 Labs: Abnormal Lab Results - Last 24 Hours (Table) 08/29/21 08/29/21 08/29/21 Range/Units 13:20 13:20 15:12 D-Dimer 0.63 H (<0.60) mg/L FEU Sodium 134 L (137-145) mmol/L Chloride 97 L (98-107) mmol/L Creatinine (0.6-1.5) mg/dL BUN/Creatinine Ratio (12.00-20.00) Ratio Glucose 507 H* (74-99) mg/dL POC Glucose (mg/dL) 461 H (75-99) mg/dL Magnesium 1.4 L (1.6-2.3) mg/dL AST (13-35) U/L Lipase 470 H (23-300) U/L Urine Glucose (UA) (Negative) 08/29/21 08/29/21 08/29/21 Range/Units 15:19 16:49 17:54 D-Dimer (<0.60) mg/L FEU Sodium (137-145) mmol/L Chloride (98-107) mmol/L Creatinine (0.6-1.5) mg/dL BUN/Creatinine Ratio (12.00-20.00) Ratio Glucose (74-99) mg/dL POC Glucose (mg/dL) 416 H 371 H (75-99) mg/dL Magnesium (1.6-2.3) mg/dL AST (13-35) U/L Lipase (23-300) U/L Urine Glucose (UA) 4+ H (Negative) 08/29/21 08/30/21 08/30/21 Range/Units 21:39 06:06 07:28 D-Dimer (<0.60) mg/L FEU Sodium (137-145) mmol/L Chloride (98-107) mmol/L Creatinine 0.5 L (0.6-1.5) mg/dL BUN/Creatinine Ratio 22.20 H (12.00-20.00) Ratio Glucose 171 H (74-99) mg/dL POC Glucose (mg/dL) 335 H 185 H (75-99) mg/dL Magnesium (1.6-2.3) mg/dL AST 10 L (13-35) U/L Lipase (23-300) U/L Urine Glucose (UA) (Negative) 08/30/21 Range/Units 11:35 D-Dimer (<0.60) mg/L FEU Sodium (137-145) mmol/L Chloride (98-107) mmol/L Creatinine (0.6-1.5) mg/dL BUN/Creatinine Ratio (12.00-20.00) Ratio Glucose (74-99) mg/dL POC Glucose (mg/dL) 389 H (75-99) mg/dL Magnesium (1.6-2.3) mg/dL AST (13-35) U/L Lipase (23-300) U/L Urine Glucose (UA) (Negative)
[2021-08-30 14:14] VITALS: BP 137/76; PULSE 55; RESP 18; TEMP 97.4
--- NOTE | 2021-08-30 14:28 | EST ---
EXERCISE STRESS AGE: 61 SEX: F HT: 4'11" WT: 150 lbs. PROTOCOL: Lexiscan STAGE: NA DURATION OF EXERCISE: NA HEART RATE REST: 53 BLOOD PRESSURE REST: 110/64 MAXIMUM HEART RATE ACHIEVED: 84 MAXIMUM BLOOD PRESSURE: 130/72 85% MPHR: 137 100% MPHR: 161 METS: NA INDICATIONS: Chest pain CLINICAL INFORMATION: Baseline rhythm is sinus mechanism, rate 53, normal axis and intervals, nonspecific ST- T wave changes. Baseline blood pressure 110/64 mmHg. Patient received an injection of Lexiscan. Electrocardiographic monitoring revealed no evidence of diagnostic ischemic ST deviation. Cardiolite was injected per protocol. CONCLUSION: 1. Nondiagnostic electrocardiograph stress testing. 2. Nuclear images will be reported separately. MMODL / IJN: [id number] /
--- NOTE | 2021-08-30 15:13 | P.DS ---
Providers Date of admission: 08/29/21 16:46 Expected date of discharge: 08/30/21 Attending physician: Hay Black MD Consults: 08/29/21 16:33 Consult Physician Routine Consulting Provider: Rohini Lal Consult Reason/Comments: chest pain Do you want consulting provider notified?: Yes Primary care physician: Cedrick [facility] Course: 61-year-old female admitted to the hospital with a big gastric and question about chest pain continue have some tenderness in the epigastric region computed tomography scan of the abdomen did not show any abnormalities patient underwent stress test And was cleared from cardiology to be discharged home to follow-up with cardiology Constitutional: No acute distress, conversant, pleasant Eyes: Anicteric sclerae, moist conjunctiva, no lid-lag PERRLA ENMT: NC/AT Oropharynx clear, no erythema, exudates Neck: Supple, FROM, no masses, or JVD No carotid bruits No thyromegaly Lungs: Clear to auscultation Clear to percussion Normal respiratory effort, no accessory muscle use Cardiovascular: Heart regular in rate and rhythm, No murmurs, gallops, or rubs No peripheral edema Abdominal: Soft Nontender, no guarding, rebound or rigidity Abdomen moving with respiration Normoactive bowel sounds No hepatomegaly, No splenomegaly No palpable mass No abdominal wall hernia noted Skin: Normal temperature, tone, texture, turgor No induration No subcutaneous nodules No rash, lesions No ulcers Extremities: No digital cyanosis No clubbing Pedal pulses intact and symmetrical Radial pulses intact and symmetrical Normal gait and station No calf tenderness Psychiatric:Alert and oriented to person, place and time Appropriate affect Intact judgement Neuro: Muscles Strength 5/5 in all 4 extremities Sensation to light touch grossly present throughout Cranial nerves II-XII grossly intact No focal sensory deficits Epigastric pain likely GERD and musculoskeletal in origin patient to follow-up with family physician for possible follow-up with GI for possible EGD as an outpatient Diabetes Hypertension Patient Condition at Discharge: Stable Plan - Discharge Summary New Discharge Prescriptions: New Pantoprazole Sodium [Protonix] 40 mg PO BID 30 Days #60 tab Continue Atorvastatin [Lipitor] 80 mg PO HS Aspirin 325 mg PO HS Isosorbide Mononitrate ER [Imdur] 30 mg PO HS atenoloL [Tenormin] 50 mg PO HS Insulin Detemir (Levemir) [Levemir] 40 unit SQ HS Insulin Aspart [NovoLOG Flexpen] See Protocol SQ TID-W/MEALS Escitalopram [Lexapro] 10 mg PO HS Nitroglycerin Sl Tabs [Nitrostat] 0.4 mg SUBLINGUAL Q5M PRN PRN Reason: Chest Pain Furosemide [Lasix] 20 mg PO DAILY PRN PRN Reason: Edema Enalapril [Vasotec] 10 mg PO HS Discharge Medication List Aspirin 325 mg PO HS 09/26/14 [History] Atorvastatin [Lipitor] 80 mg PO HS 09/26/14 [History] Escitalopram [Lexapro] 10 mg PO HS 05/15/21 [History] Isosorbide Mononitrate ER [Imdur] 30 mg PO HS 05/15/21 [History] Enalapril [Vasotec] 10 mg PO HS 08/29/21 [History] Furosemide [Lasix] 20 mg PO DAILY PRN 08/29/21 [History] Insulin Aspart [NovoLOG Flexpen] See Protocol SQ TID-W/MEALS 08/29/21 [History] Insulin Detemir (Levemir) [Levemir] 40 unit SQ HS 08/29/21 [History] Nitroglycerin Sl Tabs [Nitrostat] 0.4 mg SUBLINGUAL Q5M PRN 08/29/21 [History] atenoloL [Tenormin] 50 mg PO HS 08/29/21 [History] Pantoprazole Sodium [Protonix] 40 mg PO BID 30 Days #60 tab 08/30/21 [Rx] Follow up Appointment(s)/Referral(s): Cedrick Flores MD [Primary Care Provider] - 1-2 days Eliazar Artis MD [STAFF PHYSICIAN] - 09/09/21 10:45 am Discharge Disposition: HOME SELF-CARE
[2021-08-30] MEDS ORDERED: ASPIRIN 81 MG PO SCH (21:00)
== END 2021-08-30 16:46 | disposition home or self-care (01) ==
LOC: EC 12:50 → 6NMEDSUR 16:46
PROVIDERS: ADMIT Internal Medicine; ATTEND Internal Medicine
DX: R07.89 Other chest pain (principal); R10.13 Epigastric pain; E11.65 Type 2 diabetes mellitus with hyperglycemia; I11.9 Hypertensive heart disease without heart failure; K21.9 Gastro-esophageal reflux disease without esophagitis; I08.1 Rheumatic disorders of both mitral and tricuspid valves; I25.10 Atherosclerotic heart disease of native coronary artery without angina pectoris; R74.8 Abnormal levels of other serum enzymes; E78.5 Hyperlipidemia, unspecified; I25.2 Old myocardial infarction; I45.10 Unspecified right bundle-branch block; K57.90 Diverticulosis of intestine, part unspecified, without perforation or abscess without bleeding; N20.0 Calculus of kidney; F17.200 Nicotine dependence, unspecified, uncomplicated; E66.9 Obesity, unspecified; Z68.30 Body mass index [BMI] 30.0-30.9, adult; Z20.822 Contact with and (suspected) exposure to COVID-19; Z79.82 Long term (current) use of aspirin; Z79.899 Other long term (current) drug therapy; Z79.4 Long term (current) use of insulin; Z90.49 Acquired absence of other specified parts of digestive tract; Z87.19 Personal history of other diseases of the digestive system; Z98.890 Other specified postprocedural states; Z95.1 Presence of aortocoronary bypass graft; Z71.6 Tobacco abuse counseling
CPT/HCPCS: 96361 ×2; 96376; 96374; 99285; 36415; 93005; 93017; 93306; 85379; 80053 ×2; 82009; 83690; 83735; 84484; 85025 ×2; 85610; 85730; 81003; 87635; 71046; 74178; 78452; G0378 ×2; A9500; J1170 ×2; J2785; Q9967

== ENCOUNTER 2022-04-08 21:23 | Emergency (ER) | payer BC, MEDICARE ==
[2022-04-08 21:52] VITALS: BP 169/89; PULSE 70; RESP 20; TEMP 98.2
[2022-04-08] MEDS ORDERED: SODIUM CHLORIDE 0.9% 1,000 ML IV STA (22:32)
[2022-04-08] MEDS ORDERED: ONDANSETRON 4 MG/2 ML VIAL IVP STA (22:36)
[2022-04-08 23:05] LABS: Basophils % (A) 0 %; Eosinophils # (A) 0.1 k/uL (0-0.7); Eosinophils % (A) 1 %; HCT 39.9 % (34.0-46.0); HGB 12.8 gm/dL (11.4-16.0); Lymphocytes # (A) 3.8 k/uL (1.0-4.8); Lymphocytes % (A) 42 %; MCH 30.9 pg (25.0-35.0); MCV 96.6 fL (80.0-100.0); Mean Platelet Volume 9.1; Monocytes # (A) 0.4 k/uL (0-1.0); Monocytes % (A) 4 %; Neutrophils # (A) 4.6 k/uL (1.3-7.7); Neutrophils % (A) 50 %; Platelet Count 207 k/uL (150-450); RBC 4.13 m/uL (3.80-5.40); RDW 13.2 % (11.5-15.5); WBC 9.1 k/uL (3.8-10.6)
[2022-04-08 23:18] LABS: ALT 19 U/L (4-34); AST 17 U/L (14-36); African American GFR (CKD) >90 (>60 ml/min/1.73 sqM); Albumin 4.1 g/dL (3.5-5.0); Alkaline Phosphatase 165 U/L (38-126); Anion Gap 11 mmol/L; Blood Urea Nitrogen 14 mg/dL (7-17); Calcium 9.1 mg/dL (8.4-10.2); Carbon Dioxide 23 mmol/L (22-30); Chloride 102 mmol/L (98-107); Glucose 436 mg/dL (74-99); Lipase 337 U/L (23-300); Non-African American GFR(CKD) >90 (>60 ml/min/1.73 sqM); Potassium 4.1 mmol/L (3.5-5.1); Sodium 136 mmol/L (137-145); Total Bilirubin 0.3 mg/dL (0.2-1.3); Total Protein 6.3 g/dL (6.3-8.2)
--- NOTE | 2022-04-08 23:34 | US ---
EXAMINATION TYPE: US pelvic complete DATE OF EXAM: 04/08/2022 COMPARISON: 03/16/2020 CLINICAL HISTORY: vaginal bleeding. vaginal bleeding x 2. . LMP 30 years ago TECHNIQUE: . Transabdominal sonographic images of the pelvis were acquired. Date of LMP: 30 years ago EXAM MEASUREMENTS: Uterus: 7.5 x 4.9 x 2.8 cm Endometrial Stripe: 0.45 cm Right Ovary: 1.5 x 1.6 x 1.3 cm Left Ovary: 1.6 x 2.0 x 0.9 cm 1. Uterus: Anteverted wnl 2. Endometrium: wnl 3. Right Ovary: wnl 4. Left Ovary: wnl Spectral, color and waveform doppler imaging shows good arterial and venous flow within the ovaries ; there is no evidence for ovarian torsion. 5. Bilateral Adnexa: wnl 6. Posterior cul-de-sac: wnl IMPRESSION: Normal uterus and endometrium. No evidence of ovarian torsion. No adverse change.
[2022-04-08 23:47] LABS: Uric Acid 3.8 mg/dL (3.7-7.4)
--- NOTE | 2022-04-08 23:58 | ED ---
Female Urogenital HPI - General Chief complaint: Vaginal Bleeding Stated complaint: SOB,Bleeding Time Seen by Provider: 04/08/22 22:23 Source: patient Mode of arrival: ambulatory Limitations: no limitations - History of Present Illness Initial comments: Patient is a 62 year-old female with a past medical history of diabetes, myocardial infarction, GERD, pancreatitis who presents to the emergency department with a chief complaint of vaginal bleeding. Patient states symptoms have been occurring for the past few days. Patient states when she coughs or moves she has more vaginal bleeding. States she has been wearing depends which she changes once a day. Reports intermittent lower abdominal cramps. Has not taken any medication for pain. Has no pain currently. Also reports mild nausea without vomiting. Denies fever, chills, shortness of breath, lightheadedness, dizziness, chest pain, blood in urine, blood in stool, burning with urination, v aginal discharge. Denies history of GI bleed. Patient states she has not had a menstrual period since she gave to her son 30 years ago. She denies history of tobacco use. She denies family history of ovarian and uterine cancer. Does not know when her last Pap smear was or what her most recent Pap smear results were. - Related Data Home Medications Medication Instructions Recorded Confirmed Aspirin 325 mg PO HS 09/26/14 08/29/21 Atorvastatin [Lipitor] 80 mg PO HS 09/26/14 08/29/21 Escitalopram [Lexapro] 10 mg PO HS 05/15/21 08/29/21 Isosorbide Mononitrate ER [Imdur] 30 mg PO HS 05/15/21 08/29/21 Enalapril [Vasotec] 10 mg PO HS 08/29/21 08/29/21 Furosemide [Lasix] 20 mg PO DAILY PRN 08/29/21 08/29/21 Insulin Aspart [NovoLOG Flexpen] See Protocol SQ TID-W/MEALS 08/29/21 08/29/21 Insulin Detemir (Levemir) [Levemir] 40 unit SQ HS 08/29/21 08/29/21 Nitroglycerin Sl Tabs [Nitrostat] 0.4 mg SUBLINGUAL Q5M PRN 08/29/21 08/29/21 atenoloL [Tenormin] 50 mg PO HS 08/29/21 08/29/21 Previous Rx's Medication Instructions Recorded Pantoprazole Sodium [Protonix] 40 mg PO BID 30 Days #60 tab 08/30/21 Allergies Allergy/AdvReac Type Severity Reaction Status Date / Time No Known Allergies Allergy Verified 08/29/21 14:41 Review of Systems ROS Statement: Those systems with pertinent positive or pertinent negative responses have been documented in the HPI. ROS Other: All systems not noted in ROS Statement are negative. Past Medical History Past Medical History: Chest Pain / Angina, Diabetes Mellitus, GERD/Reflux, Myocardial Infarction (ID) Additional Past Medical History / Comment(s): Pancreatitis Last Myocardial Infarction Date:: 2002 History of Any Multi-Drug Resistant Organisms: None Reported Past Surgical History: Appendectomy Additional Past Surgical History / Comment(s): Open heart in 2002. bilateral carpal tunnel sx Past Anesthesia/Blood Transfusion Reactions: No Reported Reaction Past Psychological History: No Psychological Hx Reported Smoking Status: Current every day smoker Past Alcohol Use History: None Reported Past Drug Use History: None Reported - Past Family History Mother History Unknown: Yes General Exam Limitations: no limitations General appearance: alert, in no apparent distress Head exam: Present: atraumatic, normocephalic, normal inspection Respiratory exam: Present: normal lung sounds bilaterally. Absent: respiratory distress, wheezes, rales, rhonchi, stridor Cardiovascular Exam: Present: regular rate, normal rhythm, normal heart sounds. Absent: systolic murmur, diastolic murmur, rubs, gallop, clicks GI/Abdominal exam: Present: soft, normal bowel sounds. Absent: distended, tenderness, guarding, rebound, rigid Rectal exam: Present: normal inspection, other (no blood in rectal area ) Speculum exam: Present: normal speculum exam. Absent: vaginal discharge, cervical discharge, vaginal bleeding Neurological exam: Present: alert, oriented X3, CN II-XII intact Psychiatric exam: Present: normal affect, normal mood Skin exam: Present: warm, dry, intact, normal color. Absent: rash Course Vital Signs 04/08/22 21:49 Temperature 98.2 F Pulse Rate 70 Respiratory 20 Rate Blood Pressure 169/89 O2 Sat by Pulse 96 Oximetry Medical Decision Making - Medical Decision Making This is a 62-year-old female who presents with vaginal bleeding.Vitals stable. Speculum exam performed. I do not see any evidence of bleeding. Patient adamant that bleeding is vaginal. I did notice remanence of blood over the inner thighs. Laboratory studies obtained. Hemoglobin is normal at 12.8 .Pelvic ultrasound obtained which shows a normal uterus with normal endometrium and endometrial stripe. Results discussed with patient. At this time there are no diagnostic studies to explain patient's symptoms. Gynecological follow-up is very important. This was discussed with patient. 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 She will follow-up [facility]. Return parameters discussed. Dr. Cervantes is my attending. - Lab Data Result diagrams: 04/08/22 22:56 04/08/22 22:56 Lab Results 04/08/22 04/08/22 04/08/22 Range/Units 22:56 22:56 22:56 WBC 9.1 (3.8-10.6) k/uL RBC 4.13 (3.80-5.40) m/uL Hgb 12.8 (11.4-16.0) gm/dL Hct 39.9 (34.0-46.0) % MCV 96.6 (80.0-100.0) fL MCH 30.9 (25.0-35.0) pg MCHC 32.0 (31.0-37.0) g/dL RDW 13.2 (11.5-15.5) % Plt Count 207 (150-450) k/uL MPV 9.1 Neutrophils % 50 % Lymphocytes % 42 % Monocytes % 4 % Eosinophils % 1 % Basophils % 0 % Neutrophils # 4.6 (1.3-7.7) k/uL Lymphocytes # 3.8 (1.0-4.8) k/uL Monocytes # 0.4 (0-1.0) k/uL Eosinophils # 0.1 (0-0.7) k/uL Basophils # 0.0 (0-0.2) k/uL Sodium 136 L (137-145) mmol/L Potassium 4.1 (3.5-5.1) mmol/L Chloride 102 (98-107) mmol/L Carbon Dioxide 23 (22-30) mmol/L Anion Gap 11 mmol/L BUN 14 (7-17) mg/dL Creatinine 0.59 (0.52-1.04) mg/dL Est GFR (CKD-EPI)AfAm >90 (>60 ml/min/1.73 sqM) Est GFR (CKD-EPI)NonAf >90 (>60 ml/min/1.73 sqM) Glucose 436 H (74-99) mg/dL Uric Acid 3.8 (3.7-7.4) mg/dL Calcium 9.1 (8.4-10.2) mg/dL Total Bilirubin 0.3 (0.2-1.3) mg/dL AST 17 (14-36) U/L ALT 19 (4-34) U/L Alkaline Phosphatase 165 H (38-126) U/L Total Protein 6.3 (6.3-8.2) g/dL Albumin 4.1 (3.5-5.0) g/dL Triglycerides 174.00 H (0.00-149.00) mg/dL Cholesterol 127.00 (0.00-200.00) mg/dL LDL Cholesterol, Calc 53.5 (0.0-131.0) mg/dL VLDL Cholesterol, Calc 34.80 (5.00-40.00) mg/dL HDL Cholesterol 38.70 L (40.00-60.00) mg/dL Cholesterol/HDL Ratio 3.28 Ratio Lipase 337 H (23-300) U/L Vitamin D 25-Hydroxy 12.4 L (30.0-100.0) ng/mL TSH 0.960 (0.465-4.680) mIU/L Free T4 1.26 (0.78-2.19) ng/dL Blood Type O Positive Blood Type Recheck O Pos Bld Type Recheck Status No Antibody Screen NEGATIVE Spec Expiration Date 04/11/20222355 Disposition Clinical Impression: Dysfunctional uterine bleeding Disposition: HOME SELF-CARE Condition: Good Instructions (If sedation given, give patient instructions): Abnormal (Dysfunctional) Uterine Bleeding (ED) Additional Instructions: Please follow-up with hand inserter operator in 1-2 days. Return to the emergency department if you experience new, concerning, or worsening symptoms, including but not limited to increased bleeding, lightheadedness, dizziness, or shortness of breath. Is patient prescribed a controlled substance at d/c from ED?: No Referrals: Cedrick Flores MD [Primary Care Provider] - 1-2 days Sylvia Lawson DO [Doctor of Osteopathic Medicine] - 1-2 days
[2022-04-09 00:04] LABS: T4, Free (Free Thyroxine) 1.26 ng/dL (0.78-2.19)
[2022-04-09 09:51] LABS: Chol/HDL Ratio 3.28 Ratio; LDL Cholesterol,Calculated 53.5 mg/dL (0.0-131.0)
== END 2022-04-09 00:42 | disposition home or self-care (01) ==
LOC: EC 21:23
DX: N93.8 Other specified abnormal uterine and vaginal bleeding (principal); E11.9 Type 2 diabetes mellitus without complications; K21.9 Gastro-esophageal reflux disease without esophagitis; I25.2 Old myocardial infarction; F17.200 Nicotine dependence, unspecified, uncomplicated; Z79.82 Long term (current) use of aspirin; Z79.4 Long term (current) use of insulin; Z79.899 Other long term (current) drug therapy
CPT/HCPCS: 86900; 86901; 84439; 80053; 80061; 83690; 84443; 84550; 85025; 86850; 82306; 93975; 76856; 99285; 96374; 96361; J2405

== ENCOUNTER → 2023-04-03 | Outpatient (CLI) | payer MEDICARE ==
[2023-04-03 11:23] LABS: African American GFR (CKD) >90 (>60 ml/min/1.73 sqM); Blood Urea Nitrogen 15 mg/dL (7-17); Non-African American GFR(CKD) >90 (>60 ml/min/1.73 sqM)
--- NOTE | 2023-04-03 12:13 | CT ---
EXAMINATION TYPE: CT chest w con DATE OF EXAM: 04/03/2023 COMPARISON: CTA chest on 05/15/2021. HISTORY: f/u lung nodule CT DLP: 414 mGycm Automated exposure control for dose reduction was used. TECHNIQUE: CT scan of the chest is performed with IV Contrast, patient injected with 100ml mL of Isovue 300. [place] P Images are created on CT scanner and reviewed. 3D reconstructed images are created on an [employer] workstation and reviewed. FINDINGS: CHEST WALL: There is a soft tissue nodule in the subcutaneous tissues of the right upper back measuri ng 1.8 cm in diameter Mediastinum and Lucia: There is no axillary, mediastinal or hilar lymphadenopathy. Pleural and Pericardial spaces: There are no pleural or pericardial effusions. Upper Abdomen: The visualized upper abdomen is unremarkable. Cardiovascular: There is mild vascular calcification throughout the thoracic aorta without evidence o f aneurysmal dilation or dissection. There are midline sternotomy wires with surgical changes as prio r CABG. Lung Parenchyma and Airways: The lungs are clear. Bones: No fracture or aggressive osseous lesion. IMPRESSION: 1. No acute abnormality in the chest. 2. No suspicious pulmonary nodules. 3. Additional findings as above.
== END | disposition home or self-care (01) ==
LOC: RADCTMAIN 10:09
PROVIDERS: ATTEND Family Medicine
DX: R91.1 Solitary pulmonary nodule (principal); E13.42 Other specified diabetes mellitus with diabetic polyneuropathy; Z95.1 Presence of aortocoronary bypass graft
CPT/HCPCS: 82565; 84520; 71260; 36415; Q9967

== ENCOUNTER 2023-06-11 18:36 | Emergency (ER) | payer MEDICARE ==
[2023-06-11 18:53] VITALS: TEMP 98.2
--- NOTE | 2023-06-11 18:57 | ED ---
Abdominal Pain HPI - General Source: patient Mode of arrival: wheelchair Limitations: no limitations <Mor Lamas - Last Filed: 06/11/23 18:57> - General Source: patient, RN notes reviewed, old records reviewed <Virgil Gustafson - Last Filed: 06/12/23 07:47> - General Chief Complaint: Abdominal Pain Stated Complaint: epigastric pain - History of Present Illness Initial Comments: 63-year-old female presented to the ED with a chief complaint of abdominal pain. Patient states for the past 2 weeks has had upper abdominal pain. States has tried [id number] medications however this has not helped her prompted presentation to the ED for further evaluation. (Mor Lamas) Patient is a 63-year-old female who presented to the emergency Department complaining of abdominal pain. Has a history of pancreatitis. His cardiac history as well. States is been ongoing for the last 2 week. Endorses mild nausea but no emesis. Describes the pain as achy and sharp in the epigastric region and right upper quadrant. No other acute complaints at this time. Presents for further evaluation of the pain is not improved. No known palliative or provocative factors. No shortness of breath. No chest pain. No urinary complaints pain to patient. No diarrhea. No emesis.Patient initially evaluated as a quick note. (Virgil Gustafson) - Related Data Home Medications Medication Instructions Recorded Confirmed Aspirin 325 mg PO HS 09/26/14 08/29/21 Atorvastatin [Lipitor] 80 mg PO HS 09/26/14 08/29/21 Escitalopram [Lexapro] 10 mg PO HS 05/15/21 08/29/21 Isosorbide Mononitrate ER [Imdur] 30 mg PO HS 05/15/21 08/29/21 Enalapril [Vasotec] 10 mg PO HS 08/29/21 08/29/21 Furosemide [Lasix] 20 mg PO DAILY PRN 08/29/21 08/29/21 Insulin Aspart [NovoLOG Flexpen] See Protocol SQ TID-W/MEALS 08/29/21 08/29/21 Insulin Detemir (Levemir) [Levemir] 40 unit SQ HS 08/29/21 08/29/21 Nitroglycerin Sl Tabs [Nitrostat] 0.4 mg SUBLINGUAL Q5M PRN 08/29/21 08/29/21 atenoloL [Tenormin] 50 mg PO HS 08/29/21 08/29/21 Previous Rx's Medication Instructions Recorded Pantoprazole Sodium [Protonix] 40 mg PO BID 30 Days #60 tab 08/30/21 Allergies Allergy/AdvReac Type Severity Reaction Status Date / Time No Known Allergies Allergy Verified 06/11/23 18:52 Review of Systems ROS Other: All systems not noted in ROS Statement are negative. <Mor Lamas - Last Filed: 06/11/23 18:57> ROS Other: All systems not noted in ROS Statement are negative. <Virgil Gustafson - Last Filed: 06/12/23 07:47> ROS Statement: Those systems with pertinent positive or pertinent negative responses have been documented in the HPI. Review of Systems: CONST: Denies fever EYES: Denies blurry vision ENT: Denies nasal congestion C/V: Denies Chest pain RESP: Denies shortness of breath GI: Endorses abdominal pain : Denies dysuria SKIN: Denies rash. MSK: Denies joint pain. NEURO: Denies headache (Virgil Gustafson) Past Medical History Past Medical History: Chest Pain / Angina, Diabetes Mellitus, GERD/Reflux, Myocardial Infarction (MS) Additional Past Medical History / Comment(s): Pancreatitis Last Myocardial Infarction Date:: 2002 History of Any Multi-Drug Resistant Organisms: None Reported Past Surgical History: Appendectomy Additional Past Surgical History / Comment(s): Open heart in 2002. bilateral carpal tunnel sx Past Anesthesia/Blood Transfusion Reactions: No Reported Reaction Past Psychological History: No Psychological Hx Reported Smoking Status: Current every day smoker Past Alcohol Use History: None Reported Past Drug Use History: None Reported - Past Family History Mother History Unknown: Yes <Mor Lamas - Last Filed: 06/11/23 18:57> General Exam Limitations: no limitations <Mor Lamas - Last Filed: 06/11/23 18:57> <Virgil Gustafson - Last Filed: 06/12/23 07:47> - General Exam Comments Initial Comments: General: Appears in no acute distress. HEAD: Normal with no signs of head trauma. EYES: PERRLA, EOMI, conjunctiva normal, no discharge. ENT: Hearing grossly intact, normal oropharynx. RESPIRATORY: Clear breath sounds bilaterally. No wheezes, rales, or rhonchi. C/V: Regular rate and rhythm. S1 and S2 auscultated, no edema, peripheral pulses 2+ and intact throughout ABD: Abdomen soft, nondistended. Tender to palpation epigastric region. No guarding. No rebound tenderness. No peritoneal signs. EXT: Normal range of motion, no obvious deformity SKIN: No rashes or lesions observed on exposed skin. NEURO: Alert and oriented x 4. Cranial nerves II-XII intact. No focal sensory or strength deficits. (Virgil Gustafson) Course Vital Signs 06/11/23 06/11/23 06/12/23 18:49 23:24 00:31 Temperature 98.2 F Pulse Rate 68 81 66 Respiratory 16 22 18 Rate Blood Pressure 173/92 117/67 139/82 O2 Sat by Pulse 97 96 98 Oximetry 06/12/23 03:37 Temperature Pulse Rate 68 Respiratory 18 Rate Blood Pressure 148/73 O2 Sat by Pulse 95 Oximetry Medical Decision Making <Mor Lamas - Last Filed: 06/11/23 18:57> - Lab Data Result diagrams: 06/11/23 20:14 06/11/23 20:14 - EKG Data -: EKG Interpreted by Ak <Virgil Gustafson - Last Filed: 06/12/23 07:47> - Medical Decision Making Quicknote portion performed. Signed Mor Lamas PA-C (Mor Lamas) Was pt. sent in by a medical professional or institution (JITENDRA Munoz, ADDICTION SOCIAL WORKER, urgent care, hospital, or detention...) When possible be specific @ -No Did you speak to anyone other than the patient for history (EMS, parent, family, police, friend...)? What history was obtained from this source @ -No Did you review nursing and triage notes (agree or disagree)? Why? @ -I reviewed and agree with nursing and triage notes Were old charts reviewed (outside hosp., previous admission, EMS record, old EKG, old radiological studies, urgent care reports/EKG's, detention records)? Report findings @ -No old charts were reviewed Differential Diagnosis (chest pain, altered mental status, abdominal pain women, abdominal pain men, vaginal bleeding, weakness, fever, dyspnea, syncope, headache, dizziness, GI bleed, back pain, seizure, CVA, palpatations, mental health, musculoskeletal)? @ -Differential Abdominal Pain Women: Appendicitis, Cholecystitis, diverticulosis, ischemic bowel, pancreatitis, hepatitis, UTI, gastroenteritis, AAA, incarcerated hernia, bowel obstruction, constipation, inflammatory bowel, hepatitis, peptic ulcer disease, splenic infarction, perforated viscus, vulvitis, ovarian torsion, PID, kidney stone, placenta abruption, this is not meant to be an all-inclusive list EKG interpreted by me (3pts min.). @ -As above X-rays interpreted by me (1pt min.). @ -None done CT interpreted by me (1pt min.). @ -CT abdomen and pelvis reveals no obvious acute intra-abdominal process. U/S interpreted by me (1pt. min.). @ -None done What testing was considered but not performed or refused? (CT, X-rays, U/S, labs)? Why? @ -None What meds were considered but not given or refused? Why? @ -None Did you discuss the management of the patient with other professionals (professionals i.e. , PA, ADDICTION SOCIAL WORKER, lab, RT, psych nurse, social insurance adviser, business continuity specialist, teacher, patient safety officer, outpatient case manager)? Give summary @ -No Was smoking cessation discussed for >3mins.? @ -No Was critical care preformed (if so, how long)? @ -No Were there social determinants of health that impacted care today? How? (Homelessness, low income, unemployed, alcoholism, drug addiction, transportation, low edu. Level, literacy, decrease access to med. care, penitentiary, rehab)? @ -No Was there de-escalation of care discussed even if they declined (Discuss DNR or withdrawal of care, Hospice)? DNR status @ -No What co-morbidities impacted this encounter? (DM, HTN, Smoking, COPD, CAD, Can cer, CVA, ARF, Chemo, Hep., AIDS, mental health diagnosis, sleep apnea, morbid obesity)? @ -None Was patient admitted / discharged? Hospital course, mention meds given and route, prescriptions, significant lab abnormalities, going to OR and other pertinent info. @ -Based on the patient's presentation and physical exam, presents complaining of abdominal pain. We will obtain abdominal labs, CT imaging. Patient agreement this plan. Workup was already started in triage has patient was a quick no. She'll be sent likely treatment with IV fluids, Protonix, Zofran, analgesia minutes. Patient's laboratory studies are remarkable for an elevated lipase of 592. Troponin undetectable. EKG showed no signs of acute ischemia. CT imaging rev ealed no evidence of acute intra-abdominal process. On reevaluation, patient feeling improved. Tolerating oral intake. She'll be discharged home at this time. Discussed with her she likely has a mild case of pancreatitis. Strict return precautions discussed. I instructed the patient to follow up with their PCP in the next 1-3 days. I explained that the patient should return to the emergency department if they experience any worsening symptoms. Strict return precautions were discussed with the patient. The patient expressed understanding of these instructions. I answered all questions that the patient had. The patient was discharged home in good condition with their prescriptions and follow up information. Undiagnosed new problem with uncertain prognosis? @ -No Drug Therapy requiring intensive monitoring for toxicity (Heparin, Nitro, Insulin, Cardizem)? @ -No Were any procedures done? @ -No Diagnosis/symptom? @ -Pancreatitis Acute, or Chronic, or Acute on Chronic? @ -Acute on chronic Uncomplicated (without systemic symptoms) or Complicated (systemic symptoms)? @ -Uncomplicated Side effects of treatment? @ -No Exacerbation, Progression, or Severe Exacerbation? @ -No Poses a threat to life or bodily function? How? (Chest pain, USA, MS, pneumonia, PE, COPD, DKA, ARF, appy, cholecystitis, CVA, Diverticulitis, Homicidal, Suicidal, threat to staff... and all critical care pts) @ -No (Virgil Gustafson) - Lab Data Lab Results 06/11/23 06/11/23 06/11/23 Range/Units 20:14 20:14 20:14 WBC 9.1 (3.8-10.6) k/uL RBC 5.03 (3.80-5.40) m/uL Hgb 15.7 (11.4-16.0) gm/dL Hct 46.5 H (34.0-46.0) % MCV 92.3 (80.0-100.0) fL MCH 31.1 (25.0-35.0) pg MCHC 33.7 (31.0-37.0) g/dL RDW 13.4 (11.5-15.5) % Plt Count 236 (150-450) k/uL MPV 8.6 Neutrophils % 48 % Lymphocytes % 44 % Monocytes % 5 % Eosinophils % 1 % Basophils % 1 % Neutrophils # 4.3 (1.3-7.7) k/uL Lymphocytes # 4.0 (1.0-4.8) k/uL Monocytes # 0.4 (0-1.0) k/uL Eosinophils # 0.1 (0-0.7) k/uL Basophils # 0.0 (0-0.2) k/uL PT 11.0 (10.0-12.5) sec INR 1.0 (<1.2) APTT 25.2 (22.0-30.0) sec D-Dimer (<0.60) mg/L FEU Sodium 138 (137-145) mmol/L Potassium 5.1 (3.5-5.1) mmol/L Chloride 103 (98-107) mmol/L Carbon Dioxide 21 L (22-30) mmol/L Anion Gap 14 mmol/L BUN 14 (7-17) mg/dL Creatinine 0.42 L (0.52-1.04) mg/dL Est GFR (CKD-EPI)AfAm >90 (>60 ml/min/1.73 sqM) Est GFR (CKD-EPI)NonAf >90 (>60 ml/min/1.73 sqM) Glucose 330 H (74-99) mg/dL Plasma Lactic Acid Fabrizio (0.7-2.0) mmol/L Calcium 9.9 (8.4-10.2) mg/dL Total Bilirubin 0.7 (0.2-1.3) mg/dL AST 31 (14-36) U/L ALT 30 (4-34) U/L Alkaline Phosphatase 135 H (38-126) U/L Troponin I (0.000-0.034) ng/mL Total Protein 7.9 (6.3-8.2) g/dL Albumin 4.7 (3.5-5.0) g/dL Amylase 91 (30-110) U/L Lipase 592 H (23-300) U/L 06/11/23 06/11/23 06/11/23 Range/Units 20:14 20:14 20:14 WBC (3.8-10.6) k/uL RBC (3.80-5.40) m/uL Hgb (11.4-16.0) gm/dL Hct (34.0-46.0) % MCV (80.0-100.0) fL MCH (25.0-35.0) pg MCHC (31.0-37.0) g/dL RDW (11.5-15.5) % Plt Count (150-450) k/uL MPV Neutrophils % % Lymphocytes % % Monocytes % % Eosinophils % % Basophils % % Neutrophils # (1.3-7.7) k/uL Lymphocytes # (1.0-4.8) k/uL Monocytes # (0-1.0) k/uL Eosinophils # (0-0.7) k/uL Basophils # (0-0.2) k/uL PT (10.0-12.5) sec INR (<1.2) APTT (22.0-30.0) sec D-Dimer 0.51 (<0.60) mg/L FEU Sodium (137-145) mmol/L Potassium (3.5-5.1) mmol/L Chloride (98-107) mmol/L Carbon Dioxide (22-30) mmol/L Anion Gap mmol/L BUN (7-17) mg/dL Creatinine (0.52-1.04) mg/dL Est GFR (CKD-EPI)AfAm (>60 ml/min/1.73 sqM) Est GFR (CKD-EPI)NonAf (>60 ml/min/1.73 sqM) Glucose (74-99) mg/dL Plasma Lactic Acid Fabrizio 1.9 (0.7-2.0) mmol/L Calcium (8.4-10.2) mg/dL Total Bilirubin (0.2-1.3) mg/dL AST (14-36) U/L ALT (4-34) U/L Alkaline Phosphatase (38-126) U/L Troponin I <0.012 (0.000-0.034) ng/mL Total Protein (6.3-8.2) g/dL Albumin (3.5-5.0) g/dL Amylase (30-110) U/L Lipase (23-300) U/L - EKG Data EKG Comments: 12-lead Electrocardiogram Interpretation Note EKG was reviewed and interpreted by myself. 12-lead ECG performed at 2013 is interpreted by me as revealing normal sinus rhythm at a rate of 71 beats per minute. Right axis deviation. CT intervals 164 ms, QRS duration is 87 ms, QTc is 426 milliseconds.. There were no ST or T wave abnormalities to suggest myocardial ischemia or injury. R wave progression across the precordium was satisfactory. By my interpretation this EKG is non-diagnostic for acute ischemia. (Virgil Gustafson) Disposition <Mor Lamas - Last Filed: 06/11/23 18:57> Is patient prescribed a controlled substance at d/c from ED?: No Time of Disposition: 03:05 <Virgil Gustafson - Last Filed: 06/12/23 07:47> Clinical Impression: Pancreatitis Disposition: HOME SELF-CARE Condition: Good Instructions (If sedation given, give patient instructions): Pancreatitis (ED) Referrals: Cedrick Flores MD [Primary Care Provider] - 1-2 days Karrie Artis MD [STAFF PHYSICIAN] - 1-2 days
[2023-06-11 20:40] LABS: Basophils % (A) 1 %; Eosinophils # (A) 0.1 k/uL (0-0.7); Eosinophils % (A) 1 %; HCT 46.5 % (34.0-46.0); HGB 15.7 gm/dL (11.4-16.0); Lymphocytes % (A) 44 %; MCH 31.1 pg (25.0-35.0); MCHC 33.7 g/dL (31.0-37.0); MCV 92.3 fL (80.0-100.0); Mean Platelet Volume 8.6; Monocytes # (A) 0.4 k/uL (0-1.0); Monocytes % (A) 5 %; Neutrophils # (A) 4.3 k/uL (1.3-7.7); Neutrophils % (A) 48 %; Platelet Count 236 k/uL (150-450); RBC 5.03 m/uL (3.80-5.40); RDW 13.4 % (11.5-15.5); WBC 9.1 k/uL (3.8-10.6)
[2023-06-11 20:47] LABS: Partial Thromboplastin Time 25.2 sec (22.0-30.0)
[2023-06-11 21:11] LABS: ALT 30 U/L (4-34); African American GFR (CKD) >90 (>60 ml/min/1.73 sqM); Albumin 4.7 g/dL (3.5-5.0); Amylase 91 U/L (30-110); Anion Gap 14 mmol/L; Blood Urea Nitrogen 14 mg/dL (7-17); Calcium 9.9 mg/dL (8.4-10.2); Carbon Dioxide 21 mmol/L (22-30); Chloride 103 mmol/L (98-107); Glucose 330 mg/dL (74-99); Lipase 592 U/L (23-300); Non-African American GFR(CKD) >90 (>60 ml/min/1.73 sqM); Sodium 138 mmol/L (137-145); Total Bilirubin 0.7 mg/dL (0.2-1.3); Total Protein 7.9 g/dL (6.3-8.2)
[2023-06-11 21:29] LABS: AST 31 U/L (14-36); Alkaline Phosphatase 135 U/L (38-126); Potassium 5.1 mmol/L (3.5-5.1)
[2023-06-11] MEDS ORDERED: SODIUM CHLORIDE 0.9% 1,000 ML IV STA (23:56)
[2023-06-11] MEDS ORDERED: ONDANSETRON 4 MG/2 ML VIAL IVP STA (23:56)
[2023-06-11] MEDS ORDERED: MORPHINE SULFATE 4 MG/ML SYRINGE IVP STA (23:56)
[2023-06-11] MEDS ORDERED: PANTOPRAZOLE 40 MG/10 ML VIAL IVP STA (23:57)
[2023-06-12 00:41] VITALS: RESP 18
--- NOTE | 2023-06-12 02:39 | CT ---
EXAM: CT Abdomen and Pelvis With Intravenous Contrast CLINICAL HISTORY: abd pain TECHNIQUE: Axial computed tomography images of the abdomen and pelvis with intravenous contrast. CTDI is 23.5 mGy and DLP is 1056.4 mGy-cm. This CT exam was performed using one or more of the following dose reduction techniques: automated exposure control, adjustment of the mA and/or kV according to patient size, and/or use of iterative reconstruction technique. COMPARISON: CT abdomen and pelvis dated 09/07/2022 FINDINGS: Lung bases: Unremarkable. No mass. No consolidation. ABDOMEN: Liver: Similar hepatic steatosis. Gallbladder and bile ducts: Unremarkable. No calcified stones. No ductal dilation. Pancreas: Unremarkable. No mass. No ductal dilation. Spleen: Unremarkable. No splenomegaly. Adrenals: Unremarkable. No mass. Kidneys and ureters: Unremarkable. No solid mass. No hydronephrosis. Delayed phase imaging demonstrates normal excreted contrast in the renal collecting systems. Stomach and bowel: Stomach is mildly distended with retained oral contents and gas. No gastric mucosal thickening. Moderate stool burden. PELVIS: Appendix: Status post appendectomy. Bladder: Unremarkable. No mass. Reproductive: Unremarkable as visualized. ABDOMEN and PELVIS: Intraperitoneal space: Unremarkable. No free air. No significant fluid collection. Bones/joints: No acute fracture. No dislocation. Soft tissues: Unremarkable. Vasculature: Similar atherosclerotic calcification of the normal caliber aorta and iliac arteries. No abdominal aortic aneurysm. Lymph nodes: Unremarkable. No enlarged lymph nodes. IMPRESSION: No significant abnormality within the abdomen or pelvis to suggest the patient's reported nonlocalizing clinical symptoms.
[2023-06-12] MEDS ORDERED: ONDANSETRON 4 MG ODT STARTER PACK 2 TAB BTL PO STA (03:21)
[2023-06-12] MEDS ORDERED: ACET/COD 300 MG/30 MG STARTER PACK 6 TAB BTL PO STA (03:21)
[2023-06-12 03:45] VITALS: BP 148/73; PULSE 68
== END 2023-06-12 03:45 | disposition home or self-care (01) ==
LOC: EC 18:36
DX: K85.90 Acute pancreatitis without necrosis or infection, unspecified (principal); E11.9 Type 2 diabetes mellitus without complications; I25.2 Old myocardial infarction; F17.200 Nicotine dependence, unspecified, uncomplicated; Z79.4 Long term (current) use of insulin; Z79.82 Long term (current) use of aspirin; Z79.899 Other long term (current) drug therapy
CPT/HCPCS: 99285; 96374; 96375 ×2; 96361; 36415; 93005; 85379; 80053; 82150; 83605; 83690; 84484; 85025; 85610; 85730; 74177; J2270; J2405; S0119; C9113; Q9967

== ENCOUNTER → 2023-06-30 | Outpatient (CLI) | payer MEDICARE ==
--- NOTE | 2023-06-30 15:01 | NM ---
Nuclear medicine hepatobiliary scan. HISTORY: Pain. DOSAGE: The patient received 8 0z Ensure plus and 5.2 mCi of Technetium 99m Choletec. FINDINGS: There is normal hepatic extraction. The gallbladder is seen by 18 minutes. There is bilia ry to bowel clearance by 30 minutes. Ejection fraction is 71%. IMPRESSION: 1. Normal hepatobiliary exam
== END | disposition home or self-care (01) ==
LOC: RADNMMAIN 12:21
PROVIDERS: ATTEND Family Medicine
DX: R10.13 Epigastric pain (principal)
CPT/HCPCS: 78226; A9537

== ENCOUNTER 2023-08-26 07:09 | Day surgery (SDC) | payer MEDICARE ==
[2023-08-25 12:05] VITALS: BMI 33.3
[2023-08-26 08:15] LABS: Glucose,Whole Blood 440 mg/dL (70-110)
[2023-08-26 08:15] LABS: Glucose,Whole Blood 456 mg/dL (70-110)
[2023-08-26] MEDS: INSULIN ASPART (NovoLOG) 100 UNIT/ML VIAL SQ ONE ×2 (08:22→09:25)
[2023-08-26] MEDS: LACTATED RINGERS 1,000 ML IV SCH (08:24)
[2023-08-26 08:33] VITALS: TEMP 97.2
[2023-08-26] MEDS ORDERED: LIDOCAINE 1% INJ 10MG/ML (20 ML MDV) ONE (08:45)
[2023-08-26] MEDS ORDERED: PROPOFOL 10 MG/ML 20 ML VIAL IV ONE (08:45)
--- NOTE | 2023-08-26 09:03 | P.PCN ---
Date of Procedure: 08/26/23 Procedure(s) Performed: BRIEF HISTORY: Patient is a 63-year-old, pleasant, white female scheduled for an upper endoscopy as a part of evaluation of right upper quadrant abdominal pain for the last 4 years duration. Pain is often intermittent and lasts for one to 2 weeks and results. Symptoms are worse with certain foods. On omeprazole as well as Carafate with no help. His and scheduled for an upper endoscopy to evaluate further.. PROCEDURE PERFORMED: Esophagogastroduodenoscopy with biopsy. PREOPERATIVE DIAGNOSIS: Right upper quadrant abdominal pain of 2 years duration. IV sedation per anesthesia. PROCEDURE: After informed consent was obtained, the patient was brought into the endoscopy unit. IV sedation was administered by Anesthesia under continuous monitoring. Initially the Olympus GIF-140 video endoscope was inserted into the mouth. Esophagus intubated without any difficulty. It was gradually advanced into the stomach and duodenum and carefully examined. The bulb and the second part of the duodenum appeared normal. Biopsies were done from the duodenum to evaluate for celiac disease. The scope at this time was withdrawn to the stomach, adequately insufflated with air, and upon careful examination, mucosa of the antrum, had gastritis and biopsies were done from this area. Mucosa of the body, cardia and the fundus appeared normal. The scope was then withdrawn into the esophagus. The GE junction was located at 39 cm from the incisors. The 2 islands of Zafar's appearing mucosa measuring 2 mm in sizes possible the GE junction was biopsied. The rest of the esophagus appeared normal. There were no erosions or ulcerations seen and the patient tolerated the procedure well. IMPRESSION: 1. Mild antral gastritis. 2. Small islands of Zafar's appearing mucosa just proximal to the GE junction status post biopsy. RECOMMENDATIONS: The findings of this examination were discussed with the patient as well as a family. She was advised to follow up with the biopsy results. She will continue with her current medications and she'll be seen in office in 3-4 weeks..
[2023-08-26 09:22] LABS: Glucose,Whole Blood 421 mg/dL (70-110)
[2023-08-26 09:38] VITALS: BP 121/57; PULSE 68; RESP 16
== END 2023-08-26 09:51 | disposition home or self-care (01) ==
LOC: ORWHC2ENDO 07:09
PROVIDERS: ATTEND Internal Medicine Gastroenterology
DX: K29.50 Unspecified chronic gastritis without bleeding (principal); K22.70 Barrett's esophagus without dysplasia; I25.2 Old myocardial infarction; I25.10 Atherosclerotic heart disease of native coronary artery without angina pectoris; F17.210 Nicotine dependence, cigarettes, uncomplicated; E11.9 Type 2 diabetes mellitus without complications; K21.9 Gastro-esophageal reflux disease without esophagitis; Z95.1 Presence of aortocoronary bypass graft; Z90.49 Acquired absence of other specified parts of digestive tract; Z98.890 Other specified postprocedural states; Z79.01 Long term (current) use of anticoagulants; Z79.4 Long term (current) use of insulin; Z79.02 Long term (current) use of antithrombotics/antiplatelets; Z79.899 Other long term (current) drug therapy
CPT/HCPCS: 88305; 88342; 43239; J2001; J2704

== ENCOUNTER → 2023-10-12 | Outpatient (CLI) | payer MEDICARE ==
[2023-10-13 01:31] LABS: HCT 43.8 % (37.2-46.3); HGB 14.5 g/dL (12.0-15.0); MCH 30.4 pg (27.0-32.0); MCHC 33.1 g/dL (32.0-37.0); MCV 91.8 FL (80.0-97.0); Mean Platelet Volume 12.1 FL (9.5-12.2); NRBC Per 100 WBC 0 X 10*3/uL (0.00-0.01); Platelet Count 254 X 10*3/uL (140-440); RBC 4.77 X 10*6/uL (4.10-5.20); RDW 12.4 % (11.5-14.5); WBC 10.61 X 10*3/uL (4.50-10.00)
[2023-10-13 02:00] LABS: BUN/Creat Ratio 16.67 Ratio (12.00-20.00); Calcium 10.2 mg/dL (8.7-10.3); Carbon Dioxide 24.1 mmol/L (21.6-31.8); Chloride 104 mmol/L (96-109); Glucose 119 mg/dL (70-110); Potassium 4.2 mmol/L (3.5-5.5); Sodium 142 mmol/L (135-145)
== END | disposition home or self-care (01) ==
LOC: LABPAT 15:05
PROVIDERS: ATTEND Internal Medicine Cardiovascular Disease
DX: Z01.812 Encounter for preprocedural laboratory examination (principal); R07.2 Precordial pain
CPT/HCPCS: 80048; 85027

== ENCOUNTER 2023-10-14 10:35 | Day surgery (SDC) | payer MEDICARE ==
[~2023-10-14 10:35] MED LIST: ALPRAZolam 0.25 MG TAB PO PRN; ALPRAZolam 0.5 MG TAB PO PRN; NITROGLYCERIN SL TABS 0.4 MG TAB SUBLINGUAL PRN
[2023-10-14] MEDS: SODIUM CHLORIDE 0.9% 1,000 ML in EMPTY BAG 1 BAG IV SCH ×2 (10:57→18:35)
[2023-10-14 10:58] LABS: Glucose,Whole Blood 211 mg/dL (70-110)
[2023-10-14] MEDS ORDERED: LIDOCAINE 1% INJ 10MG/ML (20 ML MDV) ONE ×2 (12:18→12:37)
[2023-10-14] MEDS ORDERED: fentaNYL (PF) 50 MCG/ML 2 ML AMP ONE (12:29)
[2023-10-14] MEDS: LIDOCAINE 1% INJ 10MG/ML (20 ML MDV) SQ ONE ×2 (12:32→12:39)
[2023-10-14] MEDS: MIDAZOLAM 2 MG/2 ML VIAL IVP ONE (12:35)
[2023-10-14] MEDS: fentaNYL (PF) 50 MCG/ML 2 ML AMP IVP ONE (12:35)
[2023-10-14] MEDS ORDERED: HEPARIN SODIUM 1,000 UN/ML (10ML VL) ONE (13:18)
[2023-10-14] MEDS ORDERED: CLOPIDOGREL 75 MG TAB ONE (13:29)
[2023-10-14] MEDS: HEPARIN SODIUM 1,000 UN/ML (10ML VL) IVP ONE (13:32)
[2023-10-14] MEDS: CLOPIDOGREL 75 MG TAB PO ONE (13:32)
[2023-10-14] MEDS: IOPAMIDOL-370 100ML BTL INJ ONE ×2 (13:42→14:10)
[2023-10-14] MEDS: NITROGLYCERIN 1000MCG/10ML SYRINGE INTRACORON ONE (13:55)
[2023-10-14] MEDS ORDERED: IPRATROPIUM-ALBUTEROL 3 ML NEB INHALATION PRN (14:06)
[2023-10-14] MEDS ORDERED: NITROGLYCERIN SL TABS 0.4 MG TAB SUBLINGUAL PRN ×2 (14:06→14:07)
[2023-10-14] MEDS ORDERED: ZOLPIDEM 5 MG TAB PO PRN (14:07)
[2023-10-14] MEDS ORDERED: ATROPINE SULFATE 0.1 MG/ML 10ML SYRINGE IV PRN (14:07)
[2023-10-14] MEDS ORDERED: MAG HYDROX/AL HYDROX/SIMETH 30 ML CUP PO PRN (14:07)
[2023-10-14] MEDS ORDERED: RX INFO: IV CONTRAST WAS GIVEN 1 EACH MISC MISCELLANE PRN (14:07)
--- NOTE | 2023-10-14 14:16 | P.PCN ---
Date of Procedure: 10/14/23 Operative Findings: PERCUTANEOUS CORONARY INTERVENTION Performing physician Prince Ernst M.D. Procedure Performed: 1. Successful stenting of the distal left circumflex using 2.5 x 18 mm Xience drug-eluting stent with an excellent angiographic results. 2. Successful stending of the mid left circumflex using 3.0 x 18 mm Xience drug- eluting stent with an excellent angiographic result. 3. Adjunctive use of intravascular imaging 4. Left common femoral artery angiogram Indication: Chest discomfort concerning for unstable angina in this 63-year-old female patient who sees Dr. Artis regularly. She underwent a heart catheterization and was found to have severe disease involving unprotected left circumflex coronary artery Approach: Left common femoral artery Complications: None Level of Sedation: Moderate with a sedation length of 30 minutes Procedure Discussion: After obtaining informed consent we decided to move forward with percutaneous coronary intervention of the left circumflex coronary artery with anticoagulation was initiated using heparin with continuous ACT monitoring. Subsequently I did engage the left main using EBU 3.75 guiding catheter. Subsequently and from the get go I wired the left circumflex using long run- through wire and short run-through wire because the support I needed. Intravascular ultrasound was performed and showed a diameter of the left circumflex between 3 mm to 3.5 mm. Predilatation was performed using 2.5 mm balloon before I deployed distally 2.5 x 18 mm stent and in the midportion 3.0 x 18 mm stent. The stent in the midportion was postdilated using 3.5 mm balloon. Final angiogram showed an excellent angiographic results and the procedure was completed with no complication. Postprocedure Management: 1. Dual antiplatelet therapy using aspirin and Plavix for at least 6 months 2. Aggressive cholesterol control 3. Risk factors modification
[2023-10-14 15:24] LABS: Glucose,Whole Blood 111 mg/dL (70-110)
[2023-10-14] MEDS: ASPIRIN 325 MG TAB PO STA (17:00)
[2023-10-14] MEDS: FENOFIBRATE 160 MG TAB PO SCH (17:07)
[2023-10-14] MEDS ORDERED: INSPUCOR MISCELLANE PRN (17:14)
[2023-10-14] MEDS ORDERED: INSULIN ASPART (NovoLOG) 100 UNIT/ML VIAL SQ PRN (17:14)
[2023-10-14] MEDS: INSULIN PUMP MEAL BOLUS 1 UNIT MISC MISCELLANE SCH (17:22)
[2023-10-14] MEDS ORDERED: INSULIN PUMP BASAL RATES 1 EACH MISC MISCELLANE PRN (18:00)
[2023-10-14 20:07] LABS: Glucose,Whole Blood 281 mg/dL (70-110)
--- NOTE | 2023-10-14 21:56 | LTR ---
Dear Cedrick, I performed cardiac catheterization on [facility]. A detailed catheterization note is enclosed for your records. In brief, cardiac catheterization reveals a tight stenosis in the [place] circumflex coronary artery for which she will undergo angioplasty with stent placement. Thank you for giving me the privilege of participating in the care of this pleasant lady. FIOR / ROBBIE: [id number] /
--- NOTE | 2023-10-14 21:56 | CC ---
CARDIAC CATHETERIZATION REPORT PROCEDURE PERFORMED: Cardiac catheterization. INDICATION: Unstable angina. HISTORY: This is a 63-year-old lady with history of coronary artery disease, status post CABG with BOLDEN to LAD and venous graft to PDA; who presented to me with symptoms of precordial chest pressure with jaw discomfort for which she is repeatedly using sublingual nitroglycerin. A Lexiscan, I performed, did not reveal any ischemia. I advised her to undergo cardiac catheterization for definitive diagnosis. She was explained of risks, benefits and alternatives; understood and accepted. PROCEDURE NOTE: After obtaining informed consent, left heart catheterization, coronary angiogram and selective injection of the bypass stent was performed via the left femoral artery using standard Lisbeth catheters. The patient tolerated the procedure well without any obvious immediate complications. Both the femoral pulses are feeble. I initially attempted a right femoral arterial access while it had good flow through the needle. I was not able to advance the wire into the iliac arteries. Hence, I proceeded with cardiac catheterization from the left femoral artery and this was completed uneventfully. The patient received moderate conscious sedation. Total sedation time was 30 minutes. FINDINGS: 1. Hemodynamics: Left ventricular end-diastolic pressure is 14 mm. There is no significant gradient across the aortic valve. 2. Left ventriculogram: Left ventriculogram was not performed. 3. Angiographic data: a.[place] coronary artery: Right coronary artery is totally occluded in its midportion. Left main coronary artery is a normal-sized vessel and is free of stenosis. Divides into left anterior descending coronary artery and circumflex coronary artery. LAD appears totally occluded proximally. Circumflex coronary artery is a large codominant system that shows a focal 90% stenosis in its midportion. 4. Selective injection of the bypass grafts; BOLDEN to LAD appears patent, free of significant disease at both anastomotic sites. 5. Selective injection of the venous graft to the right coronary artery. The graft is patent. Both the body of the graft is free of disease. Proximal and distal anastomotic sites are free of significant disease. CONCLUSIONS: 1. Three-vessel coronary artery disease as described above with patent BOLDEN to LAD and venous graft to the right coronary artery. 2. There is a significant progression in the circumflex coronary artery disease, which is probably responsible for the patient's symptoms. PLAN: I am going to ask Dr. Ernst, the on-call transition mgr to review the angiographic data and if necessary proceed with the intervention of the circumflex coronary artery. MMODL / IJN: [id number] /
[2023-10-14] MEDS: lisinopriL 20 MG TAB PO SCH (22:04)
[2023-10-14] MEDS: ATORVASTATIN 80 MG TAB PO SCH (22:04)
[2023-10-14] MEDS: ASPIRIN 325 MG TAB PO SCH (22:04)
[2023-10-14] MEDS: ISOSORBIDE MONONITRATE ER 30 MG TAB.ER.24H PO SCH (22:04)
[2023-10-14] MEDS: PANTOPRAZOLE 40 MG TABLET PO SCH (22:04)
[2023-10-14] MEDS: atenoloL 50 MG TAB PO SCH (22:05)
[2023-10-15 04:24] VITALS: RESP 18
[2023-10-15 05:54] LABS: Glucose,Whole Blood 226 mg/dL (70-110)
[2023-10-15 09:48] LABS: African American GFR (CKD) >90 (>60 ml/min/1.73 sqM); Non-African American GFR(CKD) >90 (>60 ml/min/1.73 sqM)
[2023-10-15] MEDS: FUROSEMIDE 20 MG TAB PO SCH (09:49)
[2023-10-15] MEDS: CLOPIDOGREL 75 MG TAB PO SCH (09:50)
[2023-10-15 10:59] VITALS: BMI 33.7
[2023-10-15 11:00] VITALS: BP 124/53; PULSE 68; TEMP 98
--- NOTE | 2023-10-15 11:44 | P.CRDCN ---
History of Present Illness History of present illness: This is a 63-year-old female who underwent cardiac catheterization yesterday with Dr. Arits revealing three-vessel coronary artery disease with patent BOLDEN to LAD and venous graft to the right coronary artery. There is significant progression in the circumflex coronary artery. Patient underwent stenting of the distal and mid left circumflex by Dr. Ernst. Patient examined this morning a t bedside. Patient is doing well post procedure. She denies any chest pain or pressure. She denies any shortness of breath. She is stable for discharge home today from a cardiac standpoint. Patient will be discharged home on dual antiplatelet therapy with aspirin and Plavix. DISCHARGE DIAGNOSIS: Unstable angina, status post cardiac catheterization with stenting of the distal and mid left circumflex Coronary artery disease with previous CABG Nurse practitioner note has been reviewed by physician. Signing provider agrees with the documented findings, assessment, and plan of care. Past Medical History Past Medical History: Asthma, Chest Pain / Angina, Diabetes Mellitus, GERD/Reflux, Hyperlipidemia, Hypertension, Myocardial Infarction ([place]), Osteo arthritis (OA) Additional Past Medical History / Comment(s): Pancreatitis. Last Myocardial Infarction Date:: 2002 History of Any Multi-Drug Resistant Organisms: None Reported Past Surgical History: Appendectomy, Coronary Bypass/CABG, Orthopedic Surgery Additional Past Surgical History / Comment(s): Open heart in 2002, bilateral carpal tunnel surgery. recent colonoscopy Past Anesthesia/Blood Transfusion Reactions: No Reported Reaction Smoking Status: Current every day smoker - Past Family History Mother History Unknown: Yes Medications and Allergies Home Medications Medication Instructions Recorded Confirmed Type Aspirin 325 mg PO HS 09/26/14 10/13/23 History Atorvastatin [Lipitor] 80 mg PO HS 09/26/14 10/13/23 History Isosorbide Mononitrate ER [Imdur] 30 mg PO HS 05/15/21 10/13/23 History Enalapril [Vasotec] 10 mg PO HS 08/29/21 10/13/23 History Furosemide [Lasix] 20 mg PO DAILY 08/29/21 10/13/23 History Nitroglycerin Sl Tabs [Nitrostat] 0.4 mg SUBLINGUAL Q5M PRN 08/29/21 10/13/23 History atenoloL [Tenormin] 50 mg PO HS 08/29/21 10/13/23 History Ipratropium/Albuter 20-100Mcg 1 puff INHALATION DIRECTED PRN 10/13/23 10/13/23 History [Combivent Respimat 20-100Mcg Inhaler] Omeprazole [PriLOSEC] 40 mg PO HS 10/13/23 10/13/23 History gemfibroziL [Lopid] 600 mg PO AC-BID 10/13/23 10/13/23 History metFORMIN HCL ER [Glucophage XR] 500 mg PO HS 10/13/23 10/13/23 History Clopidogrel [Plavix] 75 mg PO DAILY #90 tablet 10/15/23 Rx Allergies Allergy/AdvReac Type Severity Reaction Status Date / Time No Known Allergies Allergy Verified 10/14/23 10:55 Physical Exam Vitals: Vital Signs Temp Pulse Resp BP BP Pulse Ox 10/15/23 08:00 98 F 68 18 124/53 94 L 10/15/23 04:00 64 18 108/63 94 L 10/15/23 00:04 59 L 16 102/57 95 10/14/23 19:45 85 18 157/74 10/14/23 17:15 62 18 153/76 96 10/14/23 16:45 87 16 171/81 95 10/14/23 16:30 62 17 147/75 96 10/14/23 16:15 68 18 148/85 97 10/14/23 16:00 79 16 136/85 95 10/14/23 15:52 62 18 127/61 95 10/14/23 15:22 60 18 142/63 95 10/14/23 15:07 68 18 136/62 95 10/14/23 14:52 64 18 128/60 95 10/14/23 14:37 68 18 152/74 95 10/14/23 14:22 62 18 131/71 95 Intake and Output 10/14/23 10/15/23 10/15/23 22:59 06:59 14:59 Intake Total 118 Output Total 850 300 Balance -850 -300 118 Intake: Oral 118 Output: Urine 850 300 Uretheral (De Guzman) 850 Other: Weight 75.9 kg 75.9 kg Results 10/15/23 08:39 Comprehensive Metabolic Panel 10/15/23 Range/Units 08:39 Creatinine 0.56 (0.52-1.04) mg/dL Current Medications Generic Name Dose Route Start Last Admin Trade Name Cliftonq PRN Reason Stop Dose Admin Al Hydroxide/Mg Hydroxide 30 ml 10/14/23 14:07 Mag Hydrox/Al Hydrox/Simeth 30 Ml Cup PO 11/13/23 14:08 Q4HR PRN Heartburn Albuterol/Ipratropium 3 ml 10/14/23 14:06 Ipratropium-Albuterol 3 Ml Neb INHALATION RT-QID PRN Shortness Of Breath Alprazolam 0.25 mg 10/14/23 06:00 Alprazolam 0.25 Mg Tab PO 11/13/23 06:01 Q6HR PRN Mild Anxiety Alprazolam 0.5 mg 10/14/23 06:00 Alprazolam 0.5 Mg Tab PO 11/13/23 06:01 Q6HR PRN Moderate Anxiety Aspirin 325 mg 10/14/23 21:00 10/14/23 22:04 Aspirin 325 Mg Tab PO 11/13/23 21:01 325 mg HS ZAY Administration Atenolol 50 mg 10/14/23 21:00 10/14/23 22:05 Atenolol 50 Mg Tab PO 11/13/23 21:01 50 mg HS ZAY Administration Atorvastatin Calcium 80 mg 10/14/23 21:00 10/14/23 22:04 Atorvastatin 80 Mg Tab PO 11/13/23 21:01 80 mg HS ZAY Administration Atropine Sulfate 0.5 mg 10/14/23 14:07 Atropine Sulfate 0.1 Mg/Ml 10ml Syringe IV 11/13/23 14:08 ONCE PRN Symptomatic Bradycardia Clopidogrel Bisulfate 75 mg 10/15/23 09:00 10/15/23 09:50 Clopidogrel 75 Mg Tab PO 11/14/23 09:01 75 mg DAILY ZAY Administration Protocol Fenofibrate 160 mg 10/14/23 17:30 10/14/23 17:07 Fenofibrate 160 Mg Tab PO 160 mg AC-SUPPER ZAY Administration Furosemide 20 mg 10/15/23 09:00 10/15/23 09:49 Furosemide 20 Mg Tab PO 11/14/23 09:01 20 mg DAILY ZAY Administration Sodium Chloride 1,000 ml/ IV 1,000 mls @ 77.564 mls/hr 10/14/23 06:00 10/15/23 09:32 Solution IV 11/13/23 06:01 Not Given .[id number] ZAY 1 ML/KG/HR Sodium Chloride 1,000 ml/ IV 1,000 mls @ 75 mls/hr 10/14/23 14:15 10/15/23 04:08 Solution IV 11/13/23 14:16 Not Given .[id number] ZAY Insulin Aspart 0 unit 10/14/23 17:14 Insulin Aspart (Novolog) 100 Unit/Ml Vial SQ DAILY PRN Insulin Pump Replacement Isosorbide Mononitrate 30 mg 10/14/23 21:00 10/14/23 22:04 Isosorbide Mononitrate Er 30 Mg Tab.Er.24h PO 11/13/23 21:01 30 mg HS ZAY Administration Lisinopril 20 mg 10/14/23 21:00 10/14/23 22:04 Lisinopril 20 Mg Tab PO 11/13/23 21:01 20 mg HS ZAY Administration Miscellaneous Information 1 each 10/14/23 14:07 Rx Info: Iv Contrast Was Given 1 Each Misc MISCELLANE 10/16/23 14:08 DAILY PRN Per Protocol Miscellaneous Information 1 each 10/14/23 18:00 Insulin Pump Basal Rates 1 Each Misc MISCELLANE Q6HR PRN Blood Sugar - High Protocol Miscellaneous Information 0 unit 10/14/23 17:30 10/15/23 06:30 Insulin Pump Meal Bolus 1 Unit Misc MISCELLANE 3.8 unit ACHS ZAY Administration Protocol Miscellaneous Information 0 unit 10/14/23 17:14 Insulin Pump Correction Bolus 1 Unit Misc MISCELLANE ACHS PRN Blood Sugar - High Protocol Nitroglycerin 0.4 mg 10/14/23 06:00 Nitroglycerin Sl Tabs 0.4 Mg Tab SUBLINGUAL 11/13/23 06:01 Q5M PRN Chest Pain Pantoprazole Sodium 40 mg 10/14/23 21:00 10/14/23 22:04 Pantoprazole 40 Mg Tablet PO 11/13/23 21:01 40 mg HS ZAY Administration Zolpidem Tartrate 5 mg 10/14/23 14:07 Zolpidem 5 Mg Tab PO 11/13/23 14:08 HS PRN Insomnia Intake and Output 10/14/23 10/15/23 10/15/23 22:59 06:59 14:59 Intake Total 118 Output Total 850 300 Balance -850 -300 118 Intake: Oral 118 Output: Urine 850 300 Uretheral (De Guzman) 850 Other: Weight 75.9 kg 75.9 kg Patient Weight 10/16/23 06:59 Weight 75.9 kg 10/15/23 08:39
== END 2023-10-15 11:33 | disposition home or self-care (01) ==
LOC: CATHCVL 10:35 → 3SCARD 14:05 → CATHCVL 10-15 11:33
PROVIDERS: ATTEND Internal Medicine Cardiovascular Disease
DX: I25.110 Atherosclerotic heart disease of native coronary artery with unstable angina pectoris (principal); J45.909 Unspecified asthma, uncomplicated; E11.9 Type 2 diabetes mellitus without complications; K21.9 Gastro-esophageal reflux disease without esophagitis; E78.5 Hyperlipidemia, unspecified; I10 Essential (primary) hypertension; I25.2 Old myocardial infarction; M19.90 Unspecified osteoarthritis, unspecified site; F17.200 Nicotine dependence, unspecified, uncomplicated; Z95.5 Presence of coronary angioplasty implant and graft; Z79.82 Long term (current) use of aspirin; Z79.899 Other long term (current) drug therapy; Z79.02 Long term (current) use of antithrombotics/antiplatelets
CPT/HCPCS: 92978; 93458; 82565; C9600; J2250; J2001; J3010; J1644; Q9967; J2305

== ENCOUNTER → 2024-01-04 | Outpatient (CLI) | payer MEDICARE ==
[2024-01-04 17:14] LABS: African American GFR (CKD) >90 (>60 ml/min/1.73 sqM); Blood Urea Nitrogen 12 mg/dL (7-17); Non-African American GFR(CKD) >90 (>60 ml/min/1.73 sqM)
--- NOTE | 2024-01-04 18:32 | CT ---
EXAMINATION TYPE: CT abdomen pelvis w con CT DLP: 1370.3 mGycm, Automated exposure control for dose reduction was used. DATE OF EXAM: 01/04/2024 5:51 PM COMPARISON: 06/12/2023 CLINICAL INDICATION:Female, 63 years old with history of R10.32 LLQ PAIN; LLQ abdominal pain x3 weeks TECHNIQUE: Axial CT abdomen pelvis w con;Sagittal and coronal reformats were created on a separate w orkstation. Contrast used:100 mL of Isovue 300 with IV Contrast, (none if empty) Oral contrast used: with Oral Contrast (none if empty) FINDINGS: LOWER CHEST: Heart is mildly enlarged for size. ABDOMEN LIVER: Diffusely hypoattenuating parenchyma. GALLBLADDER AND BILE DUCTS: Unremarkable. PANCREAS: Unremarkable. SPLEEN: Unremarkable. ADRENAL GLANDS: Unremarkable. KIDNEYS AND URETERS: No evidence of hydronephrosis or renal calculus. The ureters are unremarkable. PELVIS BLADDER: Unremarkable REPRODUCTIVE: Unremarkable. ABDOMEN & PELVIS STOMACH AND BOWEL: No evidence of bowel obstruction. Scattered colonic diverticulosis. PERITONEUM/RETROPERITONEUM: No evidence of pneumoperitoneum or free fluid. VASCULATURE: No evidence of aortic aneurysm. MUSCULOSKELETAL: No acute osseous abnormalities LYMPH NODES: No gross evidence for lymphadenopathy. SOFT TISSUE/ABDOMINAL WALL: Unremarkable IMPRESSION: 1. No acute abdominal process to explain the patient's pain. No obstructive uropathy or renal calcul us. 2. Colonic diverticulosis. 3. Hepatic steatosis. 4. Mild Cardiomegaly.
== END | disposition home or self-care (01) ==
LOC: RADCTMAIN 15:23
PROVIDERS: ATTEND Family Medicine
DX: I51.7 Cardiomegaly (principal); K57.30 Diverticulosis of large intestine without perforation or abscess without bleeding; K76.0 Fatty (change of) liver, not elsewhere classified
CPT/HCPCS: 82565; 84520; 74177; 36415; Q9967

== ENCOUNTER 2025-01-24 19:16 | Emergency (ER) | payer MEDICARE ==
[2025-01-24 19:21] VITALS: BP 177/73; PULSE 84; RESP 18; TEMP 98.7
--- NOTE | 2025-01-24 19:51 | ED ---
Eye Problem HPI - General Chief complaint: Eye Problems Stated complaint: left eye vision loss Time Seen by Provider: 01/24/25 19:23 Source: patient, RN notes reviewed Mode of arrival: ambulatory Limitations: no limitations - History of Present Illness Initial comments: This is a 64-year-old female who presents to the emergency department for left eye visual loss. Last night around 10 PM patient was taking a shower and her vision in the left eye suddenly went black. States that it has remained primarily black, especially in the peripheral vision. She does have some vision still present in the medialmost aspect. She had some discomfort when this initially occurred but has otherwise not had any pain associated with this. Denies any nausea/vomiting. Denies any history of similar problems in the past. She had initially gone to urgent care and was sent in here for concern of retinal detachment. MD chief complaint: vision change - Related Data Home Medications Medication Instructions Recorded Confirmed Aspirin 325 mg PO HS 09/26/14 10/13/23 Atorvastatin [Lipitor] 80 mg PO HS 09/26/14 10/13/23 Isosorbide Mononitrate ER [Imdur] 30 mg PO HS 05/15/21 10/13/23 Enalapril [Vasotec] 10 mg PO HS 08/29/21 10/13/23 Furosemide [Lasix] 20 mg PO DAILY 08/29/21 10/13/23 Nitroglycerin Sl Tabs [Nitrostat] 0.4 mg SUBLINGUAL Q5M PRN 08/29/21 10/13/23 atenoloL [Tenormin] 50 mg PO HS 08/29/21 10/13/23 Ipratropium/Albuter 20-100Mcg 1 puff INHALATION DIRECTED PRN 10/13/23 [Combivent Respimat 20-100Mcg Inhaler] Omeprazole [PriLOSEC] 40 mg PO HS 10/13/23 10/13/23 gemfibroziL [Lopid] 600 mg PO AC-BID 10/13/23 10/13/23 metFORMIN HCL ER [Glucophage XR] 500 mg PO HS 10/13/23 10/13/23 Previous Rx's Medication Instructions Recorded Clopidogrel [Plavix] 75 mg PO DAILY #90 tablet 10/15/23 Allergies Allergy/AdvReac Type Severity Reaction Status Date / Time No Known Allergies Allergy Verified 01/24/25 19:21 Review of Systems ROS Statement: Those systems with pertinent positive or pertinent negative responses have been documented in the HPI. ROS Other: All systems not noted in ROS Statement are negative. Past Medical History Past Medical History: Asthma, Chest Pain / Angina, Diabetes Mellitus, GERD/Reflux, Hyperlipidemia, Hypertension, Myocardial Infarction ([place]), Ost eoarthritis (OA) Additional Past Medical History / Comment(s): Pancreatitis. Last Myocardial Infarction Date:: 2002 History of Any Multi-Drug Resistant Organisms: None Reported Past Surgical History: Appendectomy, Coronary Bypass/CABG, Orthopedic Surgery Additional Past Surgical History / Comment(s): Open heart in 2003, bilateral carpal tunnel surgery. recent colonoscopy Past Anesthesia/Blood Transfusion Reactions: No Reported Reaction Past Psychological History: No Psychological Hx Reported Smoking Status: Current every day smoker Past Alcohol Use History: None Reported Past Drug Use History: None Reported - Past Family History Mother History Unknown: Yes General Exam Limitations: no limitations General appearance: alert, in no apparent distress Head exam: Present: atraumatic, normocephalic, normal inspection Eye exam: Present: PERRL, EOMI Expanded Visual acuity (R) = 20/: 30 Visual acuity (L) = 20/: 70 With correction: Yes Respiratory exam: Present: normal lung sounds bilaterally. Absent: respiratory distress, wheezes, rales, rhonchi, stridor Cardiovascular Exam: Present: regular rate, normal rhythm Neurological exam: Present: alert, oriented X3, CN II-XII intact Psychiatric exam: Present: normal affect, normal mood Skin exam: Present: warm, dry, intact, normal color. Absent: rash Course Vital Signs 01/24/25 19:17 Temperature 98.7 F Pulse Rate 84 Respiratory 18 Rate Blood Pressure 177/73 O2 Sat by Pulse 95 Oximetry Medical Decision Making - Medical Decision Making This is a 64 year old female who presents to the emergency department for vision loss in the left eye. Was pt. sent in by a medical professional or institution? @ -No Did you speak to anyone other than the patient for history? @ -No Did you review nursing and triage notes? @ -Yes, and I agree, it is accurate with regards to the patient's symptoms. Were old charts reviewed? @ -No Differential Diagnosis? @ -Retinal detachment, vitreous detachment, CVA/TIA, optic neuritis, this is not meant to be an all-inclusive list. EKG interpreted by me (3pts min.)? @ -Not obtained X-rays interpreted by me (1pt min.)? @ -Not obtained CT interpreted by me (1pt min.)? @ -Not obtained U/S interpreted by me (1pt. min.)? @ -Not obtained What testing was considered but not performed? (CT, X-rays, U/S, labs)? Why? @ -None What meds were considered but not given? Why? @ -None Did you discuss the management of the patient with other professionals? @ -Yes, Dr. Lara, ophthalmology, who accepts the patient for transfer. Did you reconcile home meds? @ -No Was smoking cessation discussed for >3mins.? @ -I discussed smoking cessation for greater than 3 minutes. The risk of smoking were discussed with the patient including but not limited to risks of cancer, stroke, coronary artery disease and COPD. Also discussed with patient were multiple methods of quitting smoking. Lastly we discussed the financial cost of smoking. Was critical care preformed (if so, how long)? @ -No Were there social determinants of health that impacted care today? How? (Homelessness, low income, unemployed, alcoholism, drug addiction, transportation, low edu. Level, literacy, decrease access to med. care, correction, rehab)? @ -No Was there de-escalation of care discussed even if they declined? (Discuss DNR or withdrawal of care, Hospice)? @ -No What co-morbidities impacted this encounter? (DM, HTN, Smoking, COPD, CAD, Cancer, CVA, Hep., AIDS, mental health diagnosis, sleep apnea, morbid obesity)? @ -Smoking, DM, HLD, HTN Was patient admitted / discharged? @ -Transferred. Patient reports that at approximately 10 PM yesterday evening while in the shower her vision in the left eye went black. Her vision is still largely impaired aside from the medialmost aspect. Visual acuity in the left eye is 20/70 and in the right eye is 20/30. Ocular ultrasound performed with ED attending Dr. Fernandez. Ultrasound demonstrated a floating membrane that remained anchored to the optic disc concerning for possible retinal detachment. Patient has no other strokelike symptoms. She is also on Plavix. We did reach out to our simulation tech on-call, however we were unable to get a hold of him. Given the concern for possible retinal detachment or other ophthalmologic emergency, patient transferred to facility with ophthalmology coverage. Patient accepted for ED to ED transfer at [facility]. Dr. Nathan is the accepting ED provider. Patient transferred by private vehicle. Advised she stay n.p.o. in the event that any surgical intervention is needed. Case discussed with ED at tending Dr. Fernandez. Undiagnosed new problem with uncertain prognosis? @ -None Drug Therapy requiring intensive monitoring for toxicity (Heparin, Nitro, Insulin, Cardizem)? @ -None Were any procedures done? @ -None Diagnosis/symptom? @ -Vision loss in left eye Acute, or Chronic, or Acute on Chronic? @ -Acute Uncomplicated (without systemic symptoms) or Complicated (systemic symptoms)? @ -Uncomplicated Side effects of treatment? @ -None Exacerbation, Progression, or Severe Exacerbation] @ -Not applicable Poses a threat to life or bodily function? @ -Yes, can lead to permanent vision loss. Disposition Clinical Impression: Vision loss, left eye, Nicotine dependence Disposition: OTHER INSTITUTION NOT DEFINED Referrals: Cedrick Flores MD [Primary Care Provider] - 1-2 days - Out of Hospital Transfer - Req. Specs Out of Hospital Transfer - Requested Specifics: Other Emergency Center ([facility])
== END 2025-01-24 21:57 | disposition other institution (70) ==
LOC: EC 19:16
DX: H54.62 Unqualified visual loss, left eye, normal vision right eye (principal); E11.9 Type 2 diabetes mellitus without complications; E78.5 Hyperlipidemia, unspecified; I10 Essential (primary) hypertension; F17.200 Nicotine dependence, unspecified, uncomplicated
CPT/HCPCS: 99284

== ENCOUNTER → 2025-01-25 | Outpatient (CLI) | payer MEDICARE ==
--- NOTE | 2025-01-25 17:01 | CTL ---
EXAMINATION TYPE: CT Low Dose Lung DATE OF EXAM: 01/25/2025 3:46 PM COMPARISON: 04/03/2023 CLINICAL INDICATION: Female, 64 years old with history of Z12.2 ENCNTR SCREEN FOR MALIGNANT NEOPLASM OF RESP; history of smoking, history of tobacco use. TECHNIQUE: Multiple axial non-contrast scans were obtained from approximately the lung apices through the upper abdomen. Coronal and sagittal reformatted images were obtained. Low dose technique was uti lized. MIP were created on a separate workstation and submitted for review. CT DLP: 82.9 mGycm, Automated exposure control for dose reduction was used. CT Contrast: Contrast used: None Oral contrast used: None FINDINGS: Lack of intravenous contrast and low dose technique limits the evaluation of the vascular and soft ti ssue structures. LUNGS: No evidence of pulmonary fibrosis. No evidence of focal consolidation, pneumothorax or pleural effusion. Centrilobular emphysema changes. Nodules: RUL: None. RML: 3 mm series 6 image 30. RLL: 3 mm series 6 image 34. TERRIE: None. LLL: None. AIRWAY: Patent and unremarkable. HEART: Size within normal limits. Mild coronary artery calcifications present. Thickening and calcif ication of aortic valve present. MEDIASTINUM: No gross evidence of adenopathy. VASCULATURE: No aortic aneurysm. MUSCULOSKELETAL: No acute osseous abnormalities SOFT TISSUES/LYMPH NODES: Unremarkable. LOWER NECK: No significant findings. UPPER ABDOMEN: No significant findings. Posterior back wall sebaceous cysts measuring up to 14 mm. IMPRESSION: 1. No clinically significant pulmonary nodules. 2. Mild emphysema. CT LUNG RAD AND CT CHEST RECOMMENDATION: Lung-Rad 2 Benign Appearance or Behavior: Continue annual sc reening with LDCT in 12 months. S Modifier (other clinically significant findings): None Recommend smoking cessation (if current smoker), or continuation of smoking cessation (if prior smoke r). Annual screening for lung cancer with low-dose computed tomography is recommended in adults ages 55 to 77 years who have a 30 pack-year smoking history and currently smoke or have quit within the pa st 15 years. Screening should be discontinued once a person has not smoked for 15 years or develops a health problem that substantially limits life expectancy or the ability or willingness to have curat shawna lung surgery. Lung rads 2021 [email or web address] [email or web address], , 01/25/2025 4:59 PM
== END | disposition home or self-care (01) ==
LOC: RADCTMAIN 15:25
PROVIDERS: ATTEND Family Medicine
DX: Z12.2 Encounter for screening for malignant neoplasm of respiratory organs (principal); F17.210 Nicotine dependence, cigarettes, uncomplicated; J43.2 Centrilobular emphysema
CPT/HCPCS: 71271